=== PATIENT | female | born 1960 | race Caucasian/White ===

== ENCOUNTER 2016-06-21 10:50 | Emergency (ER) | payer MEDICARE, MEDICAID ==
[~2016-06-21] VITALS: Wt 127.0 kg
[~2016-06-21 10:50] MED LIST: ALBUTEROL0.09 MG/A1 INH; ALBUTEROL0.09 MG/A2 IH; ALBUTEROL0.63 MG/3 INH; ALBUTEROL2.5 MG/0.5 INH; ALEVE220 M1 PO; ALTOCOR60 MG PO; AMOXIL500 MG PO; ASPIRIN ADULT L81 M1 PO; ASPIRIN CHEWABL81 MG PO; ASPIRIN325 M2 PO; ASPIRIN325 MG PO; B12,B-12,B 12500 MC1 PO; BACTRIM DS 8001 TA1 PO; BENADRYL ALLERG25 M5 PO; CEPHALEXIN500 M1 PO; CHOLESTEROL MEDS; CIPRO500 MG PO; CIPROFLOXACIN500 MG PO; CRESTOR20 M1 PO; CRESTOR20 MG PO; DIABETA5 MG PO; DOXYCYCLINE HY100 M3 PO; DOXYCYCLINE100 M3 PO; DUONEB 3 MG/3 ML3 M1 INH; EUCERIN, DERMA120 GM T; FAMOTIDINE20 MG PO; FEOSOL325 MG PO; FLAGYL500 MG PO; FLEXERIL10 MG PO; FLONASE ALLERG9.9 ML NAS; GABAPENTIN300 M1 PO; GLIPIZIDE10 M2 PO; HUMALOG100 U/ML SC; HUMALOG100 UNIT/2 SQ; HYDROCHLOROTHIA25 MG PO; HYDROCODONE BIT1 T11 PO; HYDRODIURIL25 MG PO; INVOKANA100 M1 PO; INVOKANA300 M1 PO; IRON325 M1 PO; KEFLEX500 MG PO; LANTUS100 U/ML SC; LEVOTHYROXIN0.125 M1 PO; LEVOTHYROXIN0.125 MG PO; LEVOTHYROXINE0.05 MG PO; LOMOTIL 0.025 M1 TA1 PO; LOMOTIL 0.025 M1 TAB PO; Lomotil,Lonox 01 TAB PO; Lopressor25 MG PO; MEDROL DOSEPAK4 MG PO; MELATONIN10 M2 PO; MELATONIN10 M3 PO; MELOXICAM7.5 MG PO; METFORMIN1000 MG PO; METFORMIN500 MG PO; METOPROLOL SUCC25 M2 PO; MICRONASE5 MG PO; MOTRIN800 MG PO; NEURONTIN300 MG PO; NEURONTIN400 MG PO; NORCO 5-325 TA1 EACH PO; NOVOLIN 70/30 710 ML SC; NOVOLOG 70/30 M10 ML; NOVOLOG1 UNIT/0.0 SC; Nizoral 2%15 GM PO; OFLOXACIN 10 ML10 M1 INTRAOC; PEPCID20 MG PO; PERCOCET 325 MG1 TA2 PO; PRAVACHOL40 MG PO; PREDNISONE10 MG PO; PREDNISONE20 MG PO; PRILOSEC20 M1 PO; PRILOSEC20 MG PO; PROAIR HFA0.09 MG/AC IH; PROVENTIL0.09 MG/A1 IH; PROVENTIL0.09 MG/A1 INH; PROVENTIL0.09 MG/AC IH; PROZAC40 M1 PO; PROZAC40 MG PO; Phenergan25 MG PO; REGLAN5 MG PO; ROBITUSSIN-AC 160 ML PO; SYMBICORT1 AE1 INH; SYNTHROID0.025 MG PO; SYNTHROID0.1 MG PO; TRAMADOL HCL50 MG PO; TRAMADOL50 MG PO; TRIAMCINOLONE AC0.1% T; TRILIPIX45 MG PO; TRIMOX500 MG PO; TRULICITY0.75 MG/0. SC; VIBRAMYCIN100 MG PO; VICODIN 5/500 505 MG PO; VISTARIL25 M1 PO; VISTARIL25 M2 PO; VISTARIL25 MG PO; VITAMIN D22000 UNIT PO; VITAMIN D50000 I3 PO; ZITHROMAX Z PA250 MG PO; ZOFRAN ODT4 MG SL; ZYRTEC10 M1 PO; [UNRECOGNIZED DRUG - OTHER] OP; [UNRECOGNIZED DRUG - OTHER] TD
[2016-06-21] MEDS ORDERED: CEFADROXIL500 M1 PO (11:51)
[2016-06-21] MEDS ORDERED: HYDROCODONE BIT1 T11 PO (11:51)
[2016-06-21] MEDS ORDERED: CLARITIN10 MG PO (11:51)
== END 2016-06-21 12:38 | disposition home or self-care (01) ==
LOC: ED 10:50
DX: H01.001 Unspecified blepharitis right upper eyelid (principal); E11.9 Type 2 diabetes mellitus without complications; F17.200 Nicotine dependence, unspecified, uncomplicated; Z95.5 Presence of coronary angioplasty implant and graft; Z88.8 Allergy status to other drugs, medicaments and biological substances; Z79.4 Long term (current) use of insulin; Z79.899 Other long term (current) drug therapy

== ENCOUNTER 2016-09-29 12:35 | Emergency (ER) | payer MEDICARE, MEDICAID ==
[~2016-09-29] VITALS: Ht 167.6 cm; Wt 131.5 kg
[~2016-09-29 12:35] MED LIST changes: +CEFADROXIL500 M1 PO; +CLARITIN10 MG PO
[2016-09-29] MEDS ORDERED: FISH OIL500 M2 PO (12:58)
[2016-09-29] MEDS ORDERED: EFFEXOR XR75 M1 PO (12:59)
[2016-09-29 13:16] LABS: BASO % 0.4 % (0.0-1.0); EOS # 0.2 10*3/uL (0.0-0.4); EOS % 2.6 % (1.0-4.0); IG # 0.1 10*3/uL (0.0-0.1); LYMPH # 2.5 10*3/uL (1.3-4.4); MEAN CORPUSCULAR HGB 28.4 pg (27.0-31.0); MEAN CORPUSCULAR HGB CONC 32.6 g/dl (33.0-37.0); MEAN PLATELET VOLUME 9.4 fl (9.6-12.3); MONO # 0.3 10*3/uL (0.1-1.0); MONO % 3.4 % (3.0-9.0); NEUT # 4.3 10*3/uL (2.3-7.9); NEUT % 58.6 % (47.0-73.0); PLATELET COUNT AUTOMATED 277 10*3/uL (130-400); RED BLOOD COUNT 5.29 10*6/uL (4.10-5.10); RED CELL DISTRI WIDTH 13.6 % (0-14.5); WHITE BLOOD COUNT 7.3 10*3/uL (4.8-10.8)
[2016-09-29 13:22] LABS: INTERNATIONAL NORM RATIO 0.9 (2.0-3.5)
[2016-09-29 13:28] LABS: ALBUMIN 3.2 gm/dl (3.1-4.5); ALKALINE PHOSPHATASE 145 U/L (45-117); BILIRUBIN, TOTAL 0.2 mg/dl (0.2-1.0); BUN 14 mg/dl (7-24); CARBON DIOXIDE 36 mmol/L (21-32); CHLORIDE 98 mmol/L (98-107); EST GLOM FILT AFRICAN AMERICAN > 60 ml/min; GLUCOSE 222 mg/dL (65-99); MAGNESIUM 1.7 mg/dL (1.5-2.1); POTASSIUM 4.4 mmol/L (3.5-5.1); SGOT/AST 23 IU/L (3-35); SGPT/ALT 32 U/L (12-78); SODIUM 138 mmol/L (136-145); TOTAL PROTEIN 7.6 gm/dL (6.4-8.2)
[2016-09-29] MEDS ORDERED: HYDROCHLOROTHIA25 M1 PO (13:31)
[2016-09-29] MEDS ORDERED: LOMOTIL 0.025 M1 TA1 PO (13:32)
[2016-09-29] MEDS ORDERED: LANTUS100 U/ML SC (13:33)
[2016-09-29 13:34] LABS: TROPONIN I < 0.015 ng/ml (<0.045)
== END 2016-09-29 15:36 | disposition short-term general hospital (02) ==
LOC: ED 12:35
PROVIDERS: Registered Nurse
DX: R20.9 Unspecified disturbances of skin sensation (principal); F17.200 Nicotine dependence, unspecified, uncomplicated; Z88.8 Allergy status to other drugs, medicaments and biological substances; Z79.82 Long term (current) use of aspirin; Z79.899 Other long term (current) drug therapy; Z98.890 Other specified postprocedural states

== ENCOUNTER 2016-10-27 05:41 | Emergency (ER) | payer MEDICARE, MEDICAID ==
[~2016-10-27] VITALS: Ht 167.6 cm; Wt 127.0 kg
--- NOTE | ~2016-10-27 | EKG ---
[place], [place] ELECTROCARDIOGRAM REPORT NAME: ESTHER STERN UNIT #: [id number] ROOM: DOCTOR: KITTY HONG MD BIRTHDATE: [birth year] DOS: 10/27/2016 TIME: 06:27 a.m. Normal sinus rhythm at rate of 77. Normal electrocardiogram. KITTY HONG MD CM:EKGRPT:ELECTROCARDIOGRAM REPORT [id number] KITTY HONG MD
[~2016-10-27 05:41] MED LIST changes: +EFFEXOR XR75 M1 PO; +FISH OIL500 M2 PO; +HYDROCHLOROTHIA25 M1 PO
[2016-10-27] MEDS ORDERED: PLAVIX75 M1 PO (05:52)
[2016-10-27] MEDS ORDERED: PERCOCET 325 MG1 TA5 PO (05:57)
[2016-10-27] MEDS ORDERED: ATORVASTATIN CA40 M1 PO (05:57)
[2016-10-27 06:33] LABS: BASO # 0.1 10*3/uL (0.0-0.1); BASO % 0.3 % (0.0-1.0); EOS # 0.2 10*3/uL (0.0-0.4); EOS % 1.3 % (1.0-4.0); HEMATOCRIT 50.9 % (37.0-47.0); HEMOGLOBIN 16.7 g/dl (12.0-16.0); IG # 0.1 10*3/uL (0.0-0.1); LYMPH # 1.2 10*3/uL (1.3-4.4); LYMPH % 7.7 % (27.0-41.0); MEAN CORPUSCULAR HGB 28.2 pg (27.0-31.0); MEAN CORPUSCULAR HGB CONC 32.8 g/dl (33.0-37.0); MEAN PLATELET VOLUME 9.7 fl (9.6-12.3); MONO # 0.8 10*3/uL (0.1-1.0); MONO % 5.2 % (3.0-9.0); NEUT # 13.4 10*3/uL (2.3-7.9); NEUT % 85.2 % (47.0-73.0); PLATELET COUNT AUTOMATED 316 10*3/uL (130-400); RED BLOOD COUNT 5.92 10*6/uL (4.10-5.10); RED CELL DISTRI WIDTH 14.6 % (0-14.5); WHITE BLOOD COUNT 15.8 10*3/uL (4.8-10.8)
[2016-10-27 07:26] LABS: ALBUMIN 3.3 gm/dl (3.1-4.5); ALKALINE PHOSPHATASE 162 U/L (45-117); BILIRUBIN, TOTAL 0.4 mg/dl (0.2-1.0); BUN 16 mg/dl (7-24); C-REACTIVE PROTEIN 2.18 MG/DL (0-0.3); CARBON DIOXIDE 27 mmol/L (21-32); CHLORIDE 101 mmol/L (98-107); EST GLOM FILT AFRICAN AMERICAN > 60 ml/min; GLUCOSE 203 mg/dL (65-99); MAGNESIUM 1.8 mg/dL (1.5-2.1); POTASSIUM 3.7 mmol/L (3.5-5.1); SGOT/AST 36 IU/L (3-35); SGPT/ALT 38 U/L (12-78); SODIUM 138 mmol/L (136-145); TOTAL PROTEIN 7.4 gm/dL (6.4-8.2)
[2016-10-27 07:28] LABS: TROPONIN I < 0.015 ng/ml (<0.045)
[2016-10-27 09:13] LABS: LA>2 REFLEX 2 HR DRAW NOW
[2016-10-27 09:33] LABS: LA>2 RFLX FOLLOW UP AT 2 HRS 2.2 mmol/L (0.4-2.0)
[2016-10-27] MEDS ORDERED: ZOFRAN ODT4 MG SL (11:16)
[2016-10-27 11:26] LABS: LA>2 REFLEX 4 HR DRAW NOW
== END 2016-10-27 11:19 | disposition home or self-care (01) ==
LOC: ED 05:41
PROVIDERS: Emergency Medicine; Emergency Medicine Emergency Medical Services
DX: K52.9 Noninfective gastroenteritis and colitis, unspecified (principal); J45.909 Unspecified asthma, uncomplicated; E11.9 Type 2 diabetes mellitus without complications; K21.9 Gastro-esophageal reflux disease without esophagitis; E78.5 Hyperlipidemia, unspecified; I10 Essential (primary) hypertension; G89.29 Other chronic pain; M54.9 Dorsalgia, unspecified; I73.9 Peripheral vascular disease, unspecified; Z79.82 Long term (current) use of aspirin; Z79.899 Other long term (current) drug therapy

== ENCOUNTER → 2016-11-23 | Outpatient (CLI) | payer MEDICARE, MEDICAID ==
[~2016-11-23] MED LIST changes: +ATORVASTATIN CA40 M1 PO; +PERCOCET 325 MG1 TA5 PO; +PLAVIX75 M1 PO
--- NOTE | ~2016-11-23 | PR ---
[place], [place] PROGRESS NOTE NAME: ESTHER STERN [facility] #: [id number] UNIT #: [id number] ROOM: DOCTOR: YU RosalesNEVA BIRTHDATE: [birth year] DOS: 11/23/2016 CHIEF COMPLAINT: Diabetic foot ulcer. HISTORY OF PRESENT ILLNESS: This is a 56-year-old female known to the Wound Clinic for recurrent diabetic foot ulcerations. She was discharged back sometime in July where she was here for diabetic foot ulcers, which had healed as well as an abdominal wound secondary to an abscess, but she comes in today stating that she is having recurrent new ulcer noted on the right great toe, which she has had recurrently for years now. She states that she was recently seen by Podiatry and had the wound debrided and also had new diabetic shoes made, but they are just regular molds, but not custom-molded inserts. She does not have any pain with the wounds. They have been present for approximately a few weeks now, but she says it seems to be getting worse and she would like us to evaluate it. There is some bloody drainage occasionally. She does not have any type of dressing supplies and she has not put anything on her wound other than just socks. PAST MEDICAL HISTORY: Significant for multiple medical problems include AAA without rupture, acute renal failure, acute gastroenteritis, asthma exacerbation, atypical chest pain, B12 deficiency, bacteremia, blepharitis, cellulitis, chest pain, chronic back pain, chronic hip pain, constipation, contact dermatitis, severe dermatitis, diabetes type 2, diabetic gastroparesis, dyspnea, hypertension, erythrocytosis, facial parathesias, failure of outpatient treatment, history of fatty liver, gastritis, gastroparesis, GI bleed, carpal tunnel surgery, history of osteomyelitis, history of previous diabetic foot ulcers, hyperglycemia, hyperkalemia, hypoglycemia, hypotension, hypothyroidism, hypoxia, lactic acidosis, leukocytosis, moderate protein-calorie malnutrition, multiple abrasions, obesity, peripheral arterial disease, paronychia, partial small-bowel obstruction, rash, right upper quadrant pain, status post recent carotid endarterectomy on the right side with apparently a small stroke, previous surgery carpal tunnel, knee surgery, EGD, colonoscopy, , right leg angioplasty with stents and stress test. She is status post . SOCIAL HISTORY: She does continue to smoke, does not drink alcohol. She has tried to quit in the past, but has been unsuccessful. FAMILY HISTORY: Significant for colon cancer and lung cancer. CURRENT MEDICATIONS: Her most recent medications are as follows: Hydrochlorothiazide 25 mg p.o. daily, Reglan 5 mg before meals, vitamin D2 50,000 units once a week, 30 units of lispro t.i.d., metoprolol 25 p.o. b.i.d., aspirin 325 p.o. daily, hydroxyzine 25 p.o. t.i.d., albuterol 2 puffs and p.r.n., 0.125 mg p.o. daily of levothyroxine, gabapentin 400 mg p.o. q.i.d., melatonin 10 mg p.o. at bedtime, omega-3 fish oil 2000 units daily, Effexor XR 75 p.o. b.i.d., Lomotil 1 tablet p.o. t.i.d. p.r.n. for diarrhea, Lantus 80 units subQ at bedtime, Plavix 75 p.o. daily, atorvastatin 40 mg p.o. q.p.m. and Percocet 1 tablet p.o. t.i.d. p.r.n. for pain. ALLERGIES: TAPE AND RED FOOD COLORED COLORING. I BELIEVE THERE IS AN ALLERGY [place], [place] [facility]GR[id number] UNIT #: [id number] ROOM: DOCTOR: NEVA NICHOLAS M.D. BIRTHDATE: [birth year] TO PROZA WELL CAUSING SEVERE DERMATITIS. SHE ALSO HAD SOME ALLERGY FROM TOTAL CONTACT CAST MATERIAL. REVIEW OF SYSTEMS: Currently, she denies any pain with the wound. There are no fevers or chills reported. She does complain of occasional GERD, which is chronic that she has had for ____. She does complain of some occasional facial drooping that she has noted since her stroke, but it is very mild and it is definitely improving. The rest of her review of systems including constitutional, HEENT, neck cardiovascular, respiratory, GI, , musculoskeletal, joints, extremities, integumentary, skin, neurologic and psychiatric are negative. At this time, she also does state that she has a fungal or tinea rash on her feet and was wondering if we could prescribe some medication for that. She tried a prescription antifungal cream, but she still has the rash. FOCUSED PHYSICAL EXAMINATION: She is in no acute distress, pleasant, cooperative. Temperature is 98.7, pulse of 80, respirations 18, blood pressure is 118/56. She had an IRIS done, which was 0.97 on the left and 0.88 on the right. She has a wound present on the plantar aspect of the right great toe, right between the fissure area at the proximal joint area. It is measuring 0.3 x 1.7 x 0.3. There is a very thick callused area with some undermining noted from 12-1 o'clock with a maximum depth of 0.5. There is some bleeding noted also at the deeper part of the wound, which appears to be old and secondary to repetitive trauma. Her lower extremity, it is quite hyperkeratotic with very thick callus. She has got palpable pedal pulses. Her toes are warm. She has got good capillary refill. Her foot assessment shows absent sensation in both of her feet. She does have some excoriation, cracking and mild tinea type rash present on the mid foot to ankle area noted. The wound was debrided of hyperkeratotic tissue as well as through the subcutaneous tissue. There was minimal bleeding that was controlled with pressure. Cetacaine spray was used for topical anesthesia. INSTRUMENTS USED: Scalpel, a #15 blade and forceps and scissors, all the undermining was cut away and the post-debridement measurements are as follows: 1.2 x 1.5 x 0.3 in depth. Her most recent blood work shows hemoglobin of 16.7, a white count of 15.8; this is back in early October. Platelets are 316. Chem-7 shows a glucose of 203, BUN of 16, creatinine of 0.8. She had a mildly low prealbumin of 19. ASSESSMENT AND PLAN: Diabetic foot ulcer secondary to severe hyperkeratosis and neuropathy. She had recent diabetic shoes made; however, does not have a custom made insert. I would like her to see if we can arrange for ____ to come and evaluate her and see if we can come up with offloading walking boot for her as well as to try to help her inserts as well. In the meantime, there is no sign of an acute infection. We will continue with collagen and silver and a foam and have her changed it every other day and use a bulky dressing. She does have some history of peripheral vascular disease. Her IRIS was adequate today. She was going to be seen by Dr. Delarosa. She has had stenting done of that right lower extremity and we did advise her to follow up with him, but that has been [place], [place] PROGRESS NOTE [facility] [id number] UNIT #: [id number] ROOM: DOCTOR: YU Rosales,NEVA BIRTHDATE: [birth year] on hold for several other medical reasons that she has had to deal with. So, we will repeat our recommendations the next time she comes as well. Followup is in 1 week. NEVA NICHOLAS MD CM:CLARE [id number] NEVA NICHOLAS M.D. 11/24/16 0710 interface
== END ==
LOC: WOUNDCARE 12:52
DX: E11.621 Type 2 diabetes mellitus with foot ulcer (principal); L97.512 Non-pressure chronic ulcer of other part of right foot with fat layer exposed; E11.51 Type 2 diabetes mellitus with diabetic peripheral angiopathy without gangrene; I10 Essential (primary) hypertension; E03.9 Hypothyroidism, unspecified; E66.9 Obesity, unspecified; E11.69 Type 2 diabetes mellitus with other specified complication; M86.9 Osteomyelitis, unspecified; E11.65 Type 2 diabetes mellitus with hyperglycemia; E11.40 Type 2 diabetes mellitus with diabetic neuropathy, unspecified; F17.200 Nicotine dependence, unspecified, uncomplicated

== ENCOUNTER → 2016-11-30 | Outpatient (CLI) | payer MEDICARE, MEDICAID ==
--- NOTE | ~2016-11-30 | PR ---
[place], [place] PROGRESS NOTE NAME: ESTHER STERN [facility] #: [id number] UNIT #: [id number] ROOM: DOCTOR: NEVA NICHOLAS M.D. BIRTHDATE: [birth year] DOS: 11/30/2016 WOUND CARE PROGRESS NOTE CHIEF COMPLAINT: Diabetic foot ulcer of the right great toe. HISTORY OF PRESENT ILLNESS: This is a 56-year-old female with type 2 diabetes, not very well controlled with neuropathy and history of peripheral vascular disease who comes in for a followup visit for a right great toe ulcer she has had for approximately 3-4 weeks now. She came to the wound clinic, this is her second visit this month for this wound. She has had this wound off and on for years, however. She has no specific complaints, no pain, no fevers, chills or change in drainage. She said she did not get her supplies that had been ordered for her. She had a new pair of diabetic shoes, but did not get a custom made orthotic mold and she is here for possible evaluation they ordered as well to see if there is an offloading boot for her. PHYSICAL EXAMINATION: VITAL SIGNS: She is afebrile, pulse of 76, respirations 18, blood pressure is 108/58. The wound is measuring smaller at 0.2 x 0.7 x 0.2. There is some thick callus around it, but overall looks much better. There is no undermining as noted from last week. No purulence or tenderness. A selective debridement was done. The tissue removed was just nonviable, hyperkeratotic tissue only. This was accomplished with a #15 blade. There was minimal bleeding that was controlled with pressure. Post-debridement measurements are as follows: 0.4 x 1.1 x 0.2. ASSESSMENT AND PLAN: Diabetic foot ulcer, Hicks grade 1. The patient's wound appears to be improving. We will continue with the collagen dressing and silver for bioburden control and have her follow up in one week. A walking boot was provided to her today for offloading. Follow up in 1 week. NEVA NICHOLAS MD CM:PNTRANS [id number] NEVA NICHOLAS M.D. 11/30/16 2232 interface
== END ==
LOC: WOUNDCARE 02:06
DX: E11.621 Type 2 diabetes mellitus with foot ulcer (principal); L97.512 Non-pressure chronic ulcer of other part of right foot with fat layer exposed; E11.51 Type 2 diabetes mellitus with diabetic peripheral angiopathy without gangrene; L84 Corns and callosities

== ENCOUNTER → 2016-12-07 | Outpatient (CLI) | payer MEDICARE, MEDICAID ==
--- NOTE | ~2016-12-07 | PR ---
[place], [place] PROGRESS NOTE NAME: ESTHER STERN [facility] #: [id number] UNIT #: [id number] ROOM: DOCTOR: YU RosalesNEVA BIRTHDATE: [birth year] DOS: 12/07/2016 CHIEF COMPLAINT: Followup of diabetic foot ulcer. HISTORY OF PRESENT ILLNESS: This is a 56-year-old female with diabetes type 2, not very well controlled with neuropathy, recurrent diabetic ulcers. She has been in treatment for 2 weeks now. She has had a chronic and recurrent wound on the right great toe on the plantar aspect associated with severe callus. She was given an offloading walking boots provided by [employer] for helping to offload this area; however, she said she could only tolerate it for 2-3 days because it caused low back pain, otherwise has been using her other shoes that she got. In any case, she reports no acute change with her wound. She thinks she is looking better. However, she does notice some new areas that she thinks she might have stepped on something, which is new and is located at the mid portion of the foot and several new fissuring type cracks in her feet, otherwise no specific complaints. OBJECTIVE: VITAL SIGNS: Stable, temperature is 98.1, pulse of 82, respirations 18, blood pressure is 110/62. The right great toe ulcer is measuring 0.25 x 0.8 x 0.2. There is pretty thick callus. The base of the wound looks fairly clean. There is no sign of infection. There are several new wounds that are open, wound #27 is on the medial plantar aspect and is measuring 0.1 x 1 x 0.1 and there is a new wound on the lateral side of the foot that is measuring 0.4 x 0.1 x 0.1. There is also another wound 29 and 30, #29 is measuring 1.5 x 0.1 x 0.1 and wound #30 is measuring 0.5 x 0.1 x 0.1. A debridement was done of three of the wounds, all 3 were selective debridements only, were just nonviable tissue was removed using a #15 blade and forceps and scissors. The wound is #26 was debrided first selectively. There was moderate amount of bleeding that was controlled with pressure and silver nitrate. The post-debridement measurements are unchanged. The wound #29, post-debridement measurements are the same. The wound #27 was debrided and the post-debridement measurements are 1 x 0.9 x 0.1 that is the one located on the mid foot. ASSESSMENT AND PLAN: Chronic recurrent diabetic foot ulcers secondary to neuropathy, so I will go ahead and continue with the collagen for now. She seems to be responding pretty well to it. I have asked her, to instead of using her regular shoes, to use postop shoe when she is at home, she has had before and hopefully that will help offload the toe a little bit better. She cannot tolerate a contact cast. She had a severe allergic reaction to the cast and some of the cast material, so she is not a candidate for that, so we will not use that for her. She has diabetic shoes that unfortunately continued to cause her recurrent problem. In general, the wounds are stable. There is no sign of infection. We will have her follow up in 1 week. [place], [place] PROGRESS NOTE NAME: ESTHER TSERN [facility] [id number] UNIT #: [id number] ROOM: DOCTOR: NEVA NICHOLAS M.D. BIRTHDATE: [birth year] NEVA NICHOLAS MD CM:PNTRANS [id number] NEVA NICHOLAS M.D. 12/08/16 1145 interface
== END ==
LOC: WOUNDCARE 01:58
DX: E11.621 Type 2 diabetes mellitus with foot ulcer (principal); L97.512 Non-pressure chronic ulcer of other part of right foot with fat layer exposed; E11.51 Type 2 diabetes mellitus with diabetic peripheral angiopathy without gangrene; E11.40 Type 2 diabetes mellitus with diabetic neuropathy, unspecified

== ENCOUNTER → 2016-12-14 | Outpatient (CLI) | payer MEDICARE, MEDICAID ==
--- NOTE | ~2016-12-14 | PR ---
[place], [place] PROGRESS NOTE NAME: ESTHER STERN [facility] #: [id number] UNIT #: [id number] ROOM: DOCTOR: YU RosalesNEVA BIRTHDATE: [birth year] DOS: 12/14/2016 CHIEF COMPLAINT: Diabetic foot ulcer. HISTORY OF PRESENT ILLNESS: She is a 56-year-old female with uncontrolled diabetes and neuropathy with recurrent diabetic ulcer. She has one in particular that has been present on and off for years. It is located on the plantar aspect right in the proximal portion of the right great toe. She has had a lot of difficulty offloading, cannot do a total contact cast. She was given an offloading walking boot, but she could not tolerate it as it caused back pain. She also says even with the postop shoe she is a little uncomfortable with it as well, so she has been wearing her new diabetic shoes, but they do not have custom inserts. This is her third week in treatment. She has no specific complaints. There is occasional drainage, bloody at times with the toe wound. She also has a wound located on the mid foot that she is not quite sure how it started, but in my opinion, it seems to have been brought on by the new shoes. In any case, there has no new complaints. No fevers, chills. No changes in her wounds. PHYSICAL EXAMINATION: VITAL SIGNS: Stable. Temperature 97.9, pulse of 77, respirations 18, blood pressure is 110/60. WOUND EXAMINATION: Her wound #26 is on the right great toe, it is measuring 0.3 x 1 x 0.2. There is large amount of callus and some old bleeding around it. The wound #27 is right in the mid foot, it is measuring slightly bigger at 0.7 in length x 0.7 x 0.1 and there is some undermining noted. It is somewhat macerated. Wound #28 appears healed, it is 0.1 x 0.1 x 0.1. Wound #29 is healed. The wound #30 is healed. Selective debridement was done of wound #26 and wound #27. The tissue removed was a nonviable hyperkeratotic callus as well as some devitalized epidermis, this was selective only. There was a moderate amount of bleeding with both these wounds. The instrument used was a #15 blade and a curette. The post-debridement measurements on the toe wound are 0.3 x 0.9 x 0.2. The wound on the plantar foot medial aspect is measuring 0.8 x 0.8 x 0.1. I also used silver nitrate to help control bleeding post-debridement on the right great toe wound. ASSESSMENT AND PLAN: Chronic recurrent diabetic foot ulcers secondary to neuropathy. She said she is going to call the people who have made her shoes to see if they can make custom made inserts, I think this is a good idea as really offloading is really the blankenship to this problem. In the meantime, I think the wound is a little bit macerated, I would like to change from a collagen to Aquacel silver and have her follow up in the Wound Clinic in one week. [place], [place] PROGRESS NOTE NAME: ESTHER STERN UNIT #: [id number] ROOM: DOCTOR: NEVA NICHOLAS M.D. BIRTHDATE: [birth year] NEVA NICHOLAS MD CM:CLARE [id number] NEVA NICHOLAS M.D. 12/14/16 1600 interface
== END ==
LOC: WOUNDCARE 02:26
DX: E11.621 Type 2 diabetes mellitus with foot ulcer (principal); L97.512 Non-pressure chronic ulcer of other part of right foot with fat layer exposed; E11.51 Type 2 diabetes mellitus with diabetic peripheral angiopathy without gangrene; E11.40 Type 2 diabetes mellitus with diabetic neuropathy, unspecified; L84 Corns and callosities

== ENCOUNTER → 2016-12-21 | Outpatient (CLI) | payer MEDICARE, MEDICAID | LOC: WOUNDCARE 02:04 | DX: E11.621 Type 2 diabetes mellitus with foot ulcer (principal); L97.512 Non-pressure chronic ulcer of other part of right foot with fat layer exposed; E11.51 Type 2 diabetes mellitus with diabetic peripheral angiopathy without gangrene; E11.42 Type 2 diabetes mellitus with diabetic polyneuropathy; L84 Corns and callosities ==

== ENCOUNTER → 2017-01-06 | Outpatient (CLI) | payer MEDICARE, MEDICAID | LOC: WOUNDCARE 12:35 | DX: E11.621 Type 2 diabetes mellitus with foot ulcer (principal); L97.512 Non-pressure chronic ulcer of other part of right foot with fat layer exposed; E11.51 Type 2 diabetes mellitus with diabetic peripheral angiopathy without gangrene; L84 Corns and callosities; E11.42 Type 2 diabetes mellitus with diabetic polyneuropathy; F17.200 Nicotine dependence, unspecified, uncomplicated ==

== ENCOUNTER → 2017-01-18 | Outpatient (CLI) | payer MEDICARE, MEDICAID ==
--- NOTE | ~2017-01-18 | PR ---
[place], [place] PROGRESS NOTE NAME: ESTHER STERN [facility] #: [id number] UNIT #: [id number] ROOM: DOCTOR: YU RosalesNEVA BIRTHDATE: [birth year] DOS: 01/18/2017 WOUND CARE PROGRESS NOTE CHIEF COMPLAINT: Follow up of diabetic foot ulcers. HISTORY OF PRESENT ILLNESS: This is a 56-year-old female with severe neuropathy secondary to diabetes who comes in to the Wound Care Clinic for a chronic and recurrent ulcer of the right great toe plantar aspect. She has been coming to the Wound Clinic for 8 weeks now. She missed a few appointments several weeks ago and then when she came back 2 weeks ago, it was noted that the wound was quite large and had definitely gotten worse. An MRI was ordered, which she would have done today, the results are still pending. So, she comes in today stating that she thinks overall, the wound is looking better. She is using a TheraHoney sheet and she seems to like it. She is using her diabetic shoes, which are fairly new and a postop shoe at home, she has no specific complaints. OBJECTIVE: VITAL SIGNS: Stable. Temperature 98.7, pulse 72, respirations 18, blood pressure 110/62. WOUND EXAMINATION: The wound is measuring 1.2 x 1.1 x 0.4 and there is a very thick callus noted around it. The periwound, there is really no odor. There is a little bit of undermining noted of 0.3 cm. No purulence, tenderness or erythema to suggest infection. The next wound is a fissure-type wound that is measuring 1 x 0.2 x 0.2 in depth. This looks fairly clean and is just a fissure-type area from pressure and a very dry thick calloused skin. Debridement was done of both of these areas, a selective debridement only. The tissue removed was just devitalized hyperkeratosis, fibrin and slough with a scalpel. This occurred with the scalpel. There was minimal bleeding that was controlled with pressure. Post-debridement measurements are unchanged except for the depth of 0.2 of the right great toe wound. ASSESSMENT AND PLAN: Recurrent diabetic foot ulcers. I think the issue really is offloading at this point, she has new diabetic shoes. We did ask her to see if maybe she can go back to the place where she got them and see if they can adjust her inserts and see if that would help. She was unable to tolerate our offloading boot that we had asked her to try because it hurt her back. She cannot tolerate a contact cast due to a severe allergic reaction she had from the cast material. We will go ahead and continue with the TheraHoney, which she seems to like and a foam dressing. I did ask her to bring in her older diabetic shoes to see if there is something we can do with inserts to see if that would help offload the area bed. Also her postop shoe, I asked her to bring that in too, so we can try and see if we can adjust that as well. She was to see Dr. Delarosa in the past; however, due to multiple various reasons, this was canceled and rescheduled and she has not really got in to see him, she plans on seeing him soon. She says she is going to be due for a repeat ultrasound for her lower extremities as well as her aneurysm. She has an abdominal aneurysm, so she is going to get this study done. Hopefully, we will get the results in the near future. In addition, I like her to repeat her blood work including a hemoglobin A1c when she gets a chance. Otherwise, we will follow up on the MRI. Followup [place], [place] PROGRESS NOTE NAME: ESTHER STERN [facility] #: [id number] UNIT #: [id number] ROOM: DOCTOR: NEVA NICHOLAS M.D. BIRTHDATE: [birth year] in one week. NEVA NICHOLAS MD CM:CLARE [id number] 1604 NEVA NICHOLAS M.D. 01/26/17 1008 interface
== END | disposition home or self-care (01) ==
LOC: CANPRECLI → WOUNDCARE 02:50
DX: E11.621 Type 2 diabetes mellitus with foot ulcer (principal); L97.512 Non-pressure chronic ulcer of other part of right foot with fat layer exposed; E11.51 Type 2 diabetes mellitus with diabetic peripheral angiopathy without gangrene; E11.41 Type 2 diabetes mellitus with diabetic mononeuropathy; L84 Corns and callosities

== ENCOUNTER → 2017-01-18 | Outpatient (CLI) | payer MEDICARE, MEDICAID ==
--- NOTE | ~2017-01-18 | PR ---
[place], [place] PROGRESS NOTE NAME: ESTHER STERN [facility] #: [id number] UNIT #: [id number] ROOM: DOCTOR: YU RosalesNEVA BIRTHDATE: [birth year] DOS: 01/18/2017 WOUND CARE PROGRESS NOTE CHIEF COMPLAINT: Follow up of diabetic foot ulcers. HISTORY OF PRESENT ILLNESS: This is a 56-year-old female with severe neuropathy secondary to diabetes who comes in to the Wound Care Clinic for a chronic and recurrent ulcer of the right great toe plantar aspect. She has been coming to the Wound Clinic for 8 weeks now. She missed a few appointments several weeks ago and then when she came back 2 weeks ago, it was noted that the wound was quite large and had definitely gotten worse. An MRI was ordered, which she would have done today, the results are still pending. So, she comes in today stating that she thinks overall, the wound is looking better. She is using a TheraHoney sheet and she seems to like it. She is using her diabetic shoes, which are fairly new and a postop shoe at home, she has no specific complaints. OBJECTIVE: VITAL SIGNS: Stable. Temperature 98.7, pulse 72, respirations 18, blood pressure 110/62. WOUND EXAMINATION: The wound is measuring 1.2 x 1.1 x 0.4 and there is a very thick callus noted around it. The periwound, there is really no odor. There is a little bit of undermining noted of 0.3 cm. No purulence, tenderness or erythema to suggest infection. The next wound is a fissure-type wound that is measuring 1 x 0.2 x 0.2 in depth. This looks fairly clean and is just a fissure-type area from pressure and a very dry thick calloused skin. Debridement was done of both of these areas, a selective debridement only. The tissue removed was just devitalized hyperkeratosis, fibrin and slough with a scalpel. This occurred with the scalpel. There was minimal bleeding that was controlled with pressure. Post-debridement measurements are unchanged except for the depth of 0.2 of the right great toe wound. ASSESSMENT AND PLAN: Recurrent diabetic foot ulcers. I think the issue really is offloading at this point, she has new diabetic shoes. We did ask her to see if maybe she can go back to the place where she got them and see if they can adjust her inserts and see if that would help. She was unable to tolerate our offloading boot that we had asked her to try because it hurt her back. She cannot tolerate a contact cast due to a severe allergic reaction she had from the cast material. We will go ahead and continue with the TheraHoney, which she seems to like and a foam dressing. I did ask her to bring in her older diabetic shoes to see if there is something we can do with inserts to see if that would help offload the area bed. Also her postop shoe, I asked her to bring that in too, so we can try and see if we can adjust that as well. She was to see Dr. Delarosa in the past; however, due to multiple various reasons, this was canceled and rescheduled and she has not really got in to see him, she plans on seeing him soon. She says she is going to be due for a repeat ultrasound for her lower extremities as well as her aneurysm. She has an abdominal aneurysm, so she is going to get this study done. Hopefully, we will get the results in the near future. In addition, I like her to repeat her blood work including a hemoglobin A1c when she gets a chance. Otherwise, we will follow up on the MRI. Followup [place], [place] PROGRESS NOTE NAME: ESTHER STERN [facility] #: [id number] UNIT #: [id number] ROOM: DOCTOR: NEVA NICHOLAS M.D. BIRTHDATE: [birth year] in one week. NEVA NICHOLAS MD CM:CLARE 1527 1604 NEVA NICHOLAS M.D. 01/19/17 0927 interface
== END | disposition home or self-care (01) ==
LOC: MRI 11:00
DX: E11.621 Type 2 diabetes mellitus with foot ulcer (principal); L97.512 Non-pressure chronic ulcer of other part of right foot with fat layer exposed

== ENCOUNTER → 2017-01-27 | Outpatient (CLI) | payer MEDICARE, MEDICAID ==
--- NOTE | ~2017-01-27 | PR ---
[place], [place] PROGRESS NOTE NAME: ESTHER STERN [facility] #: [id number] UNIT #: [id number] ROOM: DOCTOR: YU RosalesENVA BIRTHDATE: [birth year] DOS: 01/27/2017 CHIEF COMPLAINT: Followup of diabetic foot ulcers. HISTORY OF PRESENT ILLNESS: This is a 56-year-old female with recurrent and chronic diabetic foot ulcers of the right foot that include the right great toe as well as a fissure-type wound on the bottom of the right foot. She has been coming to the [facility]ound [facility] for 9 weeks now. She had an MRI done last week as her great toe ulcer appeared to be quite a bit larger in the last past few weeks, so that was done and was negative for any bony infection. She was also started on TheraHoney dressing and she really seems to like that. She offers no specific complaints. She stated she is going to be starting ciprofloxacin for urinary tract infection that was prescribed by her PCP. She states recently this past week, she has been up on her feet more than usual, has been walking around in her diabetic shoes and has been up about much more than usual. Her sugars are still about the 180s range normally. She states if anything drops below 150, she gets to feel shaky. She is on Chantix to try to help her quit smoking. She offers no other specific complaints. She has noted that she felt her foot feeling like there was a tight band around it on the mid foot area and there is some slight redness noted on the foot. She also had complained of some calf discomfort and her PCP did a Doppler ultrasound which was negative according to the patient. OBJECTIVE: VITAL SIGNS: Show a blood pressure of 102/58, pulse of 72, respirations 18 and temperature 98.1. SKIN: The right great toe wound is measuring 1.2 x 1.1 x 0.2. It looks to be cleaner wall than last week. There is still some surrounding callus but does not seem to be as quite as thick as before. There is some chronic erythema around the toe. There is no purulence. The fissure wound is located between the fourth and fifth digit. It is measuring a little bit longer at 2 x 0.2 x 0.2. It does not appear to be infected but it is still open. There is also a new wound located on the lateral distal part of the foot that is measuring 1.3 x 0.4 x 0.1. Debridement was done of all the wounds. Debridement of the right great toe, the tissue removed was hyperkeratosis, fibrin, slough and subcutaneous tissue. There was minimal bleeding that was controlled with pressure. Post-debridement measurements were slightly bigger 1.3 x 1.3 x 0.3. The patient tolerated debridement well. The instrument utilized was a #15 blade. There was also a selective debridement done on the other wounds, where the tissue removed was just hyperkeratosis only. There was no bleeding and this occurred with a scalpel and a #15 blade. Post-debridement measurements were unchanged. The foot was noted to be slightly erythematous, although she does have some chronic erythema off and on of the toes and foot0 but it does seem to be more noticeable to me, so there may be an early cellulitis starting. She does have open wounds and that is definitely a risk for cellulitis. I did explain to the patient that I was going to add doxycycline to the Cipro that she is going to take for the UTI, and I wanted her to make sure she watches for any spreading erythema or fevers, chills or pain. She stated she is going to watch for that. She does seem to like [facility], so we will continue [place], [place] PROGRESS NOTE NAME: ESTHER STERN [facility] #: [id number] UNIT #: [id number] ROOM: DOCTOR: NEVA NICHOLAS M.D. BIRTHDATE: [birth year] with this for now. The wounds do appear stable, although she does have a new area on the lateral side of the foot which is from her footwear. She is not a candidate for total contact cast and she was provided an offloading shoe or an offloading boot but does not use it because it causes her back pain. So, she still uses her tennis shoes which are diabetic; however, they do not have custom made inserts. I did ask her to try to bring in an old pair of shoes that we can perhaps use felt padding to try to see if we can offload the areas when she comes back, but in the meantime, I would have use her postop shoe while she is at home. NEVA NICHOLAS MD CM:CLARE [id number] NEVA NICHOLAS M.D. 01/27/17 1346 interface
== END ==
LOC: WOUNDCARE 02:59
DX: E11.621 Type 2 diabetes mellitus with foot ulcer (principal); L97.512 Non-pressure chronic ulcer of other part of right foot with fat layer exposed; E11.51 Type 2 diabetes mellitus with diabetic peripheral angiopathy without gangrene

== ENCOUNTER 2017-02-06 11:45 | Emergency (ER) | payer MEDICARE, MEDICAID ==
[~2017-02-06] VITALS: Ht 167.6 cm; Wt 129.3 kg
[2017-02-06] MEDS ORDERED: PREDNISONE10 MG PO (12:57)
[2017-02-06] MEDS ORDERED: NORCO 5-325 TA1 EACH PO (13:26)
== END 2017-02-06 14:07 | disposition home or self-care (01) ==
LOC: ED 11:45
DX: S92.254A Nondisplaced fracture of navicular [scaphoid] of right foot, initial encounter for closed fracture (principal); I10 Essential (primary) hypertension; K21.9 Gastro-esophageal reflux disease without esophagitis; J45.909 Unspecified asthma, uncomplicated; E78.5 Hyperlipidemia, unspecified; E03.9 Hypothyroidism, unspecified; M86.9 Osteomyelitis, unspecified; E11.43 Type 2 diabetes mellitus with diabetic autonomic (poly)neuropathy; K31.84 Gastroparesis; F17.200 Nicotine dependence, unspecified, uncomplicated; Z79.899 Other long term (current) drug therapy; Z79.82 Long term (current) use of aspirin; Z79.4 Long term (current) use of insulin; X58.XXXA Exposure to other specified factors, initial encounter; Y93.89 Activity, other specified; Y92.89 Other specified places as the place of occurrence of the external cause; Y99.8 Other external cause status

== ENCOUNTER → 2017-02-10 | Outpatient (CLI) | payer MEDICARE, MEDICAID ==
--- NOTE | ~2017-02-10 | PR ---
[place], [place] PROGRESS NOTE NAME: ESTHER STERN [facility] #: [id number] UNIT #: [id number] ROOM: DOCTOR: YU RosalesNEVA BIRTHDATE: [birth year] DOS: 02/10/2017 WOUND CARE FOLLOWUP NOTE CHIEF COMPLAINT: Followup of diabetic foot ulcers. HISTORY OF PRESENT ILLNESS: The location of the wound is the right foot. This is a 56-year-old female with uncontrolled diabetes and recurrent diabetic ulcers on the bottom of her right great toe, which she has had off and on for years now. She also has several other ulcerations on her foot as well that are recurrent. In addition, she is a continued smoker and has been unable to follow in the wound clinic consistently. She apparently had a recent diagnosis of fracture of the foot. According to the patient, she said it was a stress fracture and she is in a walking boot for this. Otherwise, she has no other specific complaints. OBJECTIVE: VITAL SIGNS: Stable. Temperature is 98.1, pulse is 66, respirations 18, and blood pressure is 122/50. WOUND EXAM: The wound 26 is measuring 1 x 1.1 x 0.4. There is very very thick callus present. There is minimal fibrin slough present in the base of the wound. Otherwise, the wound is looking fairly clean. The other wound, which is a fissure type wound is measuring smaller at 1.2 x 0.1 x 0.1 and it looks fairly stable. The other wound is also located on the right lateral foot and is measuring slightly smaller at 1 x 0.3 x 0.1. A debridement was done of the right great toe wound. This was a subcutaneous debridement. Tissue removed was hyperkeratoses fibrin slough, biofilm and subcutaneous tissue. There was a moderate amount of bleeding that was controlled with pressure. The post-debridement measurements are the same 1.1 x 0.3 x 0.4. It does not appear quite as deep as it did when she first presented after callus removed; however, it does look like there is some epithelial tissue growing in that area and I think that she is good at heel with somewhat of a divot present. I would not be surprised if that occurs. The instrument used was a #15 blade and a curette. There was moderate bleeding controlled with pressure. The other fissure wound between the fourth and fifth metatarsal head was selectively debrided of just hyperkeratosis by a #15 blade. There was no bleeding and post-debridement measurements were unchanged. The other wound was left alone. ASSESSMENT AND PLAN: Diabetic foot ulcers, which are stable at this point. There is no sign of acute infection. We will continue with the present dressing. She really likes it with Coral and have her follow up in 1 week, hopefully with her being in a walking boot, this will help offload the area even further. Due to the multiple comorbid conditions and poorly controlled diabetes as well as continued smoking and difficulty making weekly appointments, this patient should be made a complex. Followup is in one week. [place], [place] PROGRESS NOTE NAME: ESTHER STERN [facility] #: [id number] UNIT #: [id number] ROOM: DOCTOR: NEVA NICHOLAS M.D. BIRTHDATE: [birth year] NEVA NICHOLAS MD CM:PNTRANS [phone] NEVA NICHOLAS M.D. 02/11/17 0100 interface
== END | disposition home or self-care (01) ==
LOC: WOUNDCARE 03:04
DX: E11.621 Type 2 diabetes mellitus with foot ulcer (principal); L97.512 Non-pressure chronic ulcer of other part of right foot with fat layer exposed; E11.51 Type 2 diabetes mellitus with diabetic peripheral angiopathy without gangrene; L84 Corns and callosities

== ENCOUNTER → 2017-02-15 | Outpatient (CLI) | payer MEDICARE, MEDICAID ==
[2017-02-15 10:21] LABS: BUN 16 mg/dl (7-24); CREATININE 0.95 mg/dL (0.55-1.02)
== END | disposition home or self-care (01) ==
LOC: CT 02-10 08:00 → LAB 09:47 → CT 10:00
PROVIDERS: Internal Medicine Critical Care Medicine
DX: I71.2 Thoracic aortic aneurysm, without rupture (principal); I25.10 Atherosclerotic heart disease of native coronary artery without angina pectoris; K76.0 Fatty (change of) liver, not elsewhere classified; Z87.891 Personal history of nicotine dependence

== ENCOUNTER 2017-02-23 13:45 | Emergency (ER) | payer MEDICARE, MEDICAID ==
[~2017-02-23] VITALS: Wt 127.0 kg
--- NOTE | ~2017-02-23 | EKG ---
[place], [place] ELECTROCARDIOGRAM REPORT NAME: ESTHER STERN UNIT #: [id number] ROOM: DOCTOR: NICOLETTE ZHANG MD,HARRISON BIRTHDATE: [birth year] DOS: 02/23/2017 ELECTROCARDIOGRAM The electrocardiogram is done on 02/23/2017 at 1400 hours and 34 minutes. Normal sinus rhythm was observed for the patient with heart rate of 67 beats per minute without any other electrocardiac abnormalities. HARRSION IWLL MD CM:EKGRPT:ELECTROCARDIOGRAM REPORT [id number] HARRISON ZHANG MD
[2017-02-23 14:43] LABS: BASO % 0.4 % (0.0-1.0); EOS # 0.3 10*3/uL (0.0-0.4); EOS % 2.7 % (1.0-4.0); HEMATOCRIT 45.7 % (37.0-47.0); HEMOGLOBIN 14.1 g/dl (12.0-16.0); LYMPH # 2.5 10*3/uL (1.3-4.4); LYMPH % 24.5 % (27.0-41.0); MEAN CELL VOLUME 82.6 fl (81.0-99.0); MEAN CORPUSCULAR HGB 25.5 pg (27.0-31.0); MEAN CORPUSCULAR HGB CONC 30.9 g/dl (33.0-37.0); MONO # 0.3 10*3/uL (0.1-1.0); MONO % 2.6 % (3.0-9.0); NEUT % 69.4 % (47.0-73.0); PLATELET COUNT AUTOMATED 341 10*3/uL (130-400); RED BLOOD COUNT 5.53 10*6/uL (4.10-5.10); RED CELL DISTRI WIDTH 14.7 % (0-14.5)
[2017-02-23 14:52] LABS: ACT PARTIAL THROMBO TIME 22.9 SECONDS (20.8-31.5); INTERNATIONAL NORM RATIO 0.9 (2.0-3.5)
[2017-02-23 15:04] LABS: ALBUMIN 3.2 gm/dl (3.1-4.5); ALKALINE PHOSPHATASE 205 U/L (45-117); BUN 13 mg/dl (7-24); CHLORIDE 95 mmol/L (98-107); CKMB 1.5 ng/ml (0.5-3.6); CPK 82 U/L (26-192); CREATININE 1.17 mg/dL (0.55-1.02); LIPASE 181 U/L (73-393); MAGNESIUM 1.8 mg/dL (1.5-2.1); SGOT/AST 51 IU/L (3-35); SGPT/ALT 47 U/L (12-78); SODIUM 134 mmol/L (136-145); TOTAL PROTEIN 8.3 gm/dL (6.4-8.2)
[2017-02-23 15:07] LABS: TROPONIN I < 0.015 ng/ml (<0.045)
[2017-02-23] MEDS ORDERED: DOXYCYCLINE100 M3 PO (17:40)
[2017-02-23] MEDS ORDERED: PREDNISONE10 MG PO (17:40)
== END 2017-02-23 18:05 | disposition left against medical advice (07) ==
LOC: ED 13:45
PROVIDERS: Internal Medicine
DX: J40 Bronchitis, not specified as acute or chronic (principal); J45.909 Unspecified asthma, uncomplicated; K21.9 Gastro-esophageal reflux disease without esophagitis; E78.5 Hyperlipidemia, unspecified; I10 Essential (primary) hypertension; E03.9 Hypothyroidism, unspecified; E11.43 Type 2 diabetes mellitus with diabetic autonomic (poly)neuropathy; K31.84 Gastroparesis; E11.40 Type 2 diabetes mellitus with diabetic neuropathy, unspecified; F17.200 Nicotine dependence, unspecified, uncomplicated; Z79.899 Other long term (current) drug therapy; Z79.82 Long term (current) use of aspirin

== ENCOUNTER → 2017-02-24 | Outpatient (CLI) | payer MEDICARE, MEDICAID ==
--- NOTE | ~2017-02-24 | PR ---
[place], [place] PROGRESS NOTE NAME: ESTHER STERN [facility] #: [id number] UNIT #: [id number] ROOM: DOCTOR: YU RosalesNEVA BIRTHDATE: [birth year] DOS: 02/24/2017 CHIEF COMPLAINT: Followup of diabetic foot ulcers. HISTORY OF PRESENT ILLNESS: This is a 56-year-old female with recurrent and chronic diabetic foot ulcers of the right foot. She has had a recurrent wound on her right great toe for several years now off and on. She also has been somewhat inconsistent with her wound care followup, but currently she is on TheraHoney Sheet dressing and she seems to like that wound dressing. She did state that she was seen in the Emergency Room yesterday as she was feeling poorly, became profusely diaphoretic suddenly and then with diagnosis of bronchitis, per patient report, was given steroids. When she came home, she checked her sugar, it was over 400 and she subsequently stopped the steroids on her own volition. Normally her sugars run in the 200s. In any case, she has no specific complaints regarding the wound. There is occasional drainage, no pain, no fevers or chills. PHYSICAL EXAMINATION: VITAL SIGNS: Temperature is 98.2, pulse is 76, respirations 18, blood pressure is 110/60. SKIN: The wound on the right great toe is measuring smaller 0.8 x 0.8 x 0.2. It definitely looks clean. There is no sign of infection. There is still some thick callus noted. The right lateral posterior proximal wound is measuring 1.8 x 0.1 x 0.1. Definitely measuring smaller. The right lateral foot is measuring 0.8 x 0.2 x 0.1 and has improved. Selective debridement was done of all of these wounds to remove the hyperkeratotic areas and callus with a #15 blade. There was no bleeding. The patient tolerated the debridement well. Post-debridement measurements of the right great toe wound is 0.9 x 0.8 x 0.2. Post-debridement measurements of the right lateral foot wound is 1.4 x 0.1 x 0.1. The right lateral distal wound is measuring 0.8 x 0.1 x 0.1 that is the fissure wound. ASSESSMENT AND PLAN: Multiple diabetic foot ulcers, which are chronic, due to callus. Overall they seem to be stable and improving. I did discuss with her considering possibility of EpiFix graft for the right great toe ulcer. It seems to be improving; however, once the graft is applied, she cannot get it wet and she wishes to be able to take a shower. So I suggest to wait and see, as long as it continues to improve, we will continue with the present course; however, if we stall again, we may want to reconsider graft. Followup is in one week. [place], [place] PROGRESS NOTE NAME: [facility] STERN [facility] #[facility] [id number] UNIT #: [id number] ROOM: DOCTOR: NEVA NICHOLAS M.D. BIRTHDATE: [birth year] NEVA NICHOLAS MD CM:CLARE [id number] NEVA NICHOLAS M.D. 02/25/17 0545 interface
== END | disposition home or self-care (01) ==
LOC: WOUNDCARE 13:40
DX: E11.621 Type 2 diabetes mellitus with foot ulcer (principal); L97.512 Non-pressure chronic ulcer of other part of right foot with fat layer exposed; E11.51 Type 2 diabetes mellitus with diabetic peripheral angiopathy without gangrene; L84 Corns and callosities

== ENCOUNTER → 2017-03-10 | Outpatient (CLI) | payer MEDICARE, MEDICAID | END | disposition home or self-care (01) | LOC: ORTHO 01:33 → WOUNDCARE 01:33 → ORTHO 16:39 | DX: S92.254A Nondisplaced fracture of navicular [scaphoid] of right foot, initial encounter for closed fracture (principal) ==

== ENCOUNTER → 2017-03-15 | Outpatient (CLI) | payer MEDICARE, MEDICAID | END | disposition home or self-care (01) | LOC: MRI 11:00 | DX: S92.254A Nondisplaced fracture of navicular [scaphoid] of right foot, initial encounter for closed fracture (principal); I10 Essential (primary) hypertension; E11.621 Type 2 diabetes mellitus with foot ulcer; M19.071 Primary osteoarthritis, right ankle and foot; M67.471 Ganglion, right ankle and foot; X58.XXXA Exposure to other specified factors, initial encounter; Y93.89 Activity, other specified; Y92.89 Other specified places as the place of occurrence of the external cause; Y99.8 Other external cause status ==

== ENCOUNTER → 2017-03-25 | Outpatient (CLI) | payer MEDICARE, MEDICAID ==
[2017-03-25 13:34] LABS: ALKALINE PHOSPHATASE 190 U/L (45-117); BILIRUBIN, DIRECT < 0.1 mg/dL (0.0-0.2); BUN 16 mg/dl (7-24); CHLORIDE 98 mmol/L (98-107); CHOLESTEROL 179 mg/dL (<200); CREATININE 0.84 mg/dL (0.55-1.02); FREE T4 1.41 ng/dl (0.76-1.46); HDL CHOLESTEROL 29 mg/dl (40-60); LDL CHOLESTEROL 105 mg/dL (9-159); POTASSIUM 4.3 mmol/L (3.5-5.1); SGOT/AST 43 IU/L (3-35); SGPT/ALT 36 U/L (12-78); SODIUM 134 mmol/L (136-145); TOTAL PROTEIN 7.8 gm/dL (6.4-8.2); TRIGLYCERIDES 227 mg/dl (<150); VLDL CHOLESTEROL 45 mg/dL (6-40)
[2017-03-25 14:55] LABS: PTH INTACT 24.6 pg/mL (14.0-72.0); VITAMIN D, 25-HYDROXY 30.9 ng/mL (30-100)
== END | disposition home or self-care (01) ==
LOC: LAB 12:05
PROVIDERS: Internal Medicine
DX: E11.40 Type 2 diabetes mellitus with diabetic neuropathy, unspecified (principal); E55.9 Vitamin D deficiency, unspecified; E11.65 Type 2 diabetes mellitus with hyperglycemia; E03.9 Hypothyroidism, unspecified; E78.5 Hyperlipidemia, unspecified

== ENCOUNTER 2017-06-29 00:04 | Emergency (ER) | payer MEDICARE, MEDICAID ==
[~2017-06-29] VITALS: Ht 172.7 cm; Wt 113.4 kg
[2017-06-29 01:11] LABS: BASO # 0.1 10*3/uL (0.0-0.1); BASO % 0.5 % (0.0-1.0); EOS # 0.4 10*3/uL (0.0-0.4); EOS % 3.6 % (1.0-4.0); HEMATOCRIT 43.2 % (37.0-47.0); HEMOGLOBIN 13.5 g/dl (12.0-16.0); MEAN CORPUSCULAR HGB 24.7 pg (27.0-31.0); MEAN CORPUSCULAR HGB CONC 31.3 g/dl (33.0-37.0); MEAN PLATELET VOLUME 10.5 fl (9.6-12.3); MONO # 0.4 10*3/uL (0.1-1.0); MONO % 4.2 % (3.0-9.0); NEUT # 6.4 10*3/uL (2.3-7.9); NEUT % 62.1 % (47.0-73.0); PLATELET COUNT AUTOMATED 397 10*3/uL (130-400); RED BLOOD COUNT 5.47 10*6/uL (4.10-5.10); WHITE BLOOD COUNT 10.3 10*3/uL (4.8-10.8)
[2017-06-29 01:40] LABS: ALBUMIN 3.4 gm/dl (3.1-4.5); ALKALINE PHOSPHATASE 207 U/L (45-117); BUN 16 mg/dl (7-24); CHLORIDE 98 mmol/L (98-107); POTASSIUM 4.3 mmol/L (3.5-5.1); SGOT/AST 48 IU/L (3-35); SGPT/ALT 41 U/L (12-78); SODIUM 137 mmol/L (136-145); TOTAL PROTEIN 8.4 gm/dL (6.4-8.2)
[2017-06-29 01:44] LABS: TROPONIN I < 0.015 ng/ml (<0.045)
[2017-06-29] MEDS ORDERED: LEVAQUIN750 M1 PO (01:48)
== END 2017-06-29 02:31 | disposition home or self-care (01) ==
LOC: ED 00:04
PROVIDERS: Student in an Organized Health Care Education/Training Program
DX: F41.9 Anxiety disorder, unspecified (principal); J44.1 Chronic obstructive pulmonary disease with (acute) exacerbation; F17.200 Nicotine dependence, unspecified, uncomplicated; G89.29 Other chronic pain; K21.9 Gastro-esophageal reflux disease without esophagitis; E78.5 Hyperlipidemia, unspecified; I10 Essential (primary) hypertension; E11.65 Type 2 diabetes mellitus with hyperglycemia; E03.9 Hypothyroidism, unspecified; E66.9 Obesity, unspecified; Z98.890 Other specified postprocedural states; Z90.89 Acquired absence of other organs; Z95.5 Presence of coronary angioplasty implant and graft; Z79.899 Other long term (current) drug therapy; Z79.82 Long term (current) use of aspirin; Z79.4 Long term (current) use of insulin; Z91.041 Radiographic dye allergy status

== ENCOUNTER → 2017-09-10 | Outpatient (CLI) | payer MEDICARE, MEDICAID ==
[~2017-09-10] MED LIST changes: +LEVAQUIN750 M1 PO
== END | disposition home or self-care (01) ==
LOC: MRI 09-07 11:00
DX: M48.061 Spinal stenosis, lumbar region without neurogenic claudication (principal); M47.897 Other spondylosis, lumbosacral region

== ENCOUNTER → 2017-10-08 | Outpatient (CLI) | payer MEDICARE, MEDICAID | END | disposition home or self-care (01) | LOC: ORTHO 01:56 | DX: M19.041 Primary osteoarthritis, right hand (principal) ==

== ENCOUNTER → 2017-10-13 | Outpatient (CLI) | payer MEDICARE, MEDICAID ==
[2017-10-13 09:16] LABS: BILIRUBIN NEGATIVE (NEGATIVE); BLOOD NEGATIVE (NEGATIVE); CLARITY SL CLOUDY (CLEAR); COLOR YELLOW (YELLOW); GLUCOSE 3+ (NEGATIVE); KETONE NEGATIVE (NEGATIVE); LEUKO ESTERASE NEGATIVE (NEGATIVE); NITRITE NEGATIVE (NEGATIVE); UROBILINOGEN 0.2 E.U./dl (0.2-1.0)
[2017-10-13 09:17] LABS: BASO # 0.1 10*3/uL (0.0-0.1); BASO % 0.8 % (0.0-1.0); EOS # 0.3 10*3/uL (0.0-0.4); EOS % 2.6 % (1.0-4.0); HEMATOCRIT 46.9 % (37.0-47.0); LYMPH % 26.6 % (27.0-41.0); MEAN CELL VOLUME 80.7 fl (81.0-99.0); MEAN CORPUSCULAR HGB 24.1 pg (27.0-31.0); MEAN CORPUSCULAR HGB CONC 29.9 g/dl (33.0-37.0); MONO # 0.5 10*3/uL (0.1-1.0); MONO % 4.6 % (3.0-9.0); NEUT # 7.3 10*3/uL (2.3-7.9); PLATELET COUNT AUTOMATED 336 10*3/uL (130-400); RED BLOOD COUNT 5.81 10*6/uL (4.10-5.10); RED CELL DISTRI WIDTH 15.7 % (0-14.5); WHITE BLOOD COUNT 11.2 10*3/uL (4.8-10.8)
[2017-10-13 09:41] LABS: ALBUMIN 3.5 gm/dl (3.1-4.5); ALKALINE PHOSPHATASE 157 U/L (45-117); BUN 23 mg/dl (7-24); CHLORIDE 98 mmol/L (98-107); CPK 66 U/L (26-192); CREATININE 1.02 mg/dL (0.55-1.02); GAMMA GLUTAMYL TRANSPEPTIDASE 323 U/L (5-55); POTASSIUM 4.1 mmol/L (3.5-5.1); SGOT/AST 42 IU/L (3-35); SGPT/ALT 39 U/L (12-78); SODIUM 137 mmol/L (136-145); TOTAL PROTEIN 8.2 gm/dL (6.4-8.2)
[2017-10-13 09:43] LABS: ALBUMIN 3.5 gm/dl (3.1-4.5); BILIRUBIN, DIRECT 0.1 mg/dL (0.0-0.2); FREE T4 1.17 ng/dl (0.76-1.46); TOTAL PROTEIN 8.3 gm/dL (6.4-8.2)
[2017-10-13 09:52] LABS: THYROID STIM HORMONE (HS) 5.23 uIU/ml (0.358-4.75)
[2017-10-13 10:33] LABS: BACTERIA 2+; EPITHELIAL CELLS 15-20
[2017-10-13 10:36] LABS: WBC 21-30 wbc/hpf (0-5)
[2017-10-13 10:37] LABS: YEAST 1+
[2017-10-13 10:39] LABS: VITAMIN D, 25-HYDROXY 21.5 ng/mL (30-100)
== END | disposition home or self-care (01) ==
LOC: LAB 08:31
PROVIDERS: Family Medicine; Internal Medicine
DX: E03.9 Hypothyroidism, unspecified (principal); E11.40 Type 2 diabetes mellitus with diabetic neuropathy, unspecified; E11.65 Type 2 diabetes mellitus with hyperglycemia; E78.5 Hyperlipidemia, unspecified; E55.9 Vitamin D deficiency, unspecified; R30.9 Painful micturition, unspecified; R79.89 Other specified abnormal findings of blood chemistry; R53.83 Other fatigue

== ENCOUNTER → 2017-11-05 | Outpatient (CLI) | payer MEDICARE, MEDICAID | END | disposition home or self-care (01) | LOC: US 10-06 12:30 | DX: I73.9 Peripheral vascular disease, unspecified (principal) ==

== ENCOUNTER → 2017-12-14 | Outpatient (CLI) | payer MEDICARE, MEDICAID | END | disposition home or self-care (01) | LOC: WOUNDCARE 00:15 | DX: E11.621 Type 2 diabetes mellitus with foot ulcer (principal); L97.422 Non-pressure chronic ulcer of left heel and midfoot with fat layer exposed; E78.5 Hyperlipidemia, unspecified; I10 Essential (primary) hypertension; E07.9 Disorder of thyroid, unspecified; E11.69 Type 2 diabetes mellitus with other specified complication; M86.8X8 Other osteomyelitis, other site; E11.51 Type 2 diabetes mellitus with diabetic peripheral angiopathy without gangrene; M16.12 Unilateral primary osteoarthritis, left hip; F17.200 Nicotine dependence, unspecified, uncomplicated; Z86.73 Personal history of transient ischemic attack (TIA), and cerebral infarction without residual deficits ==

== ENCOUNTER → 2017-12-29 | Outpatient (CLI) | payer MEDICARE, MEDICAID | END | disposition home or self-care (01) | LOC: WOUNDCARE 04:24 | DX: E11.621 Type 2 diabetes mellitus with foot ulcer (principal); L97.422 Non-pressure chronic ulcer of left heel and midfoot with fat layer exposed; E11.69 Type 2 diabetes mellitus with other specified complication; M86.8X8 Other osteomyelitis, other site; E11.51 Type 2 diabetes mellitus with diabetic peripheral angiopathy without gangrene; E78.5 Hyperlipidemia, unspecified; I10 Essential (primary) hypertension; E07.9 Disorder of thyroid, unspecified; M16.12 Unilateral primary osteoarthritis, left hip; F17.200 Nicotine dependence, unspecified, uncomplicated; Z86.73 Personal history of transient ischemic attack (TIA), and cerebral infarction without residual deficits ==

== ENCOUNTER → 2018-01-05 | Outpatient (CLI) | payer MEDICARE, MEDICAID | END | disposition home or self-care (01) | LOC: WOUNDCARE 02:10 | DX: E11.621 Type 2 diabetes mellitus with foot ulcer (principal); L97.422 Non-pressure chronic ulcer of left heel and midfoot with fat layer exposed; E78.5 Hyperlipidemia, unspecified; E07.89 Other specified disorders of thyroid; E11.51 Type 2 diabetes mellitus with diabetic peripheral angiopathy without gangrene; E11.69 Type 2 diabetes mellitus with other specified complication; M86.9 Osteomyelitis, unspecified; M13.852 Other specified arthritis, left hip; I10 Essential (primary) hypertension; F17.200 Nicotine dependence, unspecified, uncomplicated; Z86.73 Personal history of transient ischemic attack (TIA), and cerebral infarction without residual deficits ==

== ENCOUNTER → 2018-01-12 | Outpatient (CLI) | payer MEDICARE, MEDICAID | END | disposition home or self-care (01) | LOC: WOUNDCARE 03:37 | DX: E11.621 Type 2 diabetes mellitus with foot ulcer (principal); L97.422 Non-pressure chronic ulcer of left heel and midfoot with fat layer exposed; L84 Corns and callosities; E78.5 Hyperlipidemia, unspecified; E07.9 Disorder of thyroid, unspecified; E11.69 Type 2 diabetes mellitus with other specified complication; M86.9 Osteomyelitis, unspecified; E11.51 Type 2 diabetes mellitus with diabetic peripheral angiopathy without gangrene; I10 Essential (primary) hypertension; M13.852 Other specified arthritis, left hip; F17.200 Nicotine dependence, unspecified, uncomplicated; Z86.73 Personal history of transient ischemic attack (TIA), and cerebral infarction without residual deficits ==

== ENCOUNTER → 2018-01-21 | Outpatient (CLI) | payer MEDICARE, MEDICAID | END | disposition home or self-care (01) | LOC: RAD 02:33 → LAB 02:33 → WOUNDCARE 02:33 | DX: L97.422 Non-pressure chronic ulcer of left heel and midfoot with fat layer exposed (principal); M79.9 Soft tissue disorder, unspecified; E11.621 Type 2 diabetes mellitus with foot ulcer ==

== ENCOUNTER → 2018-02-23 | Outpatient (CLI) | payer MEDICARE, MEDICAID ==
[2018-02-23 10:47] LABS: BILIRUBIN NEGATIVE (NEGATIVE); BLOOD NEGATIVE (NEGATIVE); CLARITY SL CLOUDY (CLEAR); COLOR YELLOW (YELLOW); GLUCOSE 3+ (NEGATIVE); KETONE NEGATIVE (NEGATIVE); LEUKO ESTERASE NEGATIVE (NEGATIVE); NITRITE NEGATIVE (NEGATIVE); UROBILINOGEN 0.2 E.U./dl (0.2-1.0)
[2018-02-23 11:18] LABS: ALBUMIN 3.3 gm/dl (3.1-4.5); ALKALINE PHOSPHATASE 164 U/L (45-117); BILIRUBIN, DIRECT < 0.1 mg/dL (0.0-0.2); BUN 17 mg/dl (7-24); CHLORIDE 100 mmol/L (98-107); CHOLESTEROL 121 mg/dL (<200); CREATININE 0.99 mg/dL (0.55-1.02); HDL CHOLESTEROL 29 mg/dl (40-60); LDL CHOLESTEROL 45 mg/dL (9-159); POTASSIUM 3.9 mmol/L (3.5-5.1); SGOT/AST 30 IU/L (3-35); SGPT/ALT 25 U/L (12-78); SODIUM 136 mmol/L (136-145); TOTAL PROTEIN 7.6 gm/dL (6.4-8.2); TRIGLYCERIDES 235 mg/dl (<150); VLDL CHOLESTEROL 47 mg/dL (6-40)
[2018-02-23 11:41] LABS: VITAMIN D, 25-HYDROXY 22.4 ng/mL (30-100)
== END | disposition home or self-care (01) ==
LOC: WOUNDCARE 02-18 10:52 → LAB 02:28 → WOUNDCARE 11:54
PROVIDERS: Internal Medicine
DX: E11.621 Type 2 diabetes mellitus with foot ulcer (principal); L97.422 Non-pressure chronic ulcer of left heel and midfoot with fat layer exposed; E78.5 Hyperlipidemia, unspecified; I10 Essential (primary) hypertension; E07.89 Other specified disorders of thyroid; E11.69 Type 2 diabetes mellitus with other specified complication; M86.8X8 Other osteomyelitis, other site; E11.51 Type 2 diabetes mellitus with diabetic peripheral angiopathy without gangrene; M13.852 Other specified arthritis, left hip; E55.9 Vitamin D deficiency, unspecified; F17.200 Nicotine dependence, unspecified, uncomplicated; Z86.73 Personal history of transient ischemic attack (TIA), and cerebral infarction without residual deficits

== ENCOUNTER → 2018-03-02 | Outpatient (CLI) | payer MEDICARE, MEDICAID | END | disposition home or self-care (01) | LOC: WOUNDCARE 04:17 | DX: E11.621 Type 2 diabetes mellitus with foot ulcer (principal); L97.422 Non-pressure chronic ulcer of left heel and midfoot with fat layer exposed; E11.69 Type 2 diabetes mellitus with other specified complication; M86.8X8 Other osteomyelitis, other site; E11.51 Type 2 diabetes mellitus with diabetic peripheral angiopathy without gangrene; E78.5 Hyperlipidemia, unspecified; I10 Essential (primary) hypertension; E07.89 Other specified disorders of thyroid; M13.852 Other specified arthritis, left hip; F17.200 Nicotine dependence, unspecified, uncomplicated; Z86.73 Personal history of transient ischemic attack (TIA), and cerebral infarction without residual deficits ==

== ENCOUNTER → 2018-03-09 | Outpatient (CLI) | payer MEDICARE, MEDICAID | END | disposition home or self-care (01) | LOC: WOUNDCARE 00:39 | DX: E11.621 Type 2 diabetes mellitus with foot ulcer (principal); L97.422 Non-pressure chronic ulcer of left heel and midfoot with fat layer exposed; E11.69 Type 2 diabetes mellitus with other specified complication; M86.8X8 Other osteomyelitis, other site; E11.51 Type 2 diabetes mellitus with diabetic peripheral angiopathy without gangrene; M13.852 Other specified arthritis, left hip; E78.5 Hyperlipidemia, unspecified; I10 Essential (primary) hypertension; E07.89 Other specified disorders of thyroid; F17.200 Nicotine dependence, unspecified, uncomplicated; Z86.73 Personal history of transient ischemic attack (TIA), and cerebral infarction without residual deficits ==

== ENCOUNTER → 2018-03-16 | Outpatient (CLI) | payer MEDICARE, MEDICAID | END | disposition home or self-care (01) | LOC: WOUNDCARE 04:56 | DX: E11.621 Type 2 diabetes mellitus with foot ulcer (principal); L97.422 Non-pressure chronic ulcer of left heel and midfoot with fat layer exposed; E11.69 Type 2 diabetes mellitus with other specified complication; M86.8X8 Other osteomyelitis, other site; E11.51 Type 2 diabetes mellitus with diabetic peripheral angiopathy without gangrene; E07.89 Other specified disorders of thyroid; E78.5 Hyperlipidemia, unspecified; I10 Essential (primary) hypertension; M13.852 Other specified arthritis, left hip; F17.200 Nicotine dependence, unspecified, uncomplicated; Z86.73 Personal history of transient ischemic attack (TIA), and cerebral infarction without residual deficits ==

== ENCOUNTER → 2018-03-23 | Outpatient (CLI) | payer MEDICARE, MEDICAID | END | disposition home or self-care (01) | LOC: WOUNDCARE 01:20 | DX: E11.621 Type 2 diabetes mellitus with foot ulcer (principal); L97.422 Non-pressure chronic ulcer of left heel and midfoot with fat layer exposed; E11.69 Type 2 diabetes mellitus with other specified complication; M86.8X8 Other osteomyelitis, other site; E78.5 Hyperlipidemia, unspecified; I10 Essential (primary) hypertension; E07.89 Other specified disorders of thyroid; E11.51 Type 2 diabetes mellitus with diabetic peripheral angiopathy without gangrene; M13.852 Other specified arthritis, left hip; F17.200 Nicotine dependence, unspecified, uncomplicated; Z86.73 Personal history of transient ischemic attack (TIA), and cerebral infarction without residual deficits ==

== ENCOUNTER → 2018-03-30 | Outpatient (CLI) | payer MEDICARE, MEDICAID | END | disposition home or self-care (01) | LOC: WOUNDCARE 01:29 | DX: E11.621 Type 2 diabetes mellitus with foot ulcer (principal); L97.422 Non-pressure chronic ulcer of left heel and midfoot with fat layer exposed; E11.69 Type 2 diabetes mellitus with other specified complication; M86.9 Osteomyelitis, unspecified; E11.51 Type 2 diabetes mellitus with diabetic peripheral angiopathy without gangrene; M13.852 Other specified arthritis, left hip; E78.5 Hyperlipidemia, unspecified; I10 Essential (primary) hypertension; E07.89 Other specified disorders of thyroid; F17.200 Nicotine dependence, unspecified, uncomplicated; Z86.73 Personal history of transient ischemic attack (TIA), and cerebral infarction without residual deficits ==

== ENCOUNTER → 2018-04-06 | Outpatient (CLI) | payer MEDICARE, OTHER | END | disposition home or self-care (01) | LOC: WOUNDCARE 10:23 | DX: E11.621 Type 2 diabetes mellitus with foot ulcer (principal); L97.422 Non-pressure chronic ulcer of left heel and midfoot with fat layer exposed; E78.5 Hyperlipidemia, unspecified; I10 Essential (primary) hypertension; E07.89 Other specified disorders of thyroid; E11.69 Type 2 diabetes mellitus with other specified complication; M86.9 Osteomyelitis, unspecified; E11.51 Type 2 diabetes mellitus with diabetic peripheral angiopathy without gangrene; M13.852 Other specified arthritis, left hip; Z86.73 Personal history of transient ischemic attack (TIA), and cerebral infarction without residual deficits; F17.200 Nicotine dependence, unspecified, uncomplicated ==

== ENCOUNTER → 2018-05-11 | Outpatient (CLI) | payer MEDICARE, OTHER | END | disposition home or self-care (01) | LOC: WOUNDCARE 03:01 | DX: E11.621 Type 2 diabetes mellitus with foot ulcer (principal); L97.422 Non-pressure chronic ulcer of left heel and midfoot with fat layer exposed; L03.032 Cellulitis of left toe; E11.69 Type 2 diabetes mellitus with other specified complication; M86.9 Osteomyelitis, unspecified; E11.51 Type 2 diabetes mellitus with diabetic peripheral angiopathy without gangrene; I10 Essential (primary) hypertension; E78.5 Hyperlipidemia, unspecified; E07.9 Disorder of thyroid, unspecified; M16.12 Unilateral primary osteoarthritis, left hip; F17.200 Nicotine dependence, unspecified, uncomplicated; Z86.73 Personal history of transient ischemic attack (TIA), and cerebral infarction without residual deficits ==

== ENCOUNTER → 2018-05-18 | Outpatient (CLI) | payer MEDICARE, OTHER | END | disposition home or self-care (01) | LOC: RAD 04:44 → LAB 04:44 → WOUNDCARE 04:44 | DX: M54.5 Low back pain (principal); M25.552 Pain in left hip; R10.30 Lower abdominal pain, unspecified; M19.90 Unspecified osteoarthritis, unspecified site ==

== ENCOUNTER 2018-05-28 21:56 | Emergency (ER) | payer MEDICARE, OTHER ==
[~2018-05-28] VITALS: Ht 167.6 cm; Wt 131.5 kg
== END 2018-05-28 23:31 | disposition home or self-care (01) ==
LOC: ED 21:56
DX: L53.8 Other specified erythematous conditions (principal); Z03.89 Encounter for observation for other suspected diseases and conditions ruled out; J44.9 Chronic obstructive pulmonary disease, unspecified; G89.29 Other chronic pain; E11.43 Type 2 diabetes mellitus with diabetic autonomic (poly)neuropathy; K31.84 Gastroparesis; K21.9 Gastro-esophageal reflux disease without esophagitis; E78.5 Hyperlipidemia, unspecified; E03.9 Hypothyroidism, unspecified; I10 Essential (primary) hypertension; E66.9 Obesity, unspecified; E11.51 Type 2 diabetes mellitus with diabetic peripheral angiopathy without gangrene; F17.200 Nicotine dependence, unspecified, uncomplicated; Z91.018 Allergy to other foods; Z91.048 Other nonmedicinal substance allergy status; Z79.2 Long term (current) use of antibiotics; Z79.899 Other long term (current) drug therapy; Z79.82 Long term (current) use of aspirin; Z79.4 Long term (current) use of insulin

== ENCOUNTER 2018-06-25 20:43 | Inpatient (IN) | payer MEDICARE, OTHER ==
[~2018-06-25] VITALS: Ht 167.6 cm; Wt 137.7 kg
--- NOTE | ~2018-06-25 | CON ---
[place], [place] REPORT OF CONSULTATION NAME: ESTHER STERN [facility] #: [id number] UNIT #: [id number] ROOM: 504 DOCTOR: HARRISON ARRIOLA MD BIRTHDATE: [birth year] DOS: 06/26/2018 PULMONARY CONSULTATION, EVALUATION AND MANAGEMENT CONSULTATION REQUESTED BY: Hospitalist service. REASON FOR CONSULTATION: For assessment of exacerbation of bronchial asthma. HISTORY OF PRESENT ILLNESS: This 58-year-old white female patient is known to me from the office, presented to the hospital as the patient reported symptoms of having increased shortness of breath occurring at home after the acute cold attack with symptoms noted gradually progressive. She has been seen by the primary care physician and has been prescribed Omnicef for the current medical management of the upper respiratory tract symptoms. The patient felt some improvement in symptoms. Later on, developed severe shortness of breath 24 hours prior to hospitalization. Shortness of breath reported walking a few feet on a leveled surface in the home. She is also reporting a cough, which has been noted nonproductive. Denies symptoms of chest pain or any hemoptysis. The patient denies symptoms of chest trauma. The wheezing was reported with the current symptoms. REVIEW OF SYSTEMS: CONSTITUTIONAL SYMPTOMS: Fatigue and tiredness reported. No symptoms of fever or chills. EYES: Denies any burning, redness, or tenderness. EAR, NOSE, THROAT SYMPTOMS: No sore throat, hoarseness, otalgia, postnasal drainage, or epistaxis. CARDIOVASCULAR SYSTEM: Denies any anginal pain, edema or pain of the lower extremities. GASTROINTESTINAL SYMPTOMS: Denies dysphagia, nausea, vomiting, diarrhea, abdominal pain, hematemesis, melena, or hematochezia. SKIN: Denies any abnormal lesions or rashes, but noted diabetic foot of the left side, which has been noted intermittently as well. GENITOURINARY SYMPTOMS: Denies dysuria, suprapubic pain, or hematuria. MUSCULOSKELETAL SYMPTOMS: Denies acute joint pain, redness, or tenderness. CENTRAL NERVOUS SYSTEM: Denies dizziness, headache, diplopia, or syncopal episodes. Remaining systems were reviewed, they were noted all negative. PAST MEDICAL HISTORY: Known as: 1. History of bronchial asthma, uncomplicated moderate to severe persistence. 2. General anxiety disorder. 3. Longstanding type 2 diabetes mellitus. 4. Diabetic foot on the left side. 5. Diabetic gastroparesis. 6. Chronic severe obesity. 7. Gastroesophageal reflux. 8. Intervertebral disk disease. 9. Osteoarthritis of the major joints. [place], [place] REPORT OF CONSULTATION NAME: ESTHER STERN UNIT #: [id number] ROOM: [facility] DOCTOR: HARRISON ARRIOLA MD BIRTHDATE: [birth year] 10. History of abdominal aortic aneurysm. 11. History of peripheral arterial disease with peripheral arterial intervention, further management. PAST SURGICAL HISTORY: Reported: 1. . 2. Peripheral angioplasty of the lower extremity for peripheral arterial disease. 3. Carotid endarterectomy. SOCIAL HISTORY: The patient lives at home. Denies history of alcohol use, illicit drug use. Tobacco use known, a long time about half a pack of cigarettes per day or greater. FAMILY HISTORY: Father from complication of colon cancer. Mother with a lung cancer. MEDICATIONS: At home were listed as use of Proventil HFA, BuSpar, Plavix, Farxiga, duloxetine, hydrochlorothiazide, Vistaril, Lantus, Humalog, levothyroxine, Reglan, Lopressor, fish oil, Effexor and Crestor. DRUG ALLERGIES: Reported as no known drug allergies. PHYSICAL EXAMINATION: GENERAL: This is a 58-year-old female patient currently sitting on the bed without any distress. Height of 5 feet 6 inches, weight of 303 pounds, BMI of 49. VITAL SIGNS: Normal temperature since admission, respiratory rate 20-16, heart rate of 79-81, blood pressure 147/81-136/58. Pulse oxygen saturation recorded on room air 95% saturation. HEENT: Head was atraumatic. Eyes nonicterus. NECK: Supple. CARDIOVASCULAR SYSTEM: S1, S2 is audible. LUNGS: The patient was noted with decreased breath sounds in the lungs bilaterally with mild to moderate expiratory wheezing. There were no crackles. ABDOMEN: Soft with severe chronic obesity. Bowel sounds present. No tenderness. EXTREMITIES: The patient with a left diabetic foot. There was no edema, clubbing or cyanosis. MUSCULOSKELETAL: The patient without any gross deformities. CENTRAL NERVOUS SYSTEM: The patient's cranial nerves 2-12 intact. LABORATORY DATA: Lactic acid yesterday noted normal. CBC of the patient; WBC count of 10.3, hemoglobin and hematocrit normal, platelet count normal, 3.3% eosinophils. PT and PTT for the patient were noted as normal yesterday. CMP that was done yesterday, normal BUN and creatinine and glucose 229. Troponin minimally elevated at 0.299. Alkaline phosphatase is mildly elevated at 190. The troponin was repeated again for the patient. The last troponin this morning was 0.191. CBC of this morning, the blood count 11.5, remaining CBC normal. BMP; normal BUN and creatinine and glucose 341. Chest x-ray 1-view images [place], [place] REPORT OF CONSULTATION NAME: ESTHER STERN UNIT #: [id number] ROOM: 504 DOCTOR: HARRISON ARRIOLA MD BIRTHDATE: [birth year] reviewed from the PACS images were noted without any acute pulmonary infiltration. CTA of the chest does show evidence of ascending aortic aneurysm of the thoracic aorta 4.4 cm in size. There was no pulmonary infiltration nodule visible with the review of the lung windows personally made. There was no evidence of any lymphadenopathy in the mediastinum. IMPRESSION: The patient will be currently admitted to the hospital noted with: 1. Acute exacerbation of bronchial asthma. 2. History of chronic nicotine dependence. The bronchial asthma would be considered eosinophilic type. 3. Chronic severe morbid obesity. 4. Asymptomatic thoracic aortic aneurysm without any rupture, dissection, or clotting. 5. The patient with chronic obesity was noted as well, which is morbid. 6. Diabetic foot. 7. Type 2 diabetes mellitus. 8. Steroid-induced hyperglycemia. PLAN OF MANAGEMENT: Continuation of bronchodilators, oxygen supplementation and Solu-Medrol. Management of hyperglycemia as well. The thoracic aortic aneurysm needs to be monitored for the patient, would not require any immediate intervention or care. Other therapy, plan and management will be recommended based on the progression of the illness. HARRISON WILL MD CM:CONSTR:REPORT OF CONSULTATION 1511 06/27/18 0105 interface
--- NOTE | ~2018-06-25 | PR ---
[place], [place] PROGRESS NOTE NAME: ESTHER STERN [facility] #: [id number] UNIT #: [id number] ROOM: 504 DOCTOR: NICOLETTE ZHANG MD,HARRISON BIRTHDATE: [birth year] DOS: 06/28/2018 SUBJECTIVE: The patient has been noted comfortable at this time, resting on the bed without any distress. The respiratory symptom, the patient has been improving. She has been assessed by the Cardiology Service for the current abnormal troponin for possibility of myocardial infarction and others. OBJECTIVE: VITAL SIGNS: For the patient which were recorded showed the temperature noted as normal. The respiratory rate of the patient was recorded as 18, heart rate 63, blood pressure 133/55, pulse oxygen saturation on room air was 94% saturation. HEENT: Chronic obesity. Head was atraumatic. Eyes nonicterus. NECK: Supple. CARDIOVASCULAR: S1, S2 audible. LUNGS: Without any wheeze or crackles this morning. ABDOMEN: Soft, nontender. EXTREMITIES: Without any acute edema. IMPRESSION: Resolving acute exacerbation of chronic obstructive pulmonary disease, history of nicotine dependence, abnormal troponin, rule out myocardial infarction, coronary artery disease. PLAN OF THERAPY: No changes from the pulmonary standpoint, the patient at this time. Discharge planning per primary care attending. After the clearance from the Cardiology Service, the pulmonary standpoint, the patient could be discharged home whenever desired. HARRISON WILL MD CM:PNTRANS [phone] HARRISON ZHANG MD 06/29/18 0009 interface
--- NOTE | ~2018-06-25 | PR ---
[place], [place] PROGRESS NOTE NAME: ESTHER STERN [facility] #: [id number] UNIT #: [id number] ROOM: 504 DOCTOR: KITTY HONG MD BIRTHDATE: [birth year] DOS: 06/29/2018 SUBJECTIVE: The patient was seen in the Cardiology Department prior to her stress test this afternoon, 06/29/2018. She states that she is breathing better. She no longer is dependent on the oxygen. She has been ambulatory and is anxious for discharge. She still does have an occasional cough. PHYSICAL EXAMINATION: VITAL SIGNS: On exam today, her pulse is 60 and regular, blood pressure is 150/58, but has been generally much better than that. GENERAL: She is afebrile. She weighs 137.7 kg and has a body mass index of 49. Her neck is supple. She has no jugular distention. Carotids are full. LUNGS: Respirations are unlabored. Her chest is clear to auscultation and percussion. HEART: Her heart has a regular rhythm with an S4 gallop. ABDOMEN: Benign. EXTREMITIES: Showed no edema. IMPRESSION: 1. Acute respiratory failure, which has improved since admission. The patient no longer is dependent on oxygen at this time. 2. Vascular disease in multiple beds including carotid vascular disease, status post right carotid endarterectomy, peripheral vascular disease, status post bilateral percutaneous interventions and nonhealing wounds on her feet. She has had an abnormal stress test in the past. 3. Cardiac catheterization at the [facility] 09/02/[address] Yony Sparks showed a 30-40% ostial stenosis of the left main. This was not felt to be significant based on an intracoronary ultrasound study that was subsequently completed. The LAD had no significant disease. The circumflex had minimal luminal irregularities. The right coronary artery was dominant with a proximal 20% stenosis and a mid vessel 20% stenosis. 4. Elevated troponin in the setting of acute respiratory failure. 5. Long-term cigarette abuse. 6. Type 2 diabetes mellitus with peripheral neuropathy. 7. Ascending thoracic aortic aneurysm measuring 4.3 cm in maximum diameter with minimal change compared to previous studies. PLAN: We will proceed with a pharmacologic stress test today. If that shows no evidence of ischemia and normal left ventricular function then the patient may be discharged to home for further followup as an outpatient. She certainly should discontinue cigarette smoking and we will work on continuing to monitor and manage her blood pressure. I thank the hospitalist physicians for asking our advice regarding her care. [place], [place] PROGRESS NOTE NAME: ESTHER STERN UNIT #: [id number] ROOM: [facility] DOCTOR: KITTY HONG MD BIRTHDATE: [birth year] KITTY HONG MD CM:PNTRANS [phone] KITTY HONG MD 06/30/18 0451 interface
--- NOTE | ~2018-06-25 | PR ---
[place], [place] PROGRESS NOTE NAME: ESTHER STERN [facility] #: [id number] UNIT #: [id number] ROOM: 504 DOCTOR: NICOLETTE ZHANG MD,HARRISON BIRTHDATE: [birth year] DOS: 06/29/2018 PULMONARY PROGRESS NOTE SUBJECTIVE: The patient has been noted comfortable at this time, resting on the bed. She was planned for stress testing to be done today, not noted n.p.o., stress test was canceled. Shortness of breath has been improving. There are no symptoms of coughing, wheezing or chest pain. OBJECTIVE: VITAL SIGNS: Which are recorded showed normal temperature, respiratory rate 16, heart rate of 58, blood pressure 118/74. Pulse oxygen saturation on 2 liters nasal cannula is 95% saturation. HEENT: Examination shows head was atraumatic. Eyes nonicterus. NECK: Supple. CARDIOVASCULAR: S1 and S2 audible. LUNGS: Noted without any wheezing or crackles. ABDOMEN: Soft, nontender, with chronic obesity. EXTREMITIES: No acute changes. IMPRESSION: 1. Resolving acute exacerbation of chronic obstructive pulmonary disease at this time. 2. Acute bronchitis. PLAN OF MANAGEMENT: Start the patient on oral prednisone 40 mg daily. Proceed with cardiac stress testing. No other changes in treatment otherwise will be necessary. The patient has been showing progressive and gradual improvement in the respiratory status. HARRISON WILL MD CM:PNTRANS [phone] HARRISON ZHANG MD 06/29/18 1556 interface
--- NOTE | ~2018-06-25 | PR ---
[place], [place] [id number] #: [id number] ROOM: 504 DOCTOR: NICOLETTE ZHANG MD,HARRISON BIRTHDATE: [birth year] DOS: 06/27/2018 PULMONARY PROGRESS NOTE SUBJECTIVE: The patient has been noted comfortable. She continues to show reduction in symptoms of coughing, wheezing, and shortness of breath. Denies symptoms of chest pain, fever or chills. Denies symptoms of hemoptysis, nausea, vomiting, diarrhea, or abdominal pain. OBJECTIVE: VITAL SIGNS: Which have been recorded showed normal temperature, respiratory rate 20, heart rate 58-65, blood pressure 129/48. The pulse oxygen saturation on 2.5 liters nasal cannula was 97% saturation. HEENT: Shows head was atraumatic, eyes nonicterus. NECK: Supple. CARDIOVASCULAR: S1 and S2 audible. LUNGS: Without any wheeze or crackles today. ABDOMEN: Soft, nontender. Bowel sounds present. EXTREMITIES: No acute edema. IMPRESSION: 1. The patient has been currently admitted to the hospital. The patient is noted with improvement continuously in the respiratory status from acute exacerbation of bronchial asthma, eosinophilic type. 2. Asymptomatic thoracic aortic aneurysm without any dissection. 3. Abnormal troponin as well, possibly acute myocardial injury per Cardiology assessment. PLAN OF TREATMENT: From pulmonary standpoint, no changes in pulmonary treatment is recommended. Discharge the patient from pulmonary standpoint could be considered. Follow the recommendation of Cardiology Service for further assessment for the current abnormal troponin per Dr. Deluca. HARRISON WILL MD CM:PNTRANS [id number] HARRISON ZHANG MD 06/27/18 0356 interface
--- NOTE | ~2018-06-25 | EKG ---
[place], [place] ELECTROCARDIOGRAM REPORT NAME: ESTHER STERN UNIT #: [id number] ROOM: 504 DOCTOR: DIETER DRAFT REPORT BIRTHDATE: [birth year] 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
--- NOTE | ~2018-06-25 | CON ---
[place], [place] REPORT OF CONSULTATION [id number] UNIT #: [id number] ROOM: 504 DOCTOR: KITTY HONG MD BIRTHDATE: [birth year] DOS: 06/26/2018 CARDIOLOGY CONSULTATION REASON FOR CONSULTATION: Dyspnea, elevation in cardiac troponin levels. HISTORY OF PRESENT ILLNESS: The patient is a 58-year-old woman who does have a history of widespread vascular disease with atherosclerotic heart disease and a thoracic aortic aneurysm. She has a long history of diabetes and cigarette abuse. She initially presented with epigastric pain in January 2015. A stress test showed a small area of anterior ischemia near the apex and she did have normal left ventricular systolic function, so she was treated medically and was placed on metoprolol. The drug was subsequently not started because of insurance issues. She was noted to have an abnormal CT scan of the chest demonstrating a 4.3 cm ascending thoracic aortic aneurysm and therefore metoprolol was restarted. When I last saw her in July 2015 she was clinically stable. She tells me that since then she has been followed by physicians at [facility]. She states that she has had another heart catheterization and has had multiple revascularization procedures in both legs. She had nonhealing wounds in her right foot, which are now closed, but she has a Charcot joint in her right ankle. She has a nonhealing wound on her left foot. She is attending wound clinic for that. She states that for the last week she has felt poorly. She has had a head cold for which she was placed on an antibiotic and Mucinex. She has noted that every time she takes the Mucinex she feels tight in her chest and cannot cough very well. She has also had some chills and an occasionally productive cough. Since she was developing increased chest tightness and dyspnea, she came in to the Emergency Room where she was noted to be hypoxemic. Her initial troponin level was mildly elevated and therefore she was admitted to the hospital and Cardiology was asked to assist in her care. Since she has been in the hospital, troponin levels have been mildly elevated at 0.299, 0.280 and 0.191. She has not had any further chest discomfort and states that the therapy she has received in the hospital have resulted in some improvement in her breathing. PAST MEDICAL HISTORY: Includes: 1. Type 2 diabetes mellitus of 10-15 years duration. 2. Hypothyroidism. 3. Asthma. 4. Cigarette abuse with ongoing cigarette use up until the time of this admission. 5. Peripheral vascular disease. The patient had a nonhealing ulcer on her right foot complicated by osteomyelitis and a Charcot joint. She has been revascularized on the right side and her skin has healed. She still has a nonhealing wound on her left foot. 6. Lower extremity arteriography and angioplasty of the right leg done at [facility] in the past. Most recently, she was evaluated by Dr. Delarosa at [facility] where a percutaneous intervention was repeated on her [place], [place] REPORT OF CONSULTATION NAME: ESTHER STERN UNIT #: [id number] ROOM: [facility] DOCTOR: KITTY HONG MD BIRTHDATE: [birth year] both legs. 7. Essential hypertension in the past while she was using drugs and alcohol. 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 8. Presentation to the hospital on 01/25/2015 for gastritis with blood in her stools. 9. CT angiogram of the chest demonstrated a small thoracic aneurysm measuring 4.3 cm in diameter 01/25/2015. Her most recent CT angiogram on 06/25/2018 showed that she had dilation of the pulmonary artery trunk up to 4.1 cm in diameter. There was no evidence for pulmonary emboli. The thoracic aorta was dilated at 4.4 cm, slightly larger than it had been 3 years previously. No acute airspace disease was seen. 10. Pharmacologic myocardial perfusion study 01/28/2015, small area of anterior ischemia near the apex. Overall, left ventricular function was preserved and the patient was treated medically. 11. Echocardiogram 01/26/2015, normal left ventricular size with moderate concentric left ventricular hypertrophy, ejection fraction 65%, stage 2 diastolic dysfunction, physiologic mitral and tricuspid insufficiencies with normal right ventricular systolic pressure, mildly dilated left atrium. 12. Catheterization in 2018 reportedly unremarkable, but records pending. MEDICATIONS PRIOR TO ADMISSION: Albuterol 2 puffs p.r.n., acetaminophen with oxycodone 1 tablet b.i.d., ascorbic acid 500 mg every other day, aspirin 325 mg daily, buspirone 15 mg b.i.d., clopidogrel 75 mg daily, Farxiga 10 mg daily, Lomotil t.i.d. p.r.n., hydrochlorothiazide 25 mg daily, hydroxyzine 25 mg t.i.d., levothyroxine 150 mg daily, metoclopramide 5 mg a.c., metoprolol 25 mg b.i.d., omega-3 fish oil 500 mg capsules 4 per day, omeprazole 40 mg b.i.d., Lyrica 75 mg b.i.d., rosuvastatin 5 mg at bedtime, Effexor 75 mg b.i.d. Trulicity 0.75 mg subcutaneously every Wednesday, Lantus insulin 130 units at bedtime and Humalog insulin 50 units t.i.d. by sliding scale with meals. ALLERGIES: THE PATIENT LISTS ALLERGIES TO RED FOOD COLOR AND TAPE. FAMILY HISTORY: Negative for early coronary artery disease. REVIEW OF SYSTEMS: The patient denies diplopia or loss of vision. She denies syncope. She denies palpitations. She has had some lightheadedness, but denies focal weakness or syncope. She denies nausea or vomiting. She has had feverishness, cough and dyspnea as noted above. She denies hemoptysis or hematemesis. She has had some chills. She denies any skin rashes. She denies change in bowel or bladder habits. Denies blood in her stools or urine. She denies any ankle swelling. The remainder of the review of systems is negative except as noted above. SOCIAL HISTORY: The patient continues to smoke about 1 pack of cigarettes a day. She does not consume alcohol or drugs at this point. PHYSICAL EXAMINATION: GENERAL: The patient is an obese white female who is awake, alert and oriented. VITAL SIGNS: Pulse is 79 and regular, blood pressure is 147/82. She is afebrile. She weighs 137.7 kg and has a body mass index of 49. [place], [place] REPORT OF CONSULTATION NAME: ESTHER STERN UNIT #: [id number] ROOM: [facility] DOCTOR: KITTY HONG MD BIRTHDATE: [birth year] HEENT: Normocephalic and atraumatic. Extraocular muscles are intact. Sclerae are clear. Pupils are round and reactive to light. The oral mucosa is moist. Tongue is midline. NECK: Supple. She has no jugular distention. Carotids are full. LUNGS: Respirations are unlabored at rest. She does have marked expiratory prolongation bilaterally with scattered wheezes bilaterally. She has no rales. She has no presacral edema or chest wall tenderness. CARDIOVASCULAR: Her heart has a regular rhythm. She has a fourth heart sound, but no third heart sound. The PMI could not be felt. She has no precordial heave, lift or thrill. ABDOMEN: Obese, but otherwise benign, without masses, organomegaly or bruits. EXTREMITIES: Showed no edema. Peripheral pulses were absent in the left foot and diminished in the right, although she does have a fairly full dorsalis pedis pulse on the right foot. I reviewed her electrocardiograms, which showed sinus rhythm with nonspecific ST and T-wave changes. There were no acute ST elevations. Hemoglobin is 13.6, hematocrit 46.5. There are 11,000 white cells. Sodium is 137, potassium 4.3, chloride 98, CO2 of 31, BUN 21, creatinine 0.97. Troponin levels are mildly elevated as noted above but falling. IMPRESSIONS: 1. Acute respiratory distress with evidence for respiratory failure. This has improved with emergent treatment in the Emergency Department. 2. Vascular disease in multiple vascular beds including carotid vascular disease, status post right carotid endarterectomy, peripheral vascular disease status post bilateral percutaneous interventions, nonhealing wounds in the feet and an abnormal stress test in the past. The patient had a catheterization within the last year and that will be requested. 3. Elevated troponin in the setting of acute respiratory distress and hypoxemia. 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 5. Type 2 diabetes mellitus with peripheral neuropathy. 6. Ascending thoracic aorta aneurysm measuring 1.3 cm in maximum diameter with minimal change compared to previous studies. PLAN: For now, we will observe the patient's serial troponin levels and request the results of her catheterization and recent stress testing. We will try to keep her pain free. If her troponin levels do suggest a recent myocardial injury, we may want to request a repeat stress test again depending on the results of her recent stress test and catheterization. She should stay on a beta sammie. We will keep her on beta-blockers for her atherosclerotic disease and thoracic aneurysm. She should stay on dual antiplatelet therapies as well as diabetes control medications. We will follow her with her other physicians. [place], [place] REPORT OF CONSULTATION NAME: ESTHER STERN UNIT #: [id number] ROOM: 504 DOCTOR: KITTY HONG MD BIRTHDATE: [birth year] KITTY HONG MD CM:CONSTR:REPORT OF CONSULTATION 1554 06/27/18 0823 interface
--- NOTE | ~2018-06-25 | EKG ---
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
--- NOTE | ~2018-06-25 | EKG ---
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
--- NOTE | ~2018-06-25 | PR ---
[place], [place] PROGRESS NOTE NAME: ESTHER STERN [facility] #: [id number] UNIT #: [id number] ROOM: 504 DOCTOR: KITTY HONG MD BIRTHDATE: [birth year] DOS: 06/27/2018 SUBJECTIVE: The patient was seen at her bedside today 06/27/2018 for followup of chest discomfort and elevated troponin in the setting of acute respiratory failure. The patient feels well today, although when she was off her oxygen for a short time earlier today, she did become very breathless and states that her pulse oximetry was in the 80s. She is now back to her baseline with oxygen in place. She denies any further chest pain. PHYSICAL EXAMINATION: VITAL SIGNS: Today, her pulse is 65 and regular, blood pressure is 126/42. She is afebrile. NECK: Supple. She has no jugular distention. Carotids are full. There are no bruits. She has no neck or supraclavicular masses and no thyromegaly. LUNGS: Respirations are unlabored at rest. She does have marked expiratory prolongation bilaterally with scattered wheezes. She has no chest wall tenderness and no presacral edema. HEART: Irregular rhythm with an S4 gallop. I heard no S3 or murmur. ABDOMEN: Obese, but otherwise benign. EXTREMITIES: Showed no pedal edema. LABORATORY DATA: Troponin levels were further elevated today at 0.470 despite the fact that she has no further chest pain. Renal functions were normal with a sodium of 136, potassium of 4.9, chloride 96, CO2 of 31, BUN 27, and creatinine 0.98. IMPRESSION: 1. Acute respiratory distress with evidence for respiratory failure. This has improved since admission, but is still somewhat symptomatic. 2. Vascular disease in multiple beds including carotid vascular disease, status post right carotid endarterectomy, peripheral vascular disease, status post bilateral percutaneous interventions, nonhealing wounds on her feet and an abnormal stress test in the past. 3. Cardiac catheterization done at the [facility] 09/02/[address] Yony Sparks showed 30-40% ostial angiographic stenosis of the left main. This was not felt to be significant on intracoronary ultrasound. The LAD had no significant disease. The circumflex had minimal luminal irregularities. The right coronary artery was dominant with a proximal 20% stenosis and a mid 20% stenosis. 4. Elevated troponin in the setting of acute respiratory distress and hypoxemia. 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 6. Type 2 diabetes mellitus with peripheral neuropathy. 7. Ascending thoracic aortic aneurysm measuring 4.3 cm in maximum diameter with minimal change compared to previous studies. PLAN: I am concerned about her troponin elevation even though she has no further pain and her EKG shows no acute changes. It has been 2 years since her last catheterization and she could have had progressive disease in her coronary [place], [place] PROGRESS NOTE [id number] #: [id number] ROOM: [facility] DOCTOR: KITTY HONG MD BIRTHDATE: [birth year] arteries at that time. I therefore did suggest to the patient that she undergo pharmacologic stress testing in the hospital. If that shows a large area of myocardium at risk, then another catheterization would be the next step. We will keep the patient in the hospital to have this accomplished. She is continuing to undergo respiratory therapies in any case. I thank the hospitalist physicians for asking our advice regarding her care. KITTY HONG MD CM:PNTRANS [id number] KITTY HONG MD 06/27/18 1128 interface
[~2018-06-25 20:43] MED LIST changes: +LANTUS SOL100 UNIT/1 SC; -LEVOTHYROXIN0.125 MG PO; +LEVOTHYROXINE150 MCG PO; -PERCOCET 325 MG1 TA5 PO; +Percocet 325 MG1 TAB PO
[2018-06-25 20:45] VITALS: BP 145/80
[2018-06-25 21:14] LABS: BASO # 0.1 10*3/uL (0.0-0.1); BASO % 0.6 % (0.0-1.0); EOS # 0.3 10*3/uL (0.0-0.4); EOS % 3.3 % (1.0-4.0); HEMATOCRIT 45.8 % (37.0-47.0); HEMOGLOBIN 13.6 g/dl (12.0-16.0); LYMPH # 2.6 10*3/uL (1.3-4.4); LYMPH % 25.2 % (27.0-41.0); MEAN CELL VOLUME 84.2 fl (81.0-99.0); MEAN CORPUSCULAR HGB CONC 29.7 g/dl (33.0-37.0); MEAN PLATELET VOLUME 9.6 fl (9.6-12.3); MONO # 0.4 10*3/uL (0.1-1.0); MONO % 4.3 % (3.0-9.0); NEUT # 6.8 10*3/uL (2.3-7.9); PLATELET COUNT AUTOMATED 292 10*3/uL (130-400); RED BLOOD COUNT 5.44 10*6/uL (4.10-5.10); RED CELL DISTRI WIDTH 17.2 % (0-14.5); WHITE BLOOD COUNT 10.3 10*3/uL (4.8-10.8)
[2018-06-25 21:24] LABS: ACT PARTIAL THROMBO TIME 23.4 SECONDS (20.8-31.5)
[2018-06-25 21:35] LABS: ALBUMIN 3.2 gm/dl (3.1-4.5); ALKALINE PHOSPHATASE 190 U/L (45-117); BUN 16 mg/dl (7-24); CHLORIDE 103 mmol/L (98-107); CREATININE 0.99 mg/dL (0.55-1.02); POTASSIUM 4.2 mmol/L (3.5-5.1); SGOT/AST 24 IU/L (3-35); SGPT/ALT 24 U/L (12-78); SODIUM 140 mmol/L (136-145); TOTAL PROTEIN 7.8 gm/dL (6.4-8.2)
[2018-06-25 21:39] LABS: TROPONIN I 0.299 ng/ml (<0.045)
[2018-06-25 22:10] VITALS: BP 142/77
[2018-06-26] VITALS (7 sets, daily range): BP systolic 125–154; BP diastolic 50–82
--- NOTE | 2018-06-26 00:11 | NUR ---
CRITICAL TROPONIN 0.280, DR SY AWARE
--- NOTE | 2018-06-26 01:42 | NUR ---
A 58, admitted to 5E, under the services of KIRILL Hutchison DO with a diagnosis of ASTHMA, ELEVATED TROPONIN, RESPIRATORY FAILURE, CHEST PAIN. Chief complaint is SHORTNESS OF BREATH. Patient arrived via stretcher from ER. Monitor applied. Initial assessment completed. Vital signs taken and recorded. KIRILL HUTCHISON DO notified of admission to the unit. Orders received. See assessment for past medical history, medications and allergies. Patient and/or family oriented to unit. [address] visitation policy reviewed. Clothing/patient valuable form completed. BELKIS MOREAU
[2018-06-26] MEDS ORDERED: FARXIGA10 M1 PO (01:53)
[2018-06-26] MEDS ORDERED: TRULICITY0.75 MG/0. SC (01:54)
[2018-06-26] MEDS ORDERED: BUSPAR15 MG PO (01:54)
[2018-06-26] MEDS ORDERED: VITAMIN C500 M8 PO (01:55)
--- NOTE | 2018-06-26 02:00 | NUR ---
DR. LAGUNA NOTIFIED OF NEED FOR WOUND CARE ORDERS.
--- NOTE | 2018-06-26 03:00 | NUR ---
DR. CONCEPCION NOTIFIED OF TROPONIN RESULT.
--- NOTE | 2018-06-26 03:23 | NUR ---
MESSAGE LEFT WITH ANSWERING SERVICE FOR CONSULT WITH DR. JI.
[2018-06-26 06:39] LABS: HEMATOCRIT 46.5 % (37.0-47.0); HEMOGLOBIN 13.6 g/dl (12.0-16.0); MEAN CELL VOLUME 83.8 fl (81.0-99.0); MEAN CORPUSCULAR HGB 24.5 pg (27.0-31.0); MEAN CORPUSCULAR HGB CONC 29.2 g/dl (33.0-37.0); PLATELET COUNT AUTOMATED 280 10*3/uL (130-400); RED BLOOD COUNT 5.55 10*6/uL (4.10-5.10); RED CELL DISTRI WIDTH 17.2 % (0-14.5)
[2018-06-26 07:02] LABS: BASOPHILS 1 % (0-1); MICROCYTOSIS SLIGHT; PLATELET SUFFICIENCY NORMAL (NORMAL); TOTAL CELLS COUNTED 100 #CELLS
[2018-06-26 07:24] LABS: BUN 21 mg/dl (7-24); CHLORIDE 98 mmol/L (98-107); CREATININE 0.97 mg/dL (0.55-1.02); PHOSPHOROUS 3.2 mg/dL (2.5-4.9); POTASSIUM 4.3 mmol/L (3.5-5.1); SODIUM 137 mmol/L (136-145)
--- NOTE | 2018-06-26 08:00 | NUR ---
RESTING IN BED WITH NO ACUTE DISTRESS NOTED. RESPIRATIONS EASY. LUNGS DIMINISHED WITH POOR AIR EXCHANGE. PULSE OX 93% 2.5L. OCCASIONAL COUGH, PRODUCTIVE. OFFERED AND EDUCATED REGARDING TEDS, DECLINED. DRESSING INTACT TO LEFT HEEL. CALL LIGHT WITHIN REACH. NO VOICED COMPLAINTS
[2018-06-26] MEDS ORDERED: LYRICA75 M1 PO (08:27)
[2018-06-26] MEDS ORDERED: OMEPRAZOLE40 MG PO (08:28)
[2018-06-26] MEDS ORDERED: ROSUVASTATIN CAL5 MG PO (08:29)
--- NOTE | 2018-06-26 09:45 | NUR ---
24 HR chart check completed.
--- NOTE | 2018-06-26 10:10 | NUR ---
DR BALDWIN AND DR LANTIGUA PRESENT ON FLOOR TO ASSESS PATIENT AND DISCUSS PLAN OF CARE. INFORMED OF HOME MEDS REVIEWED AND NEEDING TO BE ORDERED
--- NOTE | 2018-06-26 11:15 | NUR ---
C/O HEADACHE RATING A 5, MEDICATED WITH NORCO PER PRN ORDER. CALL LIGHT WITHIN REACH. WILL MONITOR FOR EFFECTIVENESS
--- NOTE | 2018-06-26 12:20 | NUR ---
PATIENT'S SON CALLED IN. VERBALLY ABUSIVE AND CURSING AT STAFF, THREATENING TO COME TO HOSPITAL AND [place] EVERYONE. CALL TRANSFERRED TO NURSING OFFICE
--- NOTE | 2018-06-26 13:06 | NUR ---
CONTINUES TO C/O HEADACHE, STATING EARLIER NORCO OF LITTLE EFFECTIVENESS. MEDICATED WITH PERCOCET PER PRN ORDER. CALL LIGHT WITHIN REACH. WILL MONITOR FOR EFFECTIVENESS
--- NOTE | 2018-06-26 13:30 | NUR ---
DR WILL HERE TO SEE PATIENT AND DISCUSS PLAN OF CARE
--- NOTE | 2018-06-26 14:00 | NUR ---
STATES RELIEF FROM EARLIER MEDS. CALL LIGHT WITHIN REACH. NO FURTHER VOICED COMPLAINTS
--- NOTE | 2018-06-26 15:15 | NUR ---
DR HONG HERE TO SEE PATIENT AND DISCUSS PLAN OF CARE
--- NOTE | 2018-06-26 18:00 | NUR ---
SITTING AT BEDSIDE. RESPIRATIONS EASY. O2 IN USE. DRESSING MAINTAINED TO LEFT HEEL. CALL LIGHT WITHIN REACH. NO VOICED COMPLAINTS
--- NOTE | 2018-06-26 19:30 | NUR ---
MEDICAL RELEASE OBTAINED AND SENT PER DR HONG REQUEST. PER PATIENT, SHE GOES TO DR SCOTT BERTRAND, REQUEST FOR INFO SENT TO DR CHAVEZ OFFICE
--- NOTE | 2018-06-26 20:00 | NUR ---
24 HR chart check completed.
--- NOTE | 2018-06-26 21:18 | NUR ---
Scheduled Lyrica given.
--- NOTE | 2018-06-26 22:00 | NUR ---
Denies pain. Lyrica effective.
[2018-06-27] VITALS: BP 126/42
[2018-06-27 06:16] LABS: BASO % 0.1 % (0.0-1.0); EOS % 0.1 % (1.0-4.0); HEMATOCRIT 41.5 % (37.0-47.0); HEMOGLOBIN 12.2 g/dl (12.0-16.0); LYMPH # 1.2 10*3/uL (1.3-4.4); LYMPH % 8.5 % (27.0-41.0); MEAN CELL VOLUME 83.7 fl (81.0-99.0); MEAN CORPUSCULAR HGB 24.6 pg (27.0-31.0); MEAN CORPUSCULAR HGB CONC 29.4 g/dl (33.0-37.0); MONO # 0.3 10*3/uL (0.1-1.0); MONO % 2.2 % (3.0-9.0); NEUT # 12.7 10*3/uL (2.3-7.9); NEUT % 87.6 % (47.0-73.0); PLATELET COUNT AUTOMATED 283 10*3/uL (130-400); RED BLOOD COUNT 4.96 10*6/uL (4.10-5.10); RED CELL DISTRI WIDTH 16.7 % (0-14.5); WHITE BLOOD COUNT 14.5 10*3/uL (4.8-10.8)
[2018-06-27 06:21] LABS: BUN 27 mg/dl (7-24); CHLORIDE 96 mmol/L (98-107); CREATININE 0.98 mg/dL (0.55-1.02); POTASSIUM 4.9 mmol/L (3.5-5.1); SODIUM 136 mmol/L (136-145)
--- NOTE | 2018-06-27 06:50 | NUR ---
Hep Lock discontinued. ZITHROMAX INFILTRATED RIGHT ARM. Site asymptomatic. Pressure applied. Sterile dressing applied. BELKIS MOREAU
--- NOTE | 2018-06-27 07:00 | NUR ---
DR. HONG NOTIFIED OF POSITIVE TROPONIN.
--- NOTE | 2018-06-27 09:07 | NUR ---
ESTHER STERN [id number] Please refer to the physician's history and physical for past medical history, comorbid conditions, and allergies. Diagnosis: ASTHMA EXACERBATION, RESP FAILURE,ELEVATED TROPONI Humberto Score: 18,LOW OR NO RISK WOUND DESCRIPTIONS: Location of the wound: left heel Type of wound: stage 2 Thickness: Partial Size: 0.1cm x 0.2cm x 0.1cm Tunneling: none Undermining: none Sinus Tract: none Presence of Exudate: none Amount: None Color: Red Odor: None Periwound Skin Appearance: Normal Wound edges: approximated Pain (associated with wound): none at time of assessment How does patient state this happened? pt stated she follows in the wound care center and wants to follow up there when she is discharged. Surface the patient is resting on: Position Pro SKIN PREVENTION RECOMMENDATION: 1. Pressure redistribution support surface as appropriate 2. Elevate heels 3. Remove boots/TEDS every shift and reapply 4. Head of bed 30 degrees as tolerated 5. Assess nutrition and hydration 6. Manage moisture 7. Avoid the use of containment devices while in bed 8. Use absorptive products on surfaces limit layers of linens on bed 9. Turn and reposition every 1-2 hours in bed and every 1 hour in chair as tolerated 10. Weight shifts every 15 minutes while up in chair 11. Offloading with pillows or device to keep heels elevated off bed 12. Monitor skin at least every shift 13. Inspect under medical devices twice a day WOUND TREATMENT RECOMMENDATIONS: Heel raiser pro boots while in bed. Clarify Stage 2 guidelines: Cleanse left heel with nss apply sureprep around the wound hydrogel to wound bed and cover with optifoam gentle. Follow up appointment with Joy KEVIN on 07/06/18 at 2:30 pm in the wound care center located on the first floor of the hospital.
--- NOTE | 2018-06-27 11:24 | NUR ---
Dr. Castillo notified of wound care recommendations.
[2018-06-27 12:00] VITALS: BP 129/48
--- NOTE | 2018-06-27 13:55 | NUR ---
Dividend Clerk in to talk to patient. Patient states lives at HOME with ALONE. There are NO steps in the home. Physician: SCOTT [facility]: [facility] Patient's level of ADLs: MODERATE ASSIST Patient has working utilities: YES DME: [facility] Follow-up physician's appointment after d/c: WILL BE MADE BY HOSPITALIST NURSE DIRECTOR ON DISCHARGE Does patient want to access PORTAL?: NO Discharge plan PT STATES SHE LIVES AT HOME ALONE. STATES SHE HAS AN AID THROUGH [facility] WHICH IS ALSO HER DAUGHTER. USES A ROLLATOR AND HAS A LIFE ALERT [place]TON AT HOME. NO OTHER NEEDS AT IS TIME. WILL CONTINUE TO FOLLOW.. FABIÁN RANKIN
--- NOTE | 2018-06-27 15:06 | NUR ---
PATIENT SITTING UP IN BED WATCHING TV. DENIES ANY NEEDS OR COMPLAINTS. BED IS IN LOWEST POSITION WITH WHEELS LOCKED. CALL LIGHT IS WITHIN REACH. ENCOURAGED TO USE CALL LIGHT FOR NEEDS. WILL CONTINUE TO MONITOR.
[2018-06-27 16:00] VITALS: BP 156/53
--- NOTE | 2018-06-27 17:19 | NUR ---
SPOKE WITH DR ALEXIS FOR PATIENT REQUEST OF IMMODIUM. PER PATIENT TAKES IMMODIUM AT HOME FOR EPISODES OF DIARRHEA D/T HISTORY OF GASTROPARESIS. DR ALEXIS STATED THAT HE WOULD TAKE A LOOK AT PATIENT CHART AND PLACE ORDERS.
[2018-06-27 18:00] VITALS: BP 136/57
--- NOTE | 2018-06-27 23:37 | NUR ---
SPOKE WITH DR HOLLINS REGARDING PATIENTS CONTINUED EPISODES OF DIARRHEA. PATIENT REQUESTED ANOTHER DOSE OF IMMODIUM. PER DR HOLLINS HE WILL PLACE ORDERS.
[2018-06-28] VITALS: BP 140/68
--- NOTE | 2018-06-28 00:52 | NUR ---
PATIENT IS RESTING IN BED AT THIS TIME WITH EYES CLOSED. RESPIRATIONS ARE EASY AND REGULAR. NO DISTRESS IS NOTED. CALL LIGHT IS WITHIN REACH. WILL CONTINUE TO MONITOR.
[2018-06-28 07:06] LABS: BUN 29 mg/dl (7-24); CHLORIDE 99 mmol/L (98-107); CREATININE 0.86 mg/dL (0.55-1.02); SODIUM 135 mmol/L (136-145)
[2018-06-28 08:10] VITALS: BP 122/56
--- NOTE | 2018-06-28 08:40 | NUR ---
PT SITTING UP IN BED. RESP-EASY AND REGULAR. SPOKE WITH [facility] THEY WON'T DO STRESS UNTIL 1. SO NPO FOR 4 HOURS BEFORE. PT ORDERED LIGHT BREAKFAST. C/O LOWER BACK PAIN AND LEFT HIP, RATES PAIN 6 ON PAIN SCALE 0-10. MEDICATED WITH PERCOCET PO PER PRN ORDER, SEE EMAR. CALL LIGHT IN REACH. SEE SHIFT ASSESSMENT.
--- NOTE | 2018-06-28 09:00 | NUR ---
case management visits with patient, patient will be going home when able and denies any home needs
--- NOTE | 2018-06-28 09:20 | NUR ---
RESTING IN BED. STATES PAIN MEDICATION EFFECTIVE. NO NEW C/O AT THIS TIME. CALL LIGHT IN REACH.
--- NOTE | 2018-06-28 10:45 | NUR ---
PT OFF THE FLOOR FOR STRESS TEST.
--- NOTE | 2018-06-28 11:24 | NUR ---
BRINGING PT BACK SHE HAD CAFFEINE PER PT.
[2018-06-28 12:00] VITALS: BP 133/55
[2018-06-28 16:00] VITALS: BP 129/53
--- NOTE | 2018-06-28 16:30 | NUR ---
SLEEPING IN BED, AWAKENS EASILY. BSG-217, PT WANTS TO WAIT UNTIL ORDERS DINNER FOR COVERAGE. NO C/O AT THIS TIME. CALL LIGHT IN REACH. SEE SHIFT ASSESSMETN.
[2018-06-28 20:00] VITALS: BP 112/45
--- NOTE | 2018-06-28 22:07 | NUR ---
PATIENT C/O BACK PAIN RATES 01/28. PATIENT MEDICATED WITH PRN PERCOCET. WILL CHECK EFFECTIVENESS. PATIENT HAS NO OTHER COMPLAINTS AT THIS TIME. CALL LIGHT WITHIN REACH. WILL CONTINUE TO MONITOR.
[2018-06-29] VITALS: BP 129/45
--- NOTE | 2018-06-29 00:20 | NUR ---
PATIENT 91% ON RA. REFUSING TO WEAR OXYGEN. DENIES SOB. OXYGEN TUBING SET UP IN ROOM. WILL CONTINUE TO MONITOR.
--- NOTE | 2018-06-29 07:05 | NUR ---
PATIENT CONSUMED LIGHT BREAKFAST WITH NO CAFFIENE PER ORDER J LUIS DAVIES
[2018-06-29 07:07] LABS: BASO % 0.1 % (0.0-1.0); HEMATOCRIT 43.7 % (37.0-47.0); HEMOGLOBIN 13.1 g/dl (12.0-16.0); LYMPH # 0.9 10*3/uL (1.3-4.4); LYMPH % 12.4 % (27.0-41.0); MEAN CELL VOLUME 82.6 fl (81.0-99.0); MEAN CORPUSCULAR HGB 24.8 pg (27.0-31.0); MEAN PLATELET VOLUME 10.2 fl (9.6-12.3); MONO # 0.3 10*3/uL (0.1-1.0); MONO % 4.3 % (3.0-9.0); NEUT # 6.1 10*3/uL (2.3-7.9); NEUT % 82.5 % (47.0-73.0); PLATELET COUNT AUTOMATED 252 10*3/uL (130-400); RED BLOOD COUNT 5.29 10*6/uL (4.10-5.10); RED CELL DISTRI WIDTH 15.9 % (0-14.5); WHITE BLOOD COUNT 7.4 10*3/uL (4.8-10.8)
[2018-06-29 07:32] LABS: BUN 23 mg/dl (7-24); CHLORIDE 100 mmol/L (98-107); CREATININE 0.83 mg/dL (0.55-1.02); POTASSIUM 4.4 mmol/L (3.5-5.1); SODIUM 137 mmol/L (136-145)
--- NOTE | 2018-06-29 07:43 | NUR ---
VITAL SIGNS STABLE, A&O X3, JEM, EQUAL PMO CONSULTANT BILATERAL, HEART SOUNDS NORMAL, LUNG SOUNDS CLEAR BILATERALLY UPON AUSCLTATION, PEDAL PULSES PRESENT AND EQUAL BILATERALLY, CAPILLARY REFILL <3 SECONDS, ACTIVE BS X4 QUADRANTS, ABDOMIN SOFT NON TENDER,NON DISTENDED, SKIN TURGOR NON TENTING, NO EDEMA NOTED, OPEN WOUND ON LEFT HEAL NO DRAINAGE NOTED, PATIENT DENIES PAIN AT THIS TIME. J LUIS GOODMAN SPALLYSSACC
[2018-06-29 08:00] VITALS: BP 118/74
--- NOTE | 2018-06-29 09:06 | NUR ---
DRESSING CHANGED TO LEFT HEAL WUOND, MEASURES 0.1CM X 0.2CM X 0.1CM WITH APPROXIMATED EDGES PER ORDER J LUIS GOODMAN SPNRCC
--- NOTE | 2018-06-29 09:50 | NUR ---
INFORMED CONSENT OBTAINED FOR A LEXISCAN STRESS TEST WITH DR. HONG. RESTING HT RT 59, SINUS BRADYCARDIA WITH A POX OF 99% VIA RA. BREATH SOUNDS CLEAR JULIO. COMPLETED ONE MINUTE OF A LEXISCAN PROTOCOL RECEIVING LEXISCAN 0.4 MG OVER 10 SECONDS. DEVELOPED BREATHLESSNESS AND SOB THAT WAS RELIEVED IN RECOVERY. HAD A PEAK HT RT OF 76, WITH A BP OF 100/46 LAST RECOVERY HT RT OF 65, WITH A BP OF 110/50. AWAITING NUCLEAR IMAGING IN STABLE CONDITION.
--- NOTE | 2018-06-29 11:10 | NUR ---
LIST OF HOME HEALTH ANGENCIES PROVIDED TO PT AND SHE CHOSE [facility]. WILL FAX REFERRAL.
[2018-06-29 12:00] VITALS: BP 150/58
--- NOTE | 2018-06-29 12:53 | NUR ---
REFERRAL SENT TO [facility].
--- NOTE | 2018-06-29 13:00 | NUR ---
PT OFF THE FLOOR FOR STRESS TEST.
--- NOTE | 2018-06-29 13:21 | NUR ---
PATIENT STABLE TRANSPORTED TO [facility] VIA WHEELCHAIR J LUIS GOODMAN SPNRCC
[2018-06-29 16:00] VITALS: BP 125/63
--- NOTE | 2018-06-29 16:05 | NUR ---
PT C/O LOWER BACK AND LEFT HIP PAIN, RATES PAIN 7 ON PAIN SCALE 0-10. MEDICATED WITH PERCOCET PO PER PRN ORDER, SEE EMAR. CALL LIGHT IN REACH. BSG-109, SEE EMAR.
--- NOTE | 2018-06-29 17:00 | NUR ---
STATES PAIN MEDICATION HELPED. CALL LIGHT IN REACH.
--- NOTE | 2018-06-29 18:00 | NUR ---
TOLERATED ROUTINE MED. PT AWARE OF TRANSFER IN AM FOR STRESS TEST. PT AWARE HAS TO BE THERE AT [facility] AT 0830. WE WILL ARRANGE TRANSFER FOR IN AM.
[2018-06-29 20:00] VITALS: BP 126/48
--- NOTE | 2018-06-29 20:00 | NUR ---
AAOX3 SITTING UP ON BED. SKIN WARM & DRY. HEP LOCK INTACT TO RIGHT HAND; SITE ASYMPTOMATIC. LUNGS DIMINISHED BILATERALLY WITH NO COUGH NOTED AT THIS TIME. NO DISTRESS NOTED; PT. VOICES NO C/O AT THIS TIME. CALL LIGHT WITHIN REACH.
--- NOTE | 2018-06-29 22:00 | NUR ---
BLOOD SUGAR 158; PT. REFUSING COVERAGE BUT TAKES LANTUS 130 UNITS EVERY NIGHT.
--- NOTE | 2018-06-29 22:35 | NUR ---
MEDICATED WITH RESTORIL FOR C/O INSOMNIA, PERCOCET FOR C/O PAIN & VISTARIL FOR ANXIETY.
[2018-06-29] MEDS ORDERED: AVPAK AZITHROM250 M1 PO (23:45)
[2018-06-29] MEDS ORDERED: PREDNISONE20 M1 PO (23:45)
[2018-06-30] VITALS: BP 122/48
--- NOTE | 2018-06-30 02:00 | NUR ---
RESTING IN BED WITH EYES CLOSED. MEDICATIONS GIVEN EARLIER APPARENTLY EFFECTIVE. CALL LIGHT WITHIN REACH.
--- NOTE | 2018-06-30 06:44 | NUR ---
REPORT CALLED TO DORON AT [facility] SEPARATOR INSERTER.
--- NOTE | 2018-06-30 07:59 | NUR ---
Discharge instructions reviewed with patient/family. Patient receptive and verbalizes understanding. Follow-up care arranged. Written instructions given to patient/family.Pt transfer via ambulance to [facility] for heart cath today. Report called by previous shift. BRADLEY TEIXEIRA
[2018-09-02] MEDS ORDERED: CEPHALEXIN500 M1 PO (13:19)
== END 2018-06-30 07:59 | disposition other institution (70) | DRG 280 ==
LOC: ED 20:43 → 5E 06-26 00:21 → EDHOLD 06-26 00:21 → 5E 06-26 00:48
PROVIDERS: Internal Medicine; Internal Medicine Cardiovascular Disease; Student in an Organized Health Care Education/Training Program; ADMIT Internal Medicine
PROC: 4A02XM4 Measurement of Cardiac Total Activity, External Approach (ICD-10-PCS; principal; 2018-06-29)
PROC: 3E073KZ Introduction of Other Diagnostic Substance into Coronary Artery, Percutaneous Approach (ICD-10-PCS; principal; 2018-06-29)
DX: I21.A1 Myocardial infarction type 2 (principal); J96.01 Acute respiratory failure with hypoxia; J45.901 Unspecified asthma with (acute) exacerbation; E44.0 Moderate protein-calorie malnutrition; J44.1 Chronic obstructive pulmonary disease with (acute) exacerbation; J44.0 Chronic obstructive pulmonary disease with (acute) lower respiratory infection; Z68.42 Body mass index [BMI] 45.0-49.9, adult; J20.9 Acute bronchitis, unspecified; E11.42 Type 2 diabetes mellitus with diabetic polyneuropathy; E11.51 Type 2 diabetes mellitus with diabetic peripheral angiopathy without gangrene; F17.210 Nicotine dependence, cigarettes, uncomplicated; I71.2 Thoracic aortic aneurysm, without rupture; E03.9 Hypothyroidism, unspecified; E53.8 Deficiency of other specified B group vitamins; K76.0 Fatty (change of) liver, not elsewhere classified; K21.9 Gastro-esophageal reflux disease without esophagitis; E78.5 Hyperlipidemia, unspecified; I10 Essential (primary) hypertension; Z79.4 Long term (current) use of insulin; Z71.6 Tobacco abuse counseling; Z80.1 Family history of malignant neoplasm of trachea, bronchus and lung; Z91.018 Allergy to other foods; Z79.1 Long term (current) use of non-steroidal anti-inflammatories (NSAID); Z79.899 Other long term (current) drug therapy

== ENCOUNTER 2018-08-02 10:06 | Emergency (ER) | payer MEDICARE, OTHER ==
[~2018-08-02] VITALS: Ht 167.6 cm; Wt 135.2 kg
--- NOTE | ~2018-08-02 | EKG ---
[place], [place] ELECTROCARDIOGRAM REPORT NAME: ESTHER STERN UNIT #: [id number] ROOM: DOCTOR: DIETER DRAFT REPORT BIRTHDATE: [birth year] [facility] Test Date: 2018-08-02 Test Time: 11:33:35 Pat Name: ESTHER STERN Department: Room: Gender: F Civil Attorney: : 1960 Requested By: ADILSON HANSEN Order Number: [id number] Reading MD: Bogdan Phillips MD Measurements Intervals [place] Rate: 64 P: 52 TX: 164 QRS: 54 QRSD: 106 T: 31 QT: 415 QTc: 428 Interpretive Statements Sinus rhythm Baseline wander in lead(s) II,aVR,aVF Compared to ECG 06/26/2018 02:28:36 First degree AV block no longer present Electronically Signed On 08-03-2018 14:17:22 PST by Bogdan Phillips MD CM:EKGRPT:ELECTROCARDIOGRAM REPORT [id number] ADILSON RENE DRAFT REPORT ADISLON HANSEN DO
[~2018-08-02 10:06] MED LIST changes: +AVPAK AZITHROM250 M1 PO; +BUSPAR15 MG PO; +FARXIGA10 M1 PO; +LYRICA75 M1 PO; +OMEPRAZOLE40 MG PO; +PREDNISONE20 M1 PO; +ROSUVASTATIN CAL5 MG PO; +VITAMIN C500 M8 PO
[2018-08-02 10:42] LABS: BASO # 0.1 10*3/uL (0.0-0.1); BASO % 0.6 % (0.0-1.0); EOS # 0.3 10*3/uL (0.0-0.4); HEMATOCRIT 44.2 % (37.0-47.0); HEMOGLOBIN 13.7 g/dl (12.0-16.0); LYMPH % 15.9 % (27.0-41.0); MEAN CELL VOLUME 83.7 fl (81.0-99.0); MEAN CORPUSCULAR HGB 25.9 pg (27.0-31.0); MEAN PLATELET VOLUME 9.7 fl (9.6-12.3); MONO # 0.5 10*3/uL (0.1-1.0); MONO % 4.2 % (3.0-9.0); NEUT # 9.5 10*3/uL (2.3-7.9); PLATELET COUNT AUTOMATED 367 10*3/uL (130-400); RED BLOOD COUNT 5.28 10*6/uL (4.10-5.10); RED CELL DISTRI WIDTH 17.2 % (0-14.5); WHITE BLOOD COUNT 12.3 10*3/uL (4.8-10.8)
[2018-08-02 10:51] LABS: ACT PARTIAL THROMBO TIME 24.7 SECONDS (20.8-31.5)
[2018-08-02 10:58] LABS: ALBUMIN 3.3 gm/dl (3.1-4.5); ALKALINE PHOSPHATASE 230 U/L (45-117); BUN 21 mg/dl (7-24); CHLORIDE 98 mmol/L (98-107); CREATININE 0.95 mg/dL (0.55-1.02); LIPASE 181 U/L (73-393); POTASSIUM 4.2 mmol/L (3.5-5.1); SGOT/AST 34 IU/L (3-35); SGPT/ALT 30 U/L (12-78); SODIUM 134 mmol/L (136-145); TOTAL PROTEIN 8.3 gm/dL (6.4-8.2)
[2018-08-02 10:59] LABS: TROPONIN I < 0.015 ng/ml (<0.045)
[2018-09-02] MEDS ORDERED: CEPHALEXIN500 M1 PO (13:19)
[2018-12-12] MEDS ORDERED: ATIVAN1 MG PO (10:49)
== END 2018-08-02 14:45 | disposition short-term general hospital (02) ==
LOC: ED 10:06
PROVIDERS: Emergency Medicine
DX: E11.51 Type 2 diabetes mellitus with diabetic peripheral angiopathy without gangrene (principal); L03.031 Cellulitis of right toe; E11.43 Type 2 diabetes mellitus with diabetic autonomic (poly)neuropathy; I25.2 Old myocardial infarction; J45.909 Unspecified asthma, uncomplicated; G89.29 Other chronic pain; K31.84 Gastroparesis; K21.9 Gastro-esophageal reflux disease without esophagitis; E78.5 Hyperlipidemia, unspecified; I10 Essential (primary) hypertension; E03.9 Hypothyroidism, unspecified; E66.01 Morbid (severe) obesity due to excess calories; F17.200 Nicotine dependence, unspecified, uncomplicated; Z91.048 Other nonmedicinal substance allergy status; Z79.899 Other long term (current) drug therapy; Z79.2 Long term (current) use of antibiotics; Z79.4 Long term (current) use of insulin; Z79.82 Long term (current) use of aspirin

== ENCOUNTER 2018-12-21 17:49 | Emergency (ER) | payer MEDICARE, OTHER ==
[~2018-12-21] VITALS: Ht 167.6 cm; Wt 135.2 kg
[~2018-12-21 17:49] MED LIST changes: +ATIVAN1 MG PO
[2018-12-21] MEDS ORDERED: VANCOMYCIN HYDRO1 GM IV (18:05)
--- NOTE | 2018-12-21 21:01 | NUR ---
PICC LINE CHANGED OVER GUIDEWIRE. CXR WAS DONE. DRESSING APPLIED.
[2019-02-13] MEDS ORDERED: HUMULIN R100 UNIT/1 IJ (12:39)
[2019-02-15] MEDS ORDERED: SEPTDS PO (08:37)
[2019-02-15] MEDS ORDERED: ULTRAM50 MG PO (08:38)
== END 2018-12-21 21:05 | disposition home or self-care (01) ==
LOC: ED 17:49
DX: T82.838A Hemorrhage due to vascular prosthetic devices, implants and grafts, initial encounter (principal); I10 Essential (primary) hypertension; E11.9 Type 2 diabetes mellitus without complications; K21.9 Gastro-esophageal reflux disease without esophagitis; E78.5 Hyperlipidemia, unspecified; E03.9 Hypothyroidism, unspecified; E66.01 Morbid (severe) obesity due to excess calories; I25.2 Old myocardial infarction; J45.909 Unspecified asthma, uncomplicated; F17.200 Nicotine dependence, unspecified, uncomplicated; Z79.899 Other long term (current) drug therapy; Z79.82 Long term (current) use of aspirin; Z79.4 Long term (current) use of insulin; Z88.8 Allergy status to other drugs, medicaments and biological substances; Z91.018 Allergy to other foods; Y83.8 Other surgical procedures as the cause of abnormal reaction of the patient, or of later complication, without mention of misadventure at the time of the procedure; Y92.89 Other specified places as the place of occurrence of the external cause

== ENCOUNTER → 2019-02-15 | Day surgery (SDC) | payer MEDICARE, OTHER ==
[2019-02-13 14:33] LABS: BASO # 0.1 10*3/uL (0.0-0.1); BASO % 0.6 % (0.0-1.0); EOS # 0.2 10*3/uL (0.0-0.4); EOS % 2.3 % (1.0-4.0); HEMATOCRIT 35.3 % (37.0-47.0); HEMOGLOBIN 9.8 g/dl (12.0-16.0); LYMPH # 1.8 10*3/uL (1.3-4.4); LYMPH % 21.1 % (27.0-41.0); MEAN CORPUSCULAR HGB 21.9 pg (27.0-31.0); MEAN CORPUSCULAR HGB CONC 27.8 g/dl (33.0-37.0); MEAN PLATELET VOLUME 10.3 fl (9.6-12.3); MONO # 0.3 10*3/uL (0.1-1.0); MONO % 3.6 % (3.0-9.0); NEUT # 6.2 10*3/uL (2.3-7.9); NEUT % 71.8 % (47.0-73.0); PLATELET COUNT AUTOMATED 311 10*3/uL (130-400); RED BLOOD COUNT 4.47 10*6/uL (4.10-5.10); RED CELL DISTRI WIDTH 18.2 % (0-14.5); WHITE BLOOD COUNT 8.6 10*3/uL (4.8-10.8)
[2019-02-13 14:39] LABS: BUN 20 mg/dl (7-24); CHLORIDE 100 mmol/L (98-107); CREATININE 0.99 mg/dL (0.55-1.02); SODIUM 136 mmol/L (136-145)
[~2019-02-15] VITALS: Ht 167.6 cm; Wt 136.1 kg
[~2019-02-15] MED LIST changes: +CYCLOBENZAPRINE10 MG PO; +HUMULIN R100 UNIT/1 IJ; +SEPTDS PO; +ULTRAM50 MG PO; +VANCOMYCIN HYDRO1 GM IV
--- NOTE | ~2019-02-15 | WRIGHTHP ---
[place], [place] PATIENT HISTORY AND PHYSICAL EXAM [id number] UNIT #: [id number] ROOM: DOCTOR: DAILY SIMPSON DPM BIRTHDATE: [birth year] DOS: 02/15/2019 PHYSICAL EXAMINATION: LOWER EXTREMITY: Vascular, she has intact pedal pulse of the right with good cap refill time. NEUROLOGIC: She has a lack of protective sensation secondary to diabetic peripheral neuropathy. DERMATOLOGIC: She has a wound that measures 2.9 in length x 0.5 in width, thus travel to bone. There is probably no sinus tracking noted. ORTHOPEDIC: Consistent with chronic osteomyelitis of the fifth metatarsal on the right foot. DAILY SIMPSON DPM CM:HISPHYS:PATIENT HISTORY AND PHYSICAL EXAMINATION [id number] DAILY SIMPSON DPM 02/15/19 1047 interface
--- NOTE | ~2019-02-15 | WRIGHTHP ---
[place], [place] PATIENT HISTORY AND PHYSICAL EXAM NAME: ESTHER STERN [facility] #: [id number] UNIT #: [id number] ROOM: DOCTOR: DAILY SIMPSON DPM BIRTHDATE: [birth year] DOS: 02/15/2019 INDICATION: The patient suffers from chronic open wound on the dorsal aspect of the right foot. The wound measures 2.0 x 0.5 full thickness in nature, travels down to bone. There was no cardinal signs of infection, drainage, undermining or tunneling. There is a chronic protuberance of bone, was taken through a wound. At this time, she is set up for surgery for bone debridement and primary closure of the wound. With this in mind, she understands pros, cons, risks, benefits overcorrection, undercorrection, recurrence, numbness, infection, worsening. With this in mind, the patient was set for surgery at [facility] on 02/15/2019. DAILY SIMPSON DPM CM:HISPHYS:PATIENT HISTORY AND PHYSICAL EXAMINATION [id number] DAILY SIMPSON DPM 02/15/19 1045 interface
--- NOTE | ~2019-02-15 | O ---
[place], [place] OPERATIVE NOTE NAME: ESTHER STERN UNIT #: [id number] ROOM: DOCTOR: DAILY SIMPSON DPM BIRTHDATE: [birth year] DOS: 02/15/2019 SURGEON: Dr. Simpson. BUSINESS LOAN PROCESSOR: 1. Toño Castellano, fellow. 2. Tylor Castaneda, PGY3. PREOPERATIVE DIAGNOSES: 1. Osteomyelitis of fifth metatarsal. 2. Open wound on the right foot. POSTOPERATIVE DIAGNOSES: 1. Osteomyelitis of fifth metatarsal. 2. Open wound on the right foot. PROCEDURE: 1. Incision and drainage, bone debridement with bone biopsy of the right fifth metatarsal. 2. Complex closure of wound on the right fifth metatarsal area. DESCRIPTION OF PROCEDURE: The patient was seen preoperatively. Appropriate site marking was performed. She concurred and consented perioperative management and the site marking. She was brought into OR, placed well padded on the OR table. Anesthesia was achieved. Once the anesthesia was achieved, the right foot and leg were prepped and draped in usual sterile fashion. At this time, under fluoroscopy guidance, a 3:1 excision was performed along the wound to clean healthy margins straight down to bone. This tissue was then removed in total. PROCEDURE #1. Incision and drainage, bone debridement. Next, a rongeur was used to resect the bone and excise it, remove in total and this bone was sent for Gram stain, aerobic, anaerobic, fungal, acid fast as well as biopsy of the fifth metatarsal. The area was flushed with copious amounts of sterile saline. PROCEDURE #2: Complex closure. At this time, the medial and lateral aspect of the tissues of the fifth metatarsal were elevated, and at this point in time, the tissues were then closed using 2-0 and 1-0 nylon primarily closing the wound completely. The surgical wounds were dressed with Betadine-soaked Adaptic, 4 x 4s, Cayden, in a sterile compressive fashion. She tolerated the procedure and anesthesia well, left the OR with vital signs stable and vascular status intact. [place], [place] OPERATIVE NOTE NAME: ESTHER STERN UNIT #: [id number] ROOM: DOCTOR: DAILY SIMPSON DPM BIRTHDATE: [birth year] DAILY SIMPSON DPM CM:OPRECORD:OPERATIVE NOTE [id number] DAILY SIMPSON DPM 02/15/19 1049 interface
[2019-02-15 07:06] VITALS: BP 134/63
[2019-02-15 08:26] VITALS: BP 100/53
[2019-02-15 08:41] VITALS: BP 98/44
[2019-02-15 08:56] VITALS: BP 107/50
[2019-02-16 12:06] LABS: ACID FAST SPEC PROCESSING Tissue Grinding (.)
== END | disposition home or self-care (01) ==
LOC: SDC 02-06 13:15
PROVIDERS: Podiatrist
DX: S91.104A Unspecified open wound of right lesser toe(s) without damage to nail, initial encounter (principal); M86.8X7 Other osteomyelitis, ankle and foot; I10 Essential (primary) hypertension; E11.9 Type 2 diabetes mellitus without complications; K21.9 Gastro-esophageal reflux disease without esophagitis; G47.30 Sleep apnea, unspecified; F41.9 Anxiety disorder, unspecified; F32.9 Major depressive disorder, single episode, unspecified; F17.210 Nicotine dependence, cigarettes, uncomplicated; I25.2 Old myocardial infarction; E66.01 Morbid (severe) obesity due to excess calories; Z68.42 Body mass index [BMI] 45.0-49.9, adult; Z79.84 Long term (current) use of oral hypoglycemic drugs; Z79.899 Other long term (current) drug therapy; Z98.890 Other specified postprocedural states; Z86.73 Personal history of transient ischemic attack (TIA), and cerebral infarction without residual deficits; X58.XXXA Exposure to other specified factors, initial encounter; Y93.89 Activity, other specified; Y92.89 Other specified places as the place of occurrence of the external cause; Y99.8 Other external cause status; Z82.49 Family history of ischemic heart disease and other diseases of the circulatory system; Z80.8 Family history of malignant neoplasm of other organs or systems

== ENCOUNTER 2019-02-17 11:11 | Emergency (ER) | payer MEDICARE, OTHER ==
[~2019-02-17] VITALS: Ht 167.6 cm; Wt 136.1 kg
--- NOTE | ~2019-02-17 | EKG ---
[place], [place] ELECTROCARDIOGRAM REPORT NAME: ESTHER STERN UNIT #: [id number] ROOM: DOCTOR: DIETER DRAFT REPORT BIRTHDATE: [address] [facility] Test Date: 2019-02-17 Test Time: 12:07:18 Pat Name: ESTHER STERN Department: Room: Gender: F Trustee Of Estate: Zainab Trinh : 1960 Requested By: ADILSON HANSEN Order Number: [id number] Reading MD: Calin Barrera MD Measurements Intervals [place] Rate: 59 P: 67 OR: 187 QRS: 65 QRSD: 108 T: 56 QT: 430 QTc: 426 Interpretive Statements Sinus rhythm Nonspecific ST abnormality Nonspecific IVCD Compared to ECG 08/02/2018 11:33:35 No significant changes Electronically Signed On 02-18-2019 7:54:52 PDT by Calin Barrera MD CM:EKGRPT:ELECTROCARDIOGRAM REPORT [id number] ADILSON RENE DRAFT REPORT
--- NOTE | ~2019-02-17 | EKG ---
[place], [place] ELECTROCARDIOGRAM REPORT NAME: ESTHER STERN UNIT #: [id number] ROOM: DOCTOR: DIETER DRAFT REPORT BIRTHDATE: [birth year] [facility] Test Date: 2019-02-17 Test Time: 12:01:54 Pat Name: ESTHER STERN Department: Room: Gender: F Spiritual Advisor: : 1960 Requested By: ADILSON HANSNE Order Number: [id number] Reading MD: Measurements Intervals [place] Rate: 102 P: 22 SC: 159 QRS: -10 QRSD: 76 T: 5 QT: 315 QTc: 411 Interpretive Statements CM:EKGRPT:ELECTROCARDIOGRAM REPORT [id number] ADILSON RENE DRAFT REPORT ADILSON HANSEN DO
[~2019-02-17 11:11] MED LIST changes: -CYCLOBENZAPRINE10 MG PO
[2019-02-17 12:06] LABS: BASO # 0.1 10*3/uL (0.0-0.1); BASO % 0.6 % (0.0-1.0); EOS # 0.2 10*3/uL (0.0-0.4); EOS % 2.7 % (1.0-4.0); HEMATOCRIT 35.1 % (37.0-47.0); HEMOGLOBIN 9.9 g/dl (12.0-16.0); LYMPH # 2.1 10*3/uL (1.3-4.4); LYMPH % 24.2 % (27.0-41.0); MEAN CELL VOLUME 79.4 fl (81.0-99.0); MEAN CORPUSCULAR HGB 22.4 pg (27.0-31.0); MEAN CORPUSCULAR HGB CONC 28.2 g/dl (33.0-37.0); MONO # 0.4 10*3/uL (0.1-1.0); MONO % 4.8 % (3.0-9.0); NEUT # 5.7 10*3/uL (2.3-7.9); NEUT % 67.3 % (47.0-73.0); PLATELET COUNT AUTOMATED 338 10*3/uL (130-400); RED BLOOD COUNT 4.42 10*6/uL (4.10-5.10); RED CELL DISTRI WIDTH 17.8 % (0-14.5); WHITE BLOOD COUNT 8.5 10*3/uL (4.8-10.8)
[2019-02-17 12:18] LABS: ACT PARTIAL THROMBO TIME 26.1 SECONDS (20.0-32.1)
[2019-02-17 12:21] LABS: ALBUMIN 3.1 gm/dl (3.1-4.5); ALKALINE PHOSPHATASE 222 U/L (45-117); BUN 22 mg/dl (7-24); CHLORIDE 98 mmol/L (98-107); CREATININE 1.12 mg/dL (0.55-1.02); LIPASE 88 U/L (73-393); POTASSIUM 4.6 mmol/L (3.5-5.1); SGOT/AST 29 IU/L (3-35); SGPT/ALT 21 U/L (12-78); SODIUM 134 mmol/L (136-145); TOTAL PROTEIN 7.7 gm/dL (6.4-8.2)
[2019-02-17 12:33] LABS: TROPONIN I < 0.015 ng/ml (<0.045)
[2019-02-17] MEDS ORDERED: CYCLOBENZAPRINE10 MG PO (14:18)
== END 2019-02-17 14:29 | disposition home or self-care (01) ==
LOC: ED 11:11
PROVIDERS: Emergency Medicine
DX: S16.1XXA Strain of muscle, fascia and tendon at neck level, initial encounter (principal); K21.9 Gastro-esophageal reflux disease without esophagitis; I10 Essential (primary) hypertension; E78.5 Hyperlipidemia, unspecified; E66.01 Morbid (severe) obesity due to excess calories; E03.9 Hypothyroidism, unspecified; J45.909 Unspecified asthma, uncomplicated; M86.9 Osteomyelitis, unspecified; E11.43 Type 2 diabetes mellitus with diabetic autonomic (poly)neuropathy; E11.40 Type 2 diabetes mellitus with diabetic neuropathy, unspecified; K31.84 Gastroparesis; F17.200 Nicotine dependence, unspecified, uncomplicated; R79.1 Abnormal coagulation profile; Z79.4 Long term (current) use of insulin; Z88.8 Allergy status to other drugs, medicaments and biological substances; Z79.82 Long term (current) use of aspirin; X58.XXXA Exposure to other specified factors, initial encounter; Y93.89 Activity, other specified; Y92.89 Other specified places as the place of occurrence of the external cause; Y99.8 Other external cause status

== ENCOUNTER 2019-07-25 15:42 | Inpatient (IN) | payer MEDICARE, OTHER ==
[~2019-07-25] VITALS: Ht 167.6 cm; Wt 159.7 kg
[~2019-07-25 15:42] MED LIST changes: +CYCLOBENZAPRINE10 MG PO
[2019-07-25 15:43] VITALS: BP 116/44
[2019-07-25 16:09] VITALS: BP 127/49
[2019-07-25 17:08] LABS: BASO # 0.1 10*3/uL (0.0-0.1); BASO % 0.7 % (0.0-1.0); EOS # 0.3 10*3/uL (0.0-0.4); EOS % 3.9 % (1.0-4.0); HEMATOCRIT 30.1 % (37.0-47.0); HEMOGLOBIN 8.1 g/dl (12.0-16.0); LYMPH # 1.7 10*3/uL (1.3-4.4); LYMPH % 20.7 % (27.0-41.0); MEAN CELL VOLUME 78.8 fl (81.0-99.0); MEAN CORPUSCULAR HGB 21.2 pg (27.0-31.0); MEAN CORPUSCULAR HGB CONC 26.9 g/dl (33.0-37.0); MEAN PLATELET VOLUME 10.5 fl (9.6-12.3); MONO # 0.5 10*3/uL (0.1-1.0); MONO % 5.9 % (3.0-9.0); NEUT # 5.5 10*3/uL (2.3-7.9); NEUT % 68.2 % (47.0-73.0); PLATELET COUNT AUTOMATED 279 10*3/uL (130-400); RED BLOOD COUNT 3.82 10*6/uL (4.10-5.10); RED CELL DISTRI WIDTH 20.2 % (0-14.5)
[2019-07-25 17:21] LABS: ACT PARTIAL THROMBO TIME 25.9 SECONDS (20.0-32.1)
[2019-07-25 17:24] LABS: ALBUMIN 2.9 gm/dl (3.1-4.5); ALKALINE PHOSPHATASE 446 U/L (45-117); BUN 19 mg/dl (7-24); CHLORIDE 102 mmol/L (98-107); CREATININE 1.29 mg/dL (0.55-1.02); LIPASE 77 U/L (73-393); SGOT/AST 33 IU/L (3-35); SGPT/ALT 35 U/L (12-78); SODIUM 138 mmol/L (136-145); TOTAL PROTEIN 7.5 gm/dL (6.4-8.2)
[2019-07-25 17:26] LABS: TROPONIN I < 0.015 ng/ml (<0.045)
[2019-07-25 18:09] VITALS: BP 129/58
[2019-07-25 19:09] VITALS: BP 142/52
[2019-07-25 19:32] VITALS: BP 144/60
[2019-07-25 22:00] VITALS: BP 128/56
--- NOTE | 2019-07-25 22:02 | NUR ---
A 59, admitted to , under the services of PAYTON Adams DO with a diagnosis of chf. Chief complaint is SHORTNESS OF BREATH. Patient arrived via stretcher from ER. Monitor applied. Initial assessment completed. Vital signs taken and recorded. PAYTON ADAMS DO notified of admission to the unit. Orders received. See assessment for past medical history, medications and allergies. Patient and/or family oriented to unit. [facility] visitation policy reviewed. Clothing/patient valuable form completed. PHIL ACOSTA
[2019-07-25] MEDS ORDERED: HUMULIN R100 UNIT/1 SC ×2 (22:27→22:28)
--- NOTE | 2019-07-25 22:33 | NUR ---
DR NATARAJAN AWARE OF DR BUENO CONSULT
--- NOTE | 2019-07-25 22:38 | NUR ---
DR RODAS ANSWERING SERVICE AWARE OF CONSULT
[2019-07-25] MEDS ORDERED: LYRICA100 M1 PO (22:42)
[2019-07-25] MEDS ORDERED: ROSUVASTATIN CA10 MG PO (22:44)
[2019-07-25] MEDS ORDERED: VITAMIN D35000 UNIT PO (22:45)
[2019-07-25] MEDS ORDERED: ROSUVASTATIN CA40 MG PO (22:47)
[2019-07-25] MEDS ORDERED: LOPERAMIDE HCL2 MG PO (22:48)
[2019-07-25] MEDS ORDERED: LEVOTHYROXINE175 MCG PO (22:49)
[2019-07-25] MEDS ORDERED: LIOTHYRONINE SO5 MCG PO (22:50)
[2019-07-25] MEDS ORDERED: VASCEPA1 G1 PO (22:56)
--- NOTE | 2019-07-25 22:58 | NUR ---
MED REC COMPLETED PER PATIENT. CPAP FROM HOME BROUGHT IN AND CHECKED BY MAINTENANCE FOR USE
--- NOTE | 2019-07-25 23:01 | NUR ---
DR OGDEN AWARE OF PATIENT NEEDING AN ORDER FOR HOME CPAP. MADE AWARE OF THE NEED FOR WOUND ORDERS, STATES HE WANTS TO WAIT UNTIL PODIATRY SEE'S THE PATIENT. MADE AWARE OF THE MED REC BEING DONE, AND THAT THE PATIENT IS REFUSING THE SLIDING SCALE AND WANTS HER HOME HUMULIN R ORDER.
--- NOTE | 2019-07-26 03:51 | NUR ---
ESTHER STERN [id number] Please refer to the physician's history and physical for past medical history, comorbid conditions, and allergies. Diagnosis: MILD CONGESTIVE HEART FAILURE OSTEOMYELITIS Humberto Score: 15,AT RISK WOUND DESCRIPTIONS: Wound Number: 1 Location of the wound: right 4th toe Type of wound: unstageable Thickness: Full Size: 1.1cm x 1.4cm x <0.1cm Tunneling: none Undermining: none Sinus Tract: none Presence of Exudate: Serosanguineous Amount: Light Color: Yellow, red Odor: None Periwound Skin Appearance: Normal Wound edges: approximated Pain (associated with wound): none at time of assessment How does patient state this happened? pt stated this is ongoing and just had the tip of her toe removed and she states she follows with Dr. Tavarez weekly and gets debrided in the office Wound Number: 2 Location of the wound: right 3rd toe distal Type of wound: unstageable Thickness: Full Size: 1.7cm x 0.7cm x <0.1cm Tunneling: none Undermining: none Sinus Tract: none Presence of Exudate: Serosanguineous Amount: Light Color: Red, yellow Odor: None Periwound Skin Appearance: Normal Wound edges: approximated Pain (associated with wound): none at time of assessment How does patient state this happened? pt stated this is ongoing and just had the tip of her toe removed and she states she follows with Dr. Tavarez weekly and gets debrided in the office Wound Number: 3 Location of the wound: right 3rd toe proximal Type of wound: unstageable Thickness: Full Size: 0.6cm x 0.6cm x <0.1cm Tunneling: none Undermining: none Sinus Tract: none Presence of Exudate: Serosanguineous Amount: Light Color: Red, yellow, brown Odor: None Periwound Skin Appearance: Normal Wound edges: approximated Pain (associated with wound): none at time of assessment How does patient state this happened? pt stated this is ongoing and just had the tip of her toe removed and she states she follows with Dr. Tavarez weekly and gets debrided in the office Surface the patient is resting on: Isoflex SKIN PREVENTION RECOMMENDATION: 1. Pressure redistribution support surface as appropriate 2. Elevate heels 3. Remove boots/TEDS every shift and reapply 4. Head of bed 30 degrees as tolerated 5. Assess nutrition and hydration 6. Manage moisture 7. Avoid the use of containment devices while in bed 8. Use absorptive products on surfaces limit layers of linens on bed 9. Turn and reposition every 1-2 hours in bed and every 1 hour in chair as tolerated 10. Weight shifts every 15 minutes while up in chair 11. Offloading with pillows or device to keep heels elevated off bed 12. Monitor skin at least every shift 13. Inspect under medical devices twice a day WOUND TREATMENT RECOMMENDATIONS: Apply betadine soaked adaptic and wrap lightly with rolled gauze daily and prn for soiling to right 3rd proximal, right 3rd distal and right 4th toe. Heel raiser pro boots to bilateral feet while in bed. Podaitry and ID are already consulted.
[2019-07-26 06:11] LABS: BASO # 0.1 10*3/uL (0.0-0.1); BASO % 0.7 % (0.0-1.0); EOS # 0.3 10*3/uL (0.0-0.4); EOS % 4.4 % (1.0-4.0); HEMATOCRIT 30.1 % (37.0-47.0); LYMPH # 1.2 10*3/uL (1.3-4.4); MEAN CORPUSCULAR HGB CONC 26.6 g/dl (33.0-37.0); MEAN PLATELET VOLUME 10.7 fl (9.6-12.3); MONO # 0.5 10*3/uL (0.1-1.0); MONO % 7.4 % (3.0-9.0); NEUT # 4.8 10*3/uL (2.3-7.9); NEUT % 69.9 % (47.0-73.0); PLATELET COUNT AUTOMATED 252 10*3/uL (130-400); RED BLOOD COUNT 3.81 10*6/uL (4.10-5.10); RED CELL DISTRI WIDTH 20.2 % (0-14.5); WHITE BLOOD COUNT 6.9 10*3/uL (4.8-10.8)
[2019-07-26 06:14] LABS: ALBUMIN 2.9 gm/dl (3.1-4.5); CREATININE 1.19 mg/dL (0.55-1.02); FREE T4 1.23 ng/dl (0.76-1.46); PHOSPHOROUS 3.8 mg/dL (2.5-4.9); POTASSIUM 3.7 mmol/L (3.5-5.1); TOTAL PROTEIN 7.2 gm/dL (6.4-8.2)
[2019-07-26 06:20] LABS: THYROID STIM HORMONE (HS) 5.42 uIU/ml (0.358-4.75)
--- NOTE | 2019-07-26 07:33 | NUR ---
Dr. Quintero notified of wound care recommendations.
[2019-07-26 07:44] LABS: VITAMIN D, 25-HYDROXY 54.5 ng/mL (30-100)
--- NOTE | 2019-07-26 09:14 | NUR ---
MEDICATED WITH PERCOCET PER ORDER AND REQUEST FOR BACK PAIN.
--- NOTE | 2019-07-26 10:30 | NUR ---
PERCOCET HELPED AND ALSO CHANGED BED FOR PATIENT TO AIR MATTRESS.
[2019-07-26 12:00] VITALS: BP 120/49
--- NOTE | 2019-07-26 12:34 | NUR ---
BLADDER SCAN EARLIER WAS 65ML.
--- NOTE | 2019-07-26 14:41 | NUR ---
Outsole Leveler in to talk to patient. Patient states lives at HOME with ALONE. There are NO steps in the home. Physician: SCOTT [facility]: [facility] Home health services: [facility] Patient's level of ADLs: MINIMAL ASSIST Patient has working utilities: YES DME: ROLLATOR, C PAP, SHOWER CHAIR Follow-up physician's appointment after d/c: WILL BE MADE BY HOSPITALIST NURSE DIRECTOR ON DISCHARGE. Does patient want to access PORTAL?: NO Discharge plan PT LIVES ALONE AT HOME. SHE HAS AIDS THROUGH [facility]. PT STATES SHE HAS A ROLLATOR, CPAP, AND SHOWER CHAIR AT HOME. DENIES ANY OTHER NEEDS AT THIS TIME. WILL CONTINUE TO FOLLOW. STATES SHE WILL HAVE A RIDE HOME. . FABIÁN RANKIN
[2019-07-26 16:00] VITALS: BP 130/42
--- NOTE | 2019-07-26 18:24 | NUR ---
DR. MILLS AWARE OF US RESULTS.
[2019-07-26 20:00] VITALS: BP 103/36
[2019-07-27] VITALS: BP 148/45
[2019-07-27 08:26] LABS: BASO % 0.6 % (0.0-1.0); EOS # 0.4 10*3/uL (0.0-0.4); HEMATOCRIT 30.9 % (37.0-47.0); HEMOGLOBIN 8.1 g/dl (12.0-16.0); LYMPH # 1.7 10*3/uL (1.3-4.4); LYMPH % 24.6 % (27.0-41.0); MEAN CELL VOLUME 78.8 fl (81.0-99.0); MEAN CORPUSCULAR HGB 20.7 pg (27.0-31.0); MEAN CORPUSCULAR HGB CONC 26.2 g/dl (33.0-37.0); MEAN PLATELET VOLUME 11.3 fl (9.6-12.3); MONO # 0.5 10*3/uL (0.1-1.0); MONO % 7.5 % (3.0-9.0); NEUT # 4.3 10*3/uL (2.3-7.9); NEUT % 61.9 % (47.0-73.0); PLATELET COUNT AUTOMATED 283 10*3/uL (130-400); RED BLOOD COUNT 3.92 10*6/uL (4.10-5.10); RED CELL DISTRI WIDTH 20.1 % (0-14.5)
[2019-07-27 08:48] LABS: ALBUMIN 3.1 gm/dl (3.1-4.5); POTASSIUM 4.1 mmol/L (3.5-5.1)
[2019-07-27 08:51] LABS: CREATININE 1.25 mg/dL (0.55-1.02); TOTAL PROTEIN 7.3 gm/dL (6.4-8.2)
[2019-07-27 09:00] VITALS: BP 118/48
--- NOTE | 2019-07-27 11:20 | NUR ---
Occupational Therapy evaluation completed on 5 with full eval to follow. Precautions include weight bearing on right heel only w/ wheeled walker, fall risk d/t wb limits, low complexity level 65200. Recommend OT per pOC and home health upon d/c for SN,OT,PT. Thank you. Tamara Bronson OTR/L
[2019-07-27 12:00] VITALS: BP 120/52
--- NOTE | 2019-07-27 13:40 | NUR ---
MEDICATED WITH PRN PERCOCET FOR C/O BACK PAIN.
--- NOTE | 2019-07-27 13:45 | NUR ---
PHYSICAL THERAPY Francis completed moderate level of complextiy 36845 recomend home w HH PT/OT/Nsg and fww. PT to work on transfer,amb w FWW, janelle/safety, strengthening Lani Calhoun PT
[2019-07-27] MEDS ORDERED: LASIX40 MG PO (14:43)
[2019-07-27] MEDS ORDERED: XARELTO1 EACH PO (14:43)
--- NOTE | 2019-07-27 14:57 | NUR ---
[facility] AND PT WILL HAVE ZERO COPAY FOR XERALTO. CALLED FLOOR AND LEFT MESSAGE WITH AVRIL KANG TO TELL RN TO LET PT KNOW. RESUME [facility] FAXED TO [facility].
--- NOTE | 2019-07-27 14:59 | NUR ---
PATIENT GOING HOME.
--- NOTE | 2019-07-27 15:45 | NUR ---
PATIENT REFUSED WOUND PICTURES BECAUSE DOCTOR JUST WRAPPED TODAY AND SHE GOES ALL THE TIME.
--- NOTE | 2019-07-27 16:09 | NUR ---
PATIENT DISCHARGED TO HOME VIA , DISCHARGE INSTRUCTIONS GIVEN.
== END 2019-07-27 14:59 | disposition home health service (06) | DRG 291 ==
LOC: ED 15:42 → 5E 20:06 → EDHOLD 20:06 → 5E 21:16
PROVIDERS: Family Medicine; Internal Medicine; Nurse Practitioner Family; ADMIT Internal Medicine
PROC: 5A09357 Assistance with Respiratory Ventilation, Less than 24 Consecutive Hours, Continuous Positive Airway Pressure (ICD-10-PCS; principal; 2019-07-26)
PROC: 5A09357 Assistance with Respiratory Ventilation, Less than 24 Consecutive Hours, Continuous Positive Airway Pressure (ICD-10-PCS; 2019-07-27)
DX: I11.0 Hypertensive heart disease with heart failure (principal); N17.0 Acute kidney failure with tubular necrosis; E44.0 Moderate protein-calorie malnutrition; M86.671 Other chronic osteomyelitis, right ankle and foot; Z68.43 Body mass index [BMI] 50.0-59.9, adult; I82.411 Acute embolism and thrombosis of right femoral vein; I50.33 Acute on chronic diastolic (congestive) heart failure; E11.69 Type 2 diabetes mellitus with other specified complication; D50.9 Iron deficiency anemia, unspecified; E83.41 Hypermagnesemia; E11.65 Type 2 diabetes mellitus with hyperglycemia; M54.9 Dorsalgia, unspecified; G89.29 Other chronic pain; E03.9 Hypothyroidism, unspecified; J45.909 Unspecified asthma, uncomplicated; K76.0 Fatty (change of) liver, not elsewhere classified; E78.5 Hyperlipidemia, unspecified; E11.51 Type 2 diabetes mellitus with diabetic peripheral angiopathy without gangrene; K21.9 Gastro-esophageal reflux disease without esophagitis; E11.43 Type 2 diabetes mellitus with diabetic autonomic (poly)neuropathy; K31.84 Gastroparesis; E66.01 Morbid (severe) obesity due to excess calories; F41.9 Anxiety disorder, unspecified; G47.33 Obstructive sleep apnea (adult) (pediatric); E11.621 Type 2 diabetes mellitus with foot ulcer; L89.892 Pressure ulcer of other site, stage 2; B95.62 Methicillin resistant Staphylococcus aureus infection as the cause of diseases classified elsewhere; I27.20 Pulmonary hypertension, unspecified; I25.2 Old myocardial infarction; Z89.421 Acquired absence of other right toe(s); Z88.8 Allergy status to other drugs, medicaments and biological substances; Z79.899 Other long term (current) drug therapy; Z79.4 Long term (current) use of insulin; Z95.820 Peripheral vascular angioplasty status with implants and grafts; Z87.891 Personal history of nicotine dependence; Z80.0 Family history of malignant neoplasm of digestive organs; Z80.1 Family history of malignant neoplasm of trachea, bronchus and lung; Z80.52 Family history of malignant neoplasm of bladder; Z79.82 Long term (current) use of aspirin

== ENCOUNTER → 2019-08-14 | Outpatient (CLI) | payer OTHER ==
[~2019-08-14] MED LIST changes: +HUMULIN R100 UNIT/1 SC; +LASIX40 MG PO; +LEVOTHYROXINE175 MCG PO; +LIOTHYRONINE SO5 MCG PO; +LOPERAMIDE HCL2 MG PO; +LYRICA100 M1 PO; +ROSUVASTATIN CA10 MG PO; +ROSUVASTATIN CA40 MG PO; +VASCEPA1 G1 PO; +VITAMIN D35000 UNIT PO; +XARELTO1 EACH PO
[2019-08-14 11:59] LABS: BASO # 0.1 10*3/uL (0.0-0.1); BASO % 0.7 % (0.0-1.0); EOS # 0.4 10*3/uL (0.0-0.4); EOS % 4.3 % (1.0-4.0); HEMATOCRIT 32.9 % (37.0-47.0); HEMOGLOBIN 8.8 g/dl (12.0-16.0); LYMPH # 1.9 10*3/uL (1.3-4.4); LYMPH % 19.8 % (27.0-41.0); MEAN CELL VOLUME 77.8 fl (81.0-99.0); MEAN CORPUSCULAR HGB 20.8 pg (27.0-31.0); MEAN CORPUSCULAR HGB CONC 26.7 g/dl (33.0-37.0); MEAN PLATELET VOLUME 10.3 fl (9.6-12.3); MONO # 0.6 10*3/uL (0.1-1.0); MONO % 5.8 % (3.0-9.0); NEUT # 6.5 10*3/uL (2.3-7.9); NEUT % 69.1 % (47.0-73.0); PLATELET COUNT AUTOMATED 302 10*3/uL (130-400); RED BLOOD COUNT 4.23 10*6/uL (4.10-5.10); RED CELL DISTRI WIDTH 18.9 % (0-14.5); RETICULOCYTE % 3.15 % (0.50-2.50); WHITE BLOOD COUNT 9.5 10*3/uL (4.8-10.8)
[2019-08-14 12:06] LABS: ALBUMIN 3.5 gm/dl (3.1-4.5); CREATININE 1.19 mg/dL (0.55-1.02); POTASSIUM 3.6 mmol/L (3.5-5.1); TOTAL PROTEIN 8.4 gm/dL (6.4-8.2)
[2019-08-14 12:12] LABS: THYROID STIM HORMONE (HS) 4.78 uIU/ml (0.358-4.75)
[2019-08-14 12:47] LABS: FERRITIN 13.2 ng/mL (10.0-291.0); VITAMIN D, 25-HYDROXY 50.1 ng/mL (30-100)
[2019-08-14 13:26] LABS: BILIRUBIN NEGATIVE (NEGATIVE); BLOOD NEGATIVE (NEGATIVE); CLARITY SL CLOUDY (CLEAR); COLOR YELLOW (YELLOW); GLUCOSE 1+ (NEGATIVE); KETONE NEGATIVE (NEGATIVE); LEUKO ESTERASE 1+ (NEGATIVE); NITRITE NEGATIVE (NEGATIVE); PH 6.5 (5.0-9.0); SPECIFIC GRAVITY 1.015 (1.005-1.030); UROBILINOGEN 0.2 E.U./dl (0.2-1.0)
[2019-08-14 13:38] LABS: BACTERIA 1+; WBC 21-30 wbc/hpf (0-5)
== END | disposition home or self-care (01) ==
LOC: MRI 10:00 → LAB 10:02
PROVIDERS: Family Medicine
DX: M86.171 Other acute osteomyelitis, right ankle and foot (principal); A52.16 Charcot's arthropathy (tabetic); M25.474 Effusion, right foot; M19.071 Primary osteoarthritis, right ankle and foot; M21.41 Flat foot [pes planus] (acquired), right foot; L03.115 Cellulitis of right lower limb; K76.0 Fatty (change of) liver, not elsewhere classified; R79.89 Other specified abnormal findings of blood chemistry; E55.9 Vitamin D deficiency, unspecified; Z79.899 Other long term (current) drug therapy

== ENCOUNTER 2019-09-11 00:53 | Inpatient (IN) | payer OTHER ==
[~2019-09-11] VITALS: Ht 167.6 cm; Wt 147.5 kg
[2019-09-11] VITALS (8 sets, daily range): BP systolic 90–130; BP diastolic 40–90
[2019-09-11 01:28] LABS: BASO # 0.1 10*3/uL (0.0-0.1); BASO % 0.9 % (0.0-1.0); EOS # 0.3 10*3/uL (0.0-0.4); EOS % 3.9 % (1.0-4.0); HEMATOCRIT 30.4 % (37.0-47.0); LYMPH # 1.8 10*3/uL (1.3-4.4); LYMPH % 22.3 % (27.0-41.0); MEAN CELL VOLUME 80.9 fl (81.0-99.0); MEAN CORPUSCULAR HGB 21.3 pg (27.0-31.0); MEAN CORPUSCULAR HGB CONC 26.3 g/dl (33.0-37.0); MEAN PLATELET VOLUME 10.4 fl (9.6-12.3); MONO # 0.3 10*3/uL (0.1-1.0); MONO % 3.8 % (3.0-9.0); NEUT # 5.4 10*3/uL (2.3-7.9); NEUT % 68.7 % (47.0-73.0); PLATELET COUNT AUTOMATED 249 10*3/uL (130-400); RED BLOOD COUNT 3.76 10*6/uL (4.10-5.10); RED CELL DISTRI WIDTH 20.3 % (0-14.5); WHITE BLOOD COUNT 7.9 10*3/uL (4.8-10.8)
[2019-09-11 01:39] LABS: ACT PARTIAL THROMBO TIME 29.3 SECONDS (20.0-32.1); INTERNATIONAL NORM RATIO 1.2 (2.0-3.5)
[2019-09-11 01:56] LABS: ALBUMIN 3.1 gm/dl (3.1-4.5); ALKALINE PHOSPHATASE 231 U/L (45-117); BUN 16 mg/dl (7-24); CHLORIDE 104 mmol/L (98-107); CREATININE 1.13 mg/dL (0.55-1.02); POTASSIUM 4.1 mmol/L (3.5-5.1); SGOT/AST 27 IU/L (3-35); SGPT/ALT 20 U/L (12-78); SODIUM 141 mmol/L (136-145); TOTAL PROTEIN 7.3 gm/dL (6.4-8.2)
[2019-09-11 01:57] LABS: TROPONIN I 0.015 ng/ml (<0.045)
[2019-09-11] MEDS ORDERED: FARXIGA10 M1 PO (04:53)
[2019-09-11 06:52] LABS: BASO # 0.1 10*3/uL (0.0-0.1); BASO % 0.7 % (0.0-1.0); EOS # 0.4 10*3/uL (0.0-0.4); EOS % 4.5 % (1.0-4.0); HEMATOCRIT 28.8 % (37.0-47.0); HEMOGLOBIN 7.6 g/dl (12.0-16.0); LYMPH # 2.6 10*3/uL (1.3-4.4); LYMPH % 28.8 % (27.0-41.0); MEAN CELL VOLUME 80.7 fl (81.0-99.0); MEAN CORPUSCULAR HGB 21.3 pg (27.0-31.0); MEAN CORPUSCULAR HGB CONC 26.4 g/dl (33.0-37.0); MEAN PLATELET VOLUME 10.9 fl (9.6-12.3); MONO # 0.4 10*3/uL (0.1-1.0); MONO % 4.9 % (3.0-9.0); NEUT # 5.4 10*3/uL (2.3-7.9); NEUT % 60.6 % (47.0-73.0); PLATELET COUNT AUTOMATED 246 10*3/uL (130-400); RED BLOOD COUNT 3.57 10*6/uL (4.10-5.10); RED CELL DISTRI WIDTH 19.9 % (0-14.5); WHITE BLOOD COUNT 8.9 10*3/uL (4.8-10.8)
[2019-09-11 06:59] LABS: BUN 18 mg/dl (7-24); CHLORIDE 107 mmol/L (98-107); CREATININE 1.02 mg/dL (0.55-1.02); PHOSPHOROUS 4.8 mg/dL (2.5-4.9); POTASSIUM 3.7 mmol/L (3.5-5.1); SODIUM 141 mmol/L (136-145)
[2019-09-12 01:24] VITALS: BP 108/54
[2019-09-12 06:06] VITALS: BP 102/58
[2019-09-12 06:15] LABS: BASO # 0.1 10*3/uL (0.0-0.1); BASO % 0.8 % (0.0-1.0); EOS # 0.4 10*3/uL (0.0-0.4); EOS % 4.5 % (1.0-4.0); HEMATOCRIT 31.6 % (37.0-47.0); HEMOGLOBIN 8.3 g/dl (12.0-16.0); LYMPH # 2.2 10*3/uL (1.3-4.4); LYMPH % 26.5 % (27.0-41.0); MEAN CELL VOLUME 79.8 fl (81.0-99.0); MEAN CORPUSCULAR HGB CONC 26.3 g/dl (33.0-37.0); MEAN PLATELET VOLUME 10.4 fl (9.6-12.3); MONO # 0.5 10*3/uL (0.1-1.0); MONO % 6.2 % (3.0-9.0); NEUT # 5.2 10*3/uL (2.3-7.9); NEUT % 61.6 % (47.0-73.0); PLATELET COUNT AUTOMATED 252 10*3/uL (130-400); RED BLOOD COUNT 3.96 10*6/uL (4.10-5.10); WHITE BLOOD COUNT 8.4 10*3/uL (4.8-10.8)
[2019-09-12 06:29] LABS: BUN 17 mg/dl (7-24); CHLORIDE 104 mmol/L (98-107); POTASSIUM 4.1 mmol/L (3.5-5.1); SODIUM 139 mmol/L (136-145)
[2019-09-12 08:00] VITALS: BP 123/42
[2019-09-12 12:00] VITALS: BP 140/52
[2019-09-12] MEDS ORDERED: LOPRESSOR25 MG PO (14:38)
[2019-09-12] MEDS ORDERED: ISORDIL10 M1 PO (14:38)
[2019-09-12] MEDS ORDERED: XARE20MG PO (14:38)
== END 2019-09-12 15:28 | disposition home or self-care (01) | DRG 205 ==
LOC: ED 00:53 → EDHOLD 03:19 → 4E 03:19
PROVIDERS: Emergency Medicine; Internal Medicine Cardiovascular Disease; Student in an Organized Health Care Education/Training Program; ADMIT Family Medicine
DX: M94.0 Chondrocostal junction syndrome [Tietze] (principal); J96.00 Acute respiratory failure, unspecified whether with hypoxia or hypercapnia; Z68.43 Body mass index [BMI] 50.0-59.9, adult; E44.0 Moderate protein-calorie malnutrition; I50.32 Chronic diastolic (congestive) heart failure; E11.65 Type 2 diabetes mellitus with hyperglycemia; Z79.4 Long term (current) use of insulin; E03.9 Hypothyroidism, unspecified; J45.909 Unspecified asthma, uncomplicated; E78.5 Hyperlipidemia, unspecified; I73.9 Peripheral vascular disease, unspecified; Z95.9 Presence of cardiac and vascular implant and graft, unspecified; K21.9 Gastro-esophageal reflux disease without esophagitis; I11.0 Hypertensive heart disease with heart failure; F41.9 Anxiety disorder, unspecified; E66.01 Morbid (severe) obesity due to excess calories; M79.2 Neuralgia and neuritis, unspecified; D50.9 Iron deficiency anemia, unspecified; G47.33 Obstructive sleep apnea (adult) (pediatric); G89.29 Other chronic pain; M25.559 Pain in unspecified hip; I25.2 Old myocardial infarction; Z89.421 Acquired absence of other right toe(s); Z80.2 Family history of malignant neoplasm of other respiratory and intrathoracic organs; Z88.0 Allergy status to penicillin; Z79.899 Other long term (current) drug therapy; Z79.82 Long term (current) use of aspirin; I25.10 Atherosclerotic heart disease of native coronary artery without angina pectoris; E11.51 Type 2 diabetes mellitus with diabetic peripheral angiopathy without gangrene; Z86.718 Personal history of other venous thrombosis and embolism; R07.89 Other chest pain

== ENCOUNTER 2019-12-07 08:32 | Inpatient (IN) | payer OTHER ==
[~2019-12-07] VITALS: Ht 167.6 cm; Wt 135.7 kg
[~2019-12-07 08:32] MED LIST changes: +ISORDIL10 M1 PO; +LOPRESSOR25 MG PO; +XARE20MG PO
[2019-12-07 08:41] VITALS: BP 118/54
[2019-12-07 09:11] LABS: HEMATOCRIT 39.1 % (37.0-47.0); MEAN CELL VOLUME 72.9 fl (81.0-99.0); MEAN CORPUSCULAR HGB 18.8 pg (27.0-31.0); MEAN CORPUSCULAR HGB CONC 25.8 g/dl (33.0-37.0); MEAN PLATELET VOLUME 10.1 fl (9.6-12.3); PLATELET COUNT AUTOMATED 347 10*3/uL (130-400); RED BLOOD COUNT 5.36 10*6/uL (4.10-5.10); RED CELL DISTRI WIDTH 21.3 % (0-14.5)
[2019-12-07 09:22] LABS: INTERNATIONAL NORM RATIO 1.1 (2.0-3.5)
[2019-12-07 09:28] LABS: ALBUMIN 3.7 gm/dl (3.1-4.5); CREATININE 1.51 mg/dL (0.55-1.02); POTASSIUM 3.6 mmol/L (3.5-5.1); TOTAL PROTEIN 9.3 gm/dL (6.4-8.2)
[2019-12-07 09:31] LABS: TROPONIN I 0.101 ng/ml (<0.045)
[2019-12-07 09:32] LABS: OVALOCYTES FEW; POLYCHROMASIA SLIGHT; TOTAL CELLS COUNTED 100 #CELLS; TOXIC GRANULATION SLIGHT
[2019-12-07 09:33] LABS: MICROCYTOSIS SLIGHT; PLATELET SUFFICIENCY NORMAL (NORMAL); TARGET CELLS FEW
[2019-12-07 11:58] VITALS: BP 124/47
--- NOTE | 2019-12-07 12:28 | NUR ---
CLEANED PT. UP BEFORE TAKING UP STAIRS. SOME DIARRHEA, YELLOW W/ NO ODOR.
[2019-12-07 12:30] VITALS: BP 122/45
--- NOTE | 2019-12-07 12:30 | NUR ---
A 59, admitted to 5E, under the services of KIRILL Hutchison DO with a diagnosis of ABDOMINAL PAIN, NAUSEA, VOMITING, DIARHEA. Chief complaint is N/V AND DIARRHEA. Patient arrived via ambulance from ER. Monitor applied. Initial assessment completed. Vital signs taken and recorded. KIRILL HUTCHISON DO notified of admission to the unit. Orders received. See assessment for past medical history, medications and allergies. Patient and/or family oriented to unit. [facility] visitation policy reviewed. Clothing/patient valuable form completed. CHAD HEATON
--- NOTE | 2019-12-07 12:47 | NUR ---
DR. DENNIS NOTIFIED OF CONSULT. NO NEW ORDERS
--- NOTE | 2019-12-07 12:47 | NUR ---
DR. KERNS'S OFFICE NOTIFIED OF NEW CONSULT.
[2019-12-07 16:00] VITALS: BP 144/45
[2019-12-07] MEDS ORDERED: ISOSORBIDE DINI10 M1 PO (16:21)
[2019-12-07] MEDS ORDERED: LOPRESSOR25 MG PO (16:23)
[2019-12-07] MEDS ORDERED: FAMOTIDINE40 MG PO (16:25)
--- NOTE | 2019-12-07 19:00 | NUR ---
ASSUMED CARE FOR THIS PT AT THIS TIME. PT RESTING QUIETLY IN BED. CALL LIGHT IN REACH.
[2019-12-07 20:00] VITALS: BP 135/35
--- NOTE | 2019-12-07 20:21 | NUR ---
DR. LEVINE NOTIFIED OF PT'S MANUAL BP OF 134/30 AND ELEVATED TROPONIN OF 0.360. NO N.O. RCVD AT THIS TIME.
--- NOTE | 2019-12-07 20:38 | NUR ---
PT C/O N/V. EMESIS OF MODERATE AMOUNT OF YELLOW LIQUID. MEDICATED W/PHENERGAN VIA INFUSION PUMP.
--- NOTE | 2019-12-07 20:51 | NUR ---
PT C/O ABD PAIN AND H/A. MEDICATED W/MORPHINE IVP.
[2019-12-07 21:00] VITALS: BP 134/30
--- NOTE | 2019-12-07 21:38 | NUR ---
PT STATES SHE IS NO LONGER NAUSEATED.
--- NOTE | 2019-12-07 21:44 | NUR ---
DR. LEVINE NOTIFIED PT USES CPAP AT HS AT HOME. OK FOR BIPAP 12/6 AND OK TO ADMINISTER METOPROLOL.
--- NOTE | 2019-12-07 21:51 | NUR ---
PT STATES PRN MORPHINE WAS EFFECTIVE FOR PAIN RELIEF.
--- NOTE | 2019-12-07 22:46 | NUR ---
DR. LEVINE NOTIFIED OF PT'S LACTIC ACID OF 2.9.
--- NOTE | 2019-12-07 23:00 | NUR ---
PT'S BGM OF 394. PT REFUSING SS INSULIN. PT STATES SHE TAKES REGULAR INSULIN IN THE AM AND HS.
[2019-12-08] VITALS: BP 114/52
--- NOTE | 2019-12-08 | NUR ---
PT REFUSING BIPAP D/T SHE IS AFRAID SHE WILL VOMIT.
--- NOTE | 2019-12-08 00:30 | NUR ---
DR. CONCEPCION NOTIFIED OF PT'S BS OF 394 AND REFUSING SS INSULIN.
--- NOTE | 2019-12-08 03:15 | NUR ---
PT IS AWAKE AND OFF BIPAP, SHE IS BEING BATHED.
[2019-12-08 07:21] LABS: BASO % 0.1 % (0.0-1.0); EOS % 0.2 % (1.0-4.0); HEMATOCRIT 31.3 % (37.0-47.0); LYMPH # 1.4 10*3/uL (1.3-4.4); LYMPH % 14.9 % (27.0-41.0); MEAN CORPUSCULAR HGB 18.6 pg (27.0-31.0); MEAN CORPUSCULAR HGB CONC 25.9 g/dl (33.0-37.0); MEAN PLATELET VOLUME 10.3 fl (9.6-12.3); MONO # 0.7 10*3/uL (0.1-1.0); MONO % 7.1 % (3.0-9.0); NEUT # 7.4 10*3/uL (2.3-7.9); NEUT % 77.5 % (47.0-73.0); PLATELET COUNT AUTOMATED 277 10*3/uL (130-400); RED BLOOD COUNT 4.35 10*6/uL (4.10-5.10); WHITE BLOOD COUNT 9.5 10*3/uL (4.8-10.8)
[2019-12-08 07:41] LABS: TOTAL CELLS COUNTED 100 #CELLS
[2019-12-08 07:42] LABS: PLATELET SUFFICIENCY NORMAL (NORMAL)
[2019-12-08 07:43] LABS: MICROCYTOSIS MODERATE
[2019-12-08 07:44] LABS: POLYCHROMASIA SLIGHT
[2019-12-08 07:48] LABS: CREATININE 1.21 mg/dL (0.55-1.02); POTASSIUM 3.6 mmol/L (3.5-5.1); TOTAL PROTEIN 7.4 gm/dL (6.4-8.2)
--- NOTE | 2019-12-08 07:52 | NUR ---
PHYSICAL THERAPY Screen received pt admitted from home with nausea with gastric distention from gastroparesis. Please consult PT if pt has a decline in functioan status from baseline thank you Lani Calhoun PT
--- NOTE | 2019-12-08 07:53 | NUR ---
Nursing screen received and chart reviewed. Patient admitted for elevated troponins, JOSEPH, and grastroparesis. If patient has a decline in ADLs, transfers, or functional mobility, please send OT orders. Thank you. Abi Holguin OTR/L
[2019-12-08 08:00] VITALS: BP 128/50
--- NOTE | 2019-12-08 11:37 | NUR ---
DR. CONCEPCION NOTIFIED OF PATIENT'S BLOOD GLUCOSE AND STATED HE WOULD SPEAK TO HER ABOUT IT.
[2019-12-08 12:00] VITALS: BP 107/50
--- NOTE | 2019-12-08 12:07 | NUR ---
Financial Internship in to talk to patient. Patient states lives at HOME with ALONE. There are NO steps in the home. Physician: SCOTT [facility]: [facility] [place] health services: [facility] Patient's level of ADLs: MINIMAL ASSIST Patient has working utilities: YES DME: WALKER, CPAP, ROLLATOR, SHOWER CHAIR Follow-up physician's appointment after d/c: WILL BE MADE BY HOSPITALIST NURSE DIRECTOR Does patient want to access PORTAL?: NONE Discharge plan PT LIVES AT HOME ALONE. STATES SHE HAS AID SERVICES THROUGH PASSPORT FROM [facility]. DENIES SHE WILL HAVE ANY OTHER NEEDS. PLANS TO RETURN HOME WHEN MEDICALLY STABLE. WILL CONTINUE TO FOLLOW. STATES SHE WILL HAVE A RIDE HOME.. FABIÁN RANKIN
--- NOTE | 2019-12-08 13:43 | NUR ---
PT MEDICATED WITH PRN MORPHINE AND PHENERGAN FOR C/O ABDOMINAL PAIN (01/28) AND NAUSEA. WILL MONITOR.
--- NOTE | 2019-12-08 14:30 | NUR ---
PRN MEDS EFFECTIVE PER PT.
[2019-12-08 16:00] VITALS: BP 153/63
--- NOTE | 2019-12-08 19:00 | NUR ---
ASSUMED CARE FOR THIS PT AT THIS TIME. PT RESTING QUIETLY IN BED. CALL LIGHT IN REACH.
--- NOTE | 2019-12-08 20:05 | NUR ---
PT C/O ABD PAIN AND NAUSEA 11/28 MEDICATED W/MORPHINE IVP AND ZOFRAN IVP. PT RESTING QUIETLY IN BED. PT STATES SHE JUST WANTS TO SLEEP.
[2019-12-08 20:09] VITALS: BP 141/61
--- NOTE | 2019-12-08 23:50 | NUR ---
PT REFUSED TO BE PLACED ON BIPAP.
[2019-12-09] VITALS (12 sets, daily range): BP systolic 120–169; BP diastolic 40–76
--- NOTE | 2019-12-09 01:27 | NUR ---
PT MEDICATED W/TYLENOL FOR C/O H/A.
--- NOTE | 2019-12-09 03:23 | NUR ---
PT DRY HEAVING. MEDICATED W/PHENERGAN.
--- NOTE | 2019-12-09 05:56 | NUR ---
PT C/O ABD PAIN 6/10 AND VERY AGITATED. MOANING AND THRASHING ABOUT IN BED. MEDICATED W/MORPHINE IVP. PT TEACHING GIVEN ON S/E OF PAIN MEDS. PT C/O NAUSEA ALSO. SCHEDULED REGLAN GIVEN AT THIS TIME WELL VISTARIL FOR ANXIETY. PT ASSISTED TO BSC AND WIPED PER PT REQUEST. BED LINENS CHANGED AT THIS TIME. CALL LIGHT IN REACH. URINE SAMPLE OBTAINED FOR UA/CS.
[2019-12-09 06:05] LABS: BASO % 0.3 % (0.0-1.0); EOS # 0.1 10*3/uL (0.0-0.4); EOS % 1.2 % (1.0-4.0); HEMATOCRIT 28.5 % (37.0-47.0); LYMPH # 2.6 10*3/uL (1.3-4.4); LYMPH % 22.9 % (27.0-41.0); MEAN CELL VOLUME 74.4 fl (81.0-99.0); MEAN CORPUSCULAR HGB 18.8 pg (27.0-31.0); MEAN CORPUSCULAR HGB CONC 25.3 g/dl (33.0-37.0); MEAN PLATELET VOLUME 10.3 fl (9.6-12.3); MONO # 0.5 10*3/uL (0.1-1.0); MONO % 4.4 % (3.0-9.0); NEUT # 8.1 10*3/uL (2.3-7.9); NEUT % 70.6 % (47.0-73.0); PLATELET COUNT AUTOMATED 293 10*3/uL (130-400); RED BLOOD COUNT 3.83 10*6/uL (4.10-5.10); RED CELL DISTRI WIDTH 20.9 % (0-14.5); WHITE BLOOD COUNT 11.5 10*3/uL (4.8-10.8)
[2019-12-09 06:27] LABS: BUN 26 mg/dl (7-24); CHLORIDE 101 mmol/L (98-107); POTASSIUM 3.6 mmol/L (3.5-5.1); SGOT/AST 17 IU/L (3-35); SGPT/ALT 18 U/L (12-78); SODIUM 135 mmol/L (136-145)
[2019-12-09 06:29] LABS: BILIRUBIN NEGATIVE (NEGATIVE); CLARITY SL CLOUDY (CLEAR); COLOR YELLOW (YELLOW)
[2019-12-09 06:30] LABS: BLOOD NEGATIVE (NEGATIVE); GLUCOSE 1+ (NEGATIVE); KETONE NEGATIVE (NEGATIVE); LEUKO ESTERASE 2+ (NEGATIVE); NITRITE NEGATIVE (NEGATIVE); UROBILINOGEN 0.2 E.U./dl (0.2-1.0); WBC TNTC wbc/hpf (0-5)
[2019-12-09 06:30] LABS: ALKALINE PHOSPHATASE 160 U/L (45-117); CREATININE 1.11 mg/dL (0.55-1.02); TOTAL PROTEIN 7.3 gm/dL (6.4-8.2)
--- NOTE | 2019-12-09 08:31 | NUR ---
ZOFRAN 4 MG GIVEN FOR C/O NAUSEA AND DRY HEAVING.
--- NOTE | 2019-12-09 11:08 | NUR ---
PHENERGRAN 12.5 MG GIVEN FOR C/O NAUSEA AND DRY HEAVING.
--- NOTE | 2019-12-09 11:25 | NUR ---
MORPHINE 2 MG GIVEN FOR C/O ABD PAIN,03/30.
--- NOTE | 2019-12-09 12:40 | NUR ---
PT REFUSING NG UNTIL CT COMPLETE.DR SONNY FITZPATRICK.
--- NOTE | 2019-12-09 13:50 | NUR ---
PT STILL REFUSES NG TUBE.
--- NOTE | 2019-12-09 14:30 | NUR ---
Informed consent obtained from patient for Blood transfussion by Dr. DENNIS. Patient identified by arm band. Vital signs recorded. Blood unit number verified by 2 R.N.'s. I.V. site satisfactory. Unit 1 started at a 75 ML/HR with Normal Saline. BRADLEY TEIXEIRA
--- NOTE | 2019-12-09 14:52 | NUR ---
NOTIFIED DR DENNIS OF PT CT RESULTS. ORDERS RECIEVED.
--- NOTE | 2019-12-09 17:26 | NUR ---
TRANSFUSION COMPLETE. PT TOLERATED WELL. POST VITALS OBTAINED PER PROTOCOL. PT UP TO BEDSIDE. CALL LIGHT IN REACH.
--- NOTE | 2019-12-09 17:32 | NUR ---
ZOFRAN 4 MG GIVEN FOR C/O NAUSEA AND DRY HEAVING.
--- NOTE | 2019-12-09 20:03 | NUR ---
PT C/O ABD PAIN 12/28. MEDICATED W/MORPHINE IVP. PT SITTING ON SIDE OF BED. PT DENIES NAUSEA AT THIS TIME. WILL MONITOR. PT ENCOURAGED TO TRY PO PAIN MED. PT AGREEABLE. CALL LIGHT IN REACH.
--- NOTE | 2019-12-09 21:00 | NUR ---
PT STATES MORPHINE WAS EFFECTIVE FOR ABD PAIN RELIEF.
--- NOTE | 2019-12-09 21:44 | NUR ---
PT MEDICATED W/TYLENOL FOR C/O H/A. S/E OF PAIN MEDS REVIEWED.
[2019-12-10] VITALS: BP 119/47
--- NOTE | 2019-12-10 01:38 | NUR ---
PT MEDICATED W/PERCOCET FOR C/O EPIGASTRIC PAIN. PT CONTINENT OF SM LOOSE BM. ASSISTED W/WIPING AND BACK TO BED. CALL LIGHT IN REACH.
[2019-12-10 06:30] LABS: BASO # 0.1 10*3/uL (0.0-0.1); BASO % 0.5 % (0.0-1.0); EOS # 0.2 10*3/uL (0.0-0.4); EOS % 2.2 % (1.0-4.0); HEMATOCRIT 29.4 % (37.0-47.0); LYMPH # 2.9 10*3/uL (1.3-4.4); LYMPH % 26.8 % (27.0-41.0); MEAN CELL VOLUME 75.2 fl (81.0-99.0); MEAN CORPUSCULAR HGB 19.4 pg (27.0-31.0); MEAN CORPUSCULAR HGB CONC 25.9 g/dl (33.0-37.0); MEAN PLATELET VOLUME 10.2 fl (9.6-12.3); MONO # 0.5 10*3/uL (0.1-1.0); MONO % 4.5 % (3.0-9.0); NEUT # 7.1 10*3/uL (2.3-7.9); NEUT % 65.4 % (47.0-73.0); NUCLEATED RED BLOOD CELL 0.2 % (0.0-0.0); PLATELET COUNT AUTOMATED 264 10*3/uL (130-400); RED BLOOD COUNT 3.91 10*6/uL (4.10-5.10); RED CELL DISTRI WIDTH 20.6 % (0-14.5); WHITE BLOOD COUNT 10.9 10*3/uL (4.8-10.8)
[2019-12-10 06:50] LABS: BUN 19 mg/dl (7-24); CHLORIDE 99 mmol/L (98-107); CREATININE 1.04 mg/dL (0.55-1.02); POTASSIUM 3.2 mmol/L (3.5-5.1); SODIUM 136 mmol/L (136-145)
[2019-12-10 08:00] VITALS: BP 100/49
--- NOTE | 2019-12-10 08:39 | NUR ---
AUGUST GIVEN PRIOR TO PT MEAL PER HER REQUEST.
--- NOTE | 2019-12-10 08:51 | NUR ---
PERCOSET5/325 MG GIVEN FOR C/O GENERALIZED PAIN,01/28.
[2019-12-10] MEDS ORDERED: REGLAN10 M1 PO (08:54)
[2019-12-10] MEDS ORDERED: ZOFRAN4 MG PO (08:54)
[2019-12-10] MEDS ORDERED: K-TAB20 MEQ PO (09:15)
--- NOTE | 2019-12-10 09:58 | NUR ---
Discharge instructions reviewed with patient/family. Patient receptive and verbalizes understanding. Follow-up care arranged. Written instructions given to patient/family. BRADLEY TEIXEIRA
--- NOTE | 2019-12-10 10:46 | NUR ---
DR IGLESIAS AND BINTA SIERRA ROUNDED, ORDERS RECIEVED.
--- NOTE | 2019-12-10 12:13 | NUR ---
PERCOSET GIVEN FOR C/O GENERALIZED PAIN, 01/28.
== END 2019-12-10 09:58 | disposition home health service (06) | DRG 73 ==
LOC: ED 08:32 → 5E 09:55 → EDHOLD 09:55 → 5E 11:35
PROVIDERS: Emergency Medicine; Internal Medicine; ADMIT Internal Medicine
PROC: 5A09357 Assistance with Respiratory Ventilation, Less than 24 Consecutive Hours, Continuous Positive Airway Pressure (ICD-10-PCS; principal; 2019-12-08)
PROC: 30233N1 Transfusion of Nonautologous Red Blood Cells into Peripheral Vein, Percutaneous Approach (ICD-10-PCS; 2019-12-09)
DX: E11.43 Type 2 diabetes mellitus with diabetic autonomic (poly)neuropathy (principal); I21.A1 Myocardial infarction type 2; N17.0 Acute kidney failure with tubular necrosis; E87.2 Acidosis; I13.0 Hypertensive heart and chronic kidney disease with heart failure and stage 1 through stage 4 chronic kidney disease, or unspecified chronic kidney disease; I50.32 Chronic diastolic (congestive) heart failure; Z68.42 Body mass index [BMI] 45.0-49.9, adult; E53.8 Deficiency of other specified B group vitamins; J45.909 Unspecified asthma, uncomplicated; E78.5 Hyperlipidemia, unspecified; E11.51 Type 2 diabetes mellitus with diabetic peripheral angiopathy without gangrene; K21.9 Gastro-esophageal reflux disease without esophagitis; R79.89 Other specified abnormal findings of blood chemistry; E11.65 Type 2 diabetes mellitus with hyperglycemia; R74.8 Abnormal levels of other serum enzymes; E03.9 Hypothyroidism, unspecified; F41.9 Anxiety disorder, unspecified; N18.9 Chronic kidney disease, unspecified; D64.9 Anemia, unspecified; G47.33 Obstructive sleep apnea (adult) (pediatric); I25.10 Atherosclerotic heart disease of native coronary artery without angina pectoris; E11.22 Type 2 diabetes mellitus with diabetic chronic kidney disease; K31.84 Gastroparesis; Z79.4 Long term (current) use of insulin; Z86.718 Personal history of other venous thrombosis and embolism; I25.2 Old myocardial infarction; Z98.891 History of uterine scar from previous surgery; Z89.421 Acquired absence of other right toe(s); Z87.891 Personal history of nicotine dependence; Z80.0 Family history of malignant neoplasm of digestive organs; Z80.1 Family history of malignant neoplasm of trachea, bronchus and lung; Z80.52 Family history of malignant neoplasm of bladder; Z88.1 Allergy status to other antibiotic agents; Z88.8 Allergy status to other drugs, medicaments and biological substances; Z91.09 Other allergy status, other than to drugs and biological substances; Z79.82 Long term (current) use of aspirin; Z79.899 Other long term (current) drug therapy; Z79.01 Long term (current) use of anticoagulants

== ENCOUNTER 2020-01-16 10:01 | Inpatient (IN) | payer OTHER ==
[~2020-01-16] VITALS: Ht 167.6 cm; Wt 146.3 kg
[~2020-01-16 10:01] MED LIST changes: +FAMOTIDINE40 MG PO; +ISOSORBIDE DINI10 M1 PO; +K-TAB20 MEQ PO; +REGLAN10 M1 PO; +ZOFRAN4 MG PO
[2020-01-16 10:08] VITALS: BP 134/45
[2020-01-16 11:11] LABS: BASO % 0.3 % (0.0-1.0); EOS # 0.2 10*3/uL (0.0-0.4); EOS % 2.5 % (1.0-4.0); LYMPH # 1.7 10*3/uL (1.3-4.4); LYMPH % 17.8 % (27.0-41.0); MEAN CELL VOLUME 77.1 fl (81.0-99.0); MEAN CORPUSCULAR HGB 19.6 pg (27.0-31.0); MEAN CORPUSCULAR HGB CONC 25.4 g/dl (33.0-37.0); MEAN PLATELET VOLUME 10.7 fl (9.6-12.3); MONO # 0.5 10*3/uL (0.1-1.0); NEUT # 6.9 10*3/uL (2.3-7.9); NEUT % 73.9 % (47.0-73.0); NUCLEATED RED BLOOD CELL 0.2 % (0.0-0.0); PLATELET COUNT AUTOMATED 289 10*3/uL (130-400); RED BLOOD COUNT 3.63 10*6/uL (4.10-5.10); RED CELL DISTRI WIDTH 22.7 % (0-14.5); WHITE BLOOD COUNT 9.3 10*3/uL (4.8-10.8)
[2020-01-16 11:20] LABS: ACT PARTIAL THROMBO TIME 25.9 SECONDS (20.0-32.1)
[2020-01-16 11:26] LABS: ALBUMIN 3.1 gm/dl (3.1-4.5); ALKALINE PHOSPHATASE 282 U/L (45-117); BUN 24 mg/dl (7-24); CHLORIDE 97 mmol/L (98-107); CREATININE 1.13 mg/dL (0.55-1.02); LIPASE 126 U/L (73-393); POTASSIUM 3.4 mmol/L (3.5-5.1); SGOT/AST 18 IU/L (3-35); SGPT/ALT 18 U/L (12-78); SODIUM 136 mmol/L (136-145); TOTAL PROTEIN 7.7 gm/dL (6.4-8.2); TROPONIN I < 0.015 ng/ml (<0.045)
[2020-01-16] MEDS ORDERED: NORCO 5-325 TA1 EACH PO (16:44)
[2020-01-16] MEDS ORDERED: Ondansetron4 MG PO (16:48)
[2020-01-16] MEDS ORDERED: CRESTOR20 M1 PO (16:49)
[2020-01-16] MEDS ORDERED: TRULICITY1.5 MG/0.5 SC (16:50)
[2020-01-16] MEDS ORDERED: FARXIGA10 M1 PO (16:55)
[2020-01-16] MEDS ORDERED: OZEMPIC0.25 MG/01 SC (16:57)
[2020-01-16 18:04] VITALS: BP 90/50
[2020-01-16 18:41] VITALS: BP 102/54
[2020-01-16 20:00] VITALS: BP 112/43
[2020-01-16 21:00] VITALS: BP 125/55
[2020-01-16 23:07] LABS: BASO % 0.5 % (0.0-1.0); EOS # 0.2 10*3/uL (0.0-0.4); EOS % 2.4 % (1.0-4.0); HEMATOCRIT 29.8 % (37.0-47.0); LYMPH # 1.1 10*3/uL (1.3-4.4); LYMPH % 13.5 % (27.0-41.0); MEAN CORPUSCULAR HGB 20.2 pg (27.0-31.0); MEAN CORPUSCULAR HGB CONC 26.2 g/dl (33.0-37.0); MEAN PLATELET VOLUME 10.1 fl (9.6-12.3); MONO # 0.4 10*3/uL (0.1-1.0); MONO % 4.4 % (3.0-9.0); NEUT # 6.7 10*3/uL (2.3-7.9); NEUT % 78.7 % (47.0-73.0); PLATELET COUNT AUTOMATED 272 10*3/uL (130-400); RED BLOOD COUNT 3.87 10*6/uL (4.10-5.10); RED CELL DISTRI WIDTH 22.1 % (0-14.5); WHITE BLOOD COUNT 8.5 10*3/uL (4.8-10.8)
[2020-01-17] VITALS: BP 116/47
[2020-01-17 06:30] LABS: BASO % 0.5 % (0.0-1.0); EOS # 0.3 10*3/uL (0.0-0.4); EOS % 3.2 % (1.0-4.0); HEMATOCRIT 29.3 % (37.0-47.0); LYMPH # 1.6 10*3/uL (1.3-4.4); LYMPH % 20.7 % (27.0-41.0); MEAN CELL VOLUME 76.7 fl (81.0-99.0); MEAN CORPUSCULAR HGB 20.2 pg (27.0-31.0); MEAN CORPUSCULAR HGB CONC 26.3 g/dl (33.0-37.0); MEAN PLATELET VOLUME 10.1 fl (9.6-12.3); MONO # 0.5 10*3/uL (0.1-1.0); MONO % 6.4 % (3.0-9.0); NEUT # 5.3 10*3/uL (2.3-7.9); NEUT % 68.7 % (47.0-73.0); NUCLEATED RED BLOOD CELL 0.3 % (0.0-0.0); PLATELET COUNT AUTOMATED 259 10*3/uL (130-400); RED BLOOD COUNT 3.82 10*6/uL (4.10-5.10); WHITE BLOOD COUNT 7.8 10*3/uL (4.8-10.8)
[2020-01-17 06:32] LABS: ALBUMIN 2.8 gm/dl (3.1-4.5); ALKALINE PHOSPHATASE 288 U/L (45-117); BUN 19 mg/dl (7-24); CHLORIDE 102 mmol/L (98-107); CHOLESTEROL 60 mg/dL (<200); CREATININE 0.92 mg/dL (0.55-1.02); FREE T4 1.33 ng/dl (0.76-1.46); HDL CHOLESTEROL 18 mg/dl (40-60); LDL CHOLESTEROL 11 mg/dL (9-159); POTASSIUM 3.6 mmol/L (3.5-5.1); SGOT/AST 22 IU/L (3-35); SGPT/ALT 15 U/L (12-78); SODIUM 139 mmol/L (136-145); TOTAL PROTEIN 7.4 gm/dL (6.4-8.2); TRIGLYCERIDES 153 mg/dl (<150); VLDL CHOLESTEROL 31 mg/dL (6-40)
[2020-01-17 06:41] LABS: ACT PARTIAL THROMBO TIME 26.2 SECONDS (20.0-32.1); INTERNATIONAL NORM RATIO 1.1 (2.0-3.5)
[2020-01-17 08:20] LABS: VITAMIN D, 25-HYDROXY 64.6 ng/mL (30-100)
[2020-01-17 12:00] VITALS: BP 124/39
[2020-01-17 16:00] VITALS: BP 118/35
[2020-01-17] MEDS ORDERED: SEPTDS PO (16:59)
== END 2020-01-17 17:40 | disposition home or self-care (01) | DRG 603 ==
LOC: ED 10:01 → 4E 13:46 → EDHOLD 13:46 → 4E 14:03
PROVIDERS: Hospitalist; Nurse Practitioner Family; Student in an Organized Health Care Education/Training Program; ADMIT Internal Medicine
PROC: 30233N1 Transfusion of Nonautologous Red Blood Cells into Peripheral Vein, Percutaneous Approach (ICD-10-PCS; principal; 2020-01-16)
DX: L03.116 Cellulitis of left lower limb (principal); I50.22 Chronic systolic (congestive) heart failure; M86.671 Other chronic osteomyelitis, right ankle and foot; L97.429 Non-pressure chronic ulcer of left heel and midfoot with unspecified severity; Z68.43 Body mass index [BMI] 50.0-59.9, adult; N17.9 Acute kidney failure, unspecified; E11.621 Type 2 diabetes mellitus with foot ulcer; E87.6 Hypokalemia; G47.33 Obstructive sleep apnea (adult) (pediatric); E11.65 Type 2 diabetes mellitus with hyperglycemia; D50.9 Iron deficiency anemia, unspecified; E03.9 Hypothyroidism, unspecified; K21.9 Gastro-esophageal reflux disease without esophagitis; I11.0 Hypertensive heart disease with heart failure; I25.10 Atherosclerotic heart disease of native coronary artery without angina pectoris; E11.69 Type 2 diabetes mellitus with other specified complication; J45.909 Unspecified asthma, uncomplicated; E78.2 Mixed hyperlipidemia; F41.9 Anxiety disorder, unspecified; E66.01 Morbid (severe) obesity due to excess calories; E11.42 Type 2 diabetes mellitus with diabetic polyneuropathy; E11.51 Type 2 diabetes mellitus with diabetic peripheral angiopathy without gangrene; Z95.9 Presence of cardiac and vascular implant and graft, unspecified; Z86.718 Personal history of other venous thrombosis and embolism; Z86.73 Personal history of transient ischemic attack (TIA), and cerebral infarction without residual deficits; I25.2 Old myocardial infarction; Z88.1 Allergy status to other antibiotic agents; Z91.09 Other allergy status, other than to drugs and biological substances; Z98.891 History of uterine scar from previous surgery; Z89.421 Acquired absence of other right toe(s); Z87.891 Personal history of nicotine dependence; Z80.0 Family history of malignant neoplasm of digestive organs; Z80.1 Family history of malignant neoplasm of trachea, bronchus and lung; Z80.52 Family history of malignant neoplasm of bladder; Z79.82 Long term (current) use of aspirin; Z82.49 Family history of ischemic heart disease and other diseases of the circulatory system; Z79.899 Other long term (current) drug therapy; Z79.02 Long term (current) use of antithrombotics/antiplatelets